=== PATIENT | male | born 1950 | race Caucasian/White ===

== ENCOUNTER → 2017-05-04 | Outpatient (CLI) | payer MEDICARE ==
[2017-05-04 09:15] LABS: HEMATOCRIT 46.6 % (42.0-52.0); HEMOGLOBIN 15.1 g/dl (14.0-18.0); MEAN CORPUSCULAR HEMOGLOBIN 28.9 pg (27.0-33.0); MEAN CORPUSCULAR HGB CONC 32.4 g/dl (32.0-36.5); MEAN CORPUSCULAR VOLUME 89.1 fl (80.0-96.0); PLATELET COUNT, AUTOMATED 186 10^3/uL (150-450); RED BLOOD COUNT 5.23 10^6/uL (4.30-6.10); RED CELL DISTRIBUTION WIDTH 14.4 % (11.5-14.5); WHITE BLOOD COUNT 7.8 10^3/uL (4.0-10.0)
[2017-05-04 09:40] LABS: ESTIMATED AVERAGE GLUCOSE 134 MG/DL (60-110); HEMOGLOBIN A1c 6.3 %
[2017-05-04 09:41] LABS: ALBUMIN 3.5 GM/DL (3.2-5.2); ALBUMIN/GLOBULIN RATIO 0.78 (1.00-1.93); ALKALINE PHOSPHATASE 76 U/L (45-117); ALT/SGPT 30 U/L (12-78); ANION GAP 8 MEQ/L (8-16); AST/SGOT 26 U/L (7-37); BILIRUBIN,TOTAL 0.6 MG/DL (0.2-1.0); BLOOD UREA NITROGEN 15 MG/DL (7-18); CALCIUM LEVEL 9.1 MG/DL (8.8-10.2); CARBON DIOXIDE LEVEL 30 MEQ/L (21-32); CHLORIDE LEVEL 104 MEQ/L (98-107); CREATININE FOR GFR 0.75 MG/DL (0.70-1.30); FREE T4 0.88 NG/DL (0.76-1.46); GLOMERULAR FILTRATION RATE > 60.0 (>49); GLUCOSE, FASTING 127 MG/DL (70-100); SODIUM LEVEL 142 MEQ/L (136-145)
== END ==
LOC: M WUC 08:14
DX: E11.65 Type 2 diabetes mellitus with hyperglycemia (principal)
CPT/HCPCS: 84443

== ENCOUNTER → 2017-09-08 | Outpatient (CLI) | payer MEDICARE ==
[2017-09-08 12:30] LABS: ALBUMIN 3.4 GM/DL (3.2-5.2); ALBUMIN/GLOBULIN RATIO 0.79 (1.00-1.93); ALKALINE PHOSPHATASE 79 U/L (45-117); ALT/SGPT 36 U/L (12-78); ANION GAP 10 MEQ/L (8-16); AST/SGOT 29 U/L (7-37); BILIRUBIN,TOTAL 0.7 MG/DL (0.2-1.0); BLOOD UREA NITROGEN 14 MG/DL (7-18); CARBON DIOXIDE LEVEL 26 MEQ/L (21-32); CHLORIDE LEVEL 105 MEQ/L (98-107); CHOLESTEROL LEVEL 161 MG/DL (<200); CHOLESTEROL RISK RATIO 3.096 (<5); CREATININE FOR GFR 0.69 MG/DL (0.70-1.30); GLOMERULAR FILTRATION RATE > 60.0 (>49); GLUCOSE, FASTING 139 MG/DL (70-100); HDL CHOLESTEROL 52 MG/DL (>40); LDL CHOLESTEROL 87.4 MG/DL (<100); NON-HDL-C 109 MG/DL; POTASSIUM SERUM 4.8 MEQ/L (3.5-5.1); SODIUM LEVEL 141 MEQ/L (136-145); TOTAL PROTEIN 7.7 GM/DL (6.4-8.2); TRIGLYCERIDES LEVEL 108 MG/DL (<150)
[2017-09-08 12:51] LABS: MALB URINE SIEMENS 48.1 MG/L; MAU/CREAT RATIO 42.1 MCG/MG (0.0-30.0)
[2017-09-08 12:52] LABS: ESTIMATED AVERAGE GLUCOSE 154 MG/DL (60-110)
== END ==
LOC: M WUC 08:15
DX: E11.65 Type 2 diabetes mellitus with hyperglycemia (principal)
CPT/HCPCS: 80053

== ENCOUNTER → 2018-02-15 | Outpatient (CLI) | payer MEDICARE ==
[2018-02-15 09:56] LABS: ANION GAP 7 MEQ/L (8-16); BLOOD UREA NITROGEN 15 MG/DL (7-18); CALCIUM LEVEL 9.6 MG/DL (8.8-10.2); CARBON DIOXIDE LEVEL 30 MEQ/L (21-32); CHLORIDE LEVEL 103 MEQ/L (98-107); CREATININE FOR GFR 0.68 MG/DL (0.70-1.30); GLOMERULAR FILTRATION RATE > 60.0 (>49); GLUCOSE, FASTING 117 MG/DL (70-100); POTASSIUM SERUM 4.2 MEQ/L (3.5-5.1); SODIUM LEVEL 140 MEQ/L (136-145)
[2018-02-15 10:46] LABS: ESTIMATED AVERAGE GLUCOSE 137 MG/DL (60-110); HEMOGLOBIN A1c 6.4 %
== END ==
LOC: M WUC 08:13
DX: E11.65 Type 2 diabetes mellitus with hyperglycemia (principal)
CPT/HCPCS: 83036

== ENCOUNTER → 2018-11-15 | Outpatient (CLI) | payer MEDICARE ==
[~2018-11-15] MED LIST: FLOM0.4C39 PO; HYDR12.55 PO; LISI5TAB PO; METF1000 PO; OXYB5TAB PO; PROSCAR PO; SEPTRA DS PO
[2018-11-15 09:44] LABS: ALBUMIN 3.4 GM/DL (3.2-5.2); ALT/SGPT 22 U/L (12-78); BILIRUBIN,TOTAL 0.6 MG/DL (0.2-1.0); BLOOD UREA NITROGEN 18 MG/DL (7-18); CALCIUM LEVEL 9.4 MG/DL (8.8-10.2); CARBON DIOXIDE LEVEL 29 MEQ/L (21-32); CHLORIDE LEVEL 104 MEQ/L (98-107); CHOLESTEROL LEVEL 166 MG/DL (<200); CHOLESTEROL RISK RATIO 3.074 (<5); CREATININE FOR GFR 0.68 MG/DL (0.70-1.30); GLOMERULAR FILTRATION RATE > 60.0 (>49); GLUCOSE, FASTING 111 MG/DL (70-100); HDL CHOLESTEROL 54 MG/DL (>40); LDL CHOLESTEROL 88 MG/DL (<100); NON-HDL-C 112 MG/DL; POTASSIUM SERUM 4.5 MEQ/L (3.5-5.1); SODIUM LEVEL 141 MEQ/L (136-145); TOTAL PROTEIN 7.6 GM/DL (6.4-8.2); TRIGLYCERIDES LEVEL 119 MG/DL (<150)
[2018-11-15 09:46] LABS: CREATININE, URINE 77.9 MG/DL; MALB URINE SIEMENS 46.6 MG/L; MAU/CREAT RATIO 59.8 MCG/MG (0.0-30.0)
[2018-11-15 14:24] LABS: HEMOGLOBIN A1c 6.2 %
== END ==
LOC: M WUC 08:14
PROVIDERS: ATTEND Family Medicine
DX: E11.65 Type 2 diabetes mellitus with hyperglycemia (principal)

== ENCOUNTER → 2019-04-26 | Outpatient (CLI) | payer MEDICARE ==
[2019-04-26 10:42] LABS: HEMATOCRIT 48.9 % (42.0-52.0); HEMOGLOBIN 15.1 g/dl (13.5-17.5); MEAN CORPUSCULAR HGB CONC 30.9 g/dl (32.0-36.5); MEAN CORPUSCULAR VOLUME 90.6 fl (80.0-96.0); PLATELET COUNT, AUTOMATED 198 10^3/uL (150-450); WHITE BLOOD COUNT 7.8 10^3/uL (4.0-10.0)
[2019-04-26 10:58] LABS: HEMOGLOBIN A1c 6.7 %
[2019-04-26 11:13] LABS: ALBUMIN 3.4 GM/DL (3.2-5.2); ALT/SGPT 23 U/L (12-78); BILIRUBIN,TOTAL 0.7 MG/DL (0.2-1.0); BLOOD UREA NITROGEN 16 MG/DL (7-18); CALCIUM LEVEL 9.6 MG/DL (8.8-10.2); CARBON DIOXIDE LEVEL 30 MEQ/L (21-32); CHLORIDE LEVEL 104 MEQ/L (98-107); CREATININE FOR GFR 0.66 MG/DL (0.70-1.30); GLOMERULAR FILTRATION RATE > 60.0 (>49); GLUCOSE, FASTING 130 MG/DL (70-100); POTASSIUM SERUM 4.5 MEQ/L (3.5-5.1); SODIUM LEVEL 142 MEQ/L (136-145); TOTAL PROTEIN 7.6 GM/DL (6.4-8.2)
== END ==
LOC: M WUC 08:36
PROVIDERS: ATTEND Family Medicine
DX: I87.329 Chronic venous hypertension (idiopathic) with inflammation of unspecified lower extremity (principal); E11.65 Type 2 diabetes mellitus with hyperglycemia

== ENCOUNTER 2021-08-06 20:44 | Emergency (ER) | payer MEDICARE ==
[~2021-08-06] VITALS: Ht 170.2 cm; Wt 156.0 kg
[~2021-08-06 20:44] MED LIST changes: +ACET1TAB55 PO; +BISA10SU PR; +C 50TAB PO; +CINN500C2 PO; +COLA100C5 PO; +FINA5TAB2 PO; +FURO40TA2 PO; +GARL500C2 PO; +GLIM2TAB4 PO; +HEPA500023 SQ; +IBUP-1720 PO; +LIDO2URO TOP; +LISI10TA22 PO; +MAGN400T35 PO; +METF10004 PO; +MIRA1POW3 PO; +NYST10006 TOP; +SENN18TA PO; +VITA100093 PO; +VITATAB73 PO; +ZINC1TAB2 PO
[2021-08-06] MEDS ORDERED: LIDOCAINE 2% 5ML JELLY UROJET TOP ONE (21:10)
[2021-08-06 23:00] VITALS: BP 135/74
== END 2021-08-07 00:54 | disposition home or self-care (01) ==
LOC: M ED 20:44 → EDBD 20:44 → M ED 08-07 00:54
DX: T83.098A Other mechanical complication of other urinary catheter, initial encounter (principal); R31.9 Hematuria, unspecified; N40.1 Benign prostatic hyperplasia with lower urinary tract symptoms; E11.9 Type 2 diabetes mellitus without complications; I50.9 Heart failure, unspecified; Z87.442 Personal history of urinary calculi; Z79.84 Long term (current) use of oral hypoglycemic drugs; Z79.899 Other long term (current) drug therapy

== ENCOUNTER 2021-08-07 10:50 | Emergency (ER) | payer MEDICARE ==
[~2021-08-07] VITALS: Ht 170.2 cm; Wt 154.6 kg
[2021-08-07 14:42] VITALS: BP 120/68
== END 2021-08-07 14:45 | disposition home or self-care (01) ==
LOC: M ED 10:50 → EDBD 10:50 → M ED 14:45
DX: R31.0 Gross hematuria (principal); T83.098A Other mechanical complication of other urinary catheter, initial encounter; N40.1 Benign prostatic hyperplasia with lower urinary tract symptoms; E11.9 Type 2 diabetes mellitus without complications; Z87.442 Personal history of urinary calculi; Z79.84 Long term (current) use of oral hypoglycemic drugs; Z79.899 Other long term (current) drug therapy; Z88.7 Allergy status to serum and vaccine

== ENCOUNTER 2021-08-09 13:43 | Inpatient (IN) | payer MEDICARE ==
[~2021-08-09] VITALS: Ht 170.2 cm; Wt 147.6 kg
[~2021-08-09 13:43] MED LIST changes: +ENOXAPARIN 60MG/0.6ML SYRINGE (J1650 PER 10MG) SC SCH
[2021-08-09 14:58] LABS: BASO % 0.3 % (0.0-1.0); EOS # 0.1 10^3/uL (0.0-0.5); EOS % 1.2 % (0.0-3.0); HEMATOCRIT 43.8 % (42.0-52.0); HEMOGLOBIN 14.1 g/dl (13.5-17.5); LYMPH # 0.8 10^3/uL (1.5-5.0); LYMPH % 12.8 % (24.0-44.0); MEAN CORPUSCULAR HEMOGLOBIN 28.5 pg (27.0-33.0); MEAN CORPUSCULAR HGB CONC 32.2 g/dl (32.0-36.5); MEAN CORPUSCULAR VOLUME 88.5 fl (80.0-96.0); MONO # 0.6 10^3/uL (0.0-0.8); NEUTROPHILS % 76.2 % (36.0-66.0); PLATELET COUNT, AUTOMATED 134 10^3/uL (150-450); RED BLOOD COUNT 4.95 10^6/uL (4.30-6.10); WHITE BLOOD COUNT 6.6 10^3/uL (4.0-10.0)
[2021-08-09 15:24] LABS: BLOOD UREA NITROGEN 27 MG/DL (7-18); CALCIUM LEVEL 9.2 MG/DL (8.8-10.2); CARBON DIOXIDE LEVEL 26 MEQ/L (21-32); CHLORIDE LEVEL 109 MEQ/L (98-107); CREATININE FOR GFR 1.01 MG/DL (0.70-1.30); GLOMERULAR FILTRATION RATE > 60.0 (>42); GLUCOSE, FASTING 128 MG/DL (70-100); SODIUM LEVEL 145 MEQ/L (136-145)
[2021-08-09 15:49] LABS: RSV AMPLIFICATION NEGATIVE (NEGATIVE)
[2021-08-09] MEDS ORDERED: cefTRIAXone SOD 1 GM in D5W MINI-BAG PLUS 50 ML IV ONE (16:00)
[2021-08-09] MEDS ORDERED: GLUCOSE 4GM CHEW TABLET PO PRN (16:40)
[2021-08-09] MEDS ORDERED: GLUCAGON INJ 1MG VIAL SC PRN (16:40)
[2021-08-09] MEDS ORDERED: DEXTROSE 50% 50 ML SYRINGE IV PRN (16:40)
[2021-08-09] MEDS ORDERED: DOCU100C16 PO (16:41)
[2021-08-09] MEDS ORDERED: LISI10TA22 PO (16:41)
[2021-08-09] MEDS ORDERED: SENN-80 PO (16:41)
[2021-08-09] MEDS ORDERED: FURO20TA2 PO (16:41)
[2021-08-09] MEDS ORDERED: POLY1POW38 PO (16:41)
[2021-08-09] MEDS ORDERED: BISA10SU27 PR (16:41)
[2021-08-09] MEDS ORDERED: ACET1TAB55 PO (16:41)
[2021-08-09] MEDS ORDERED: IBUP-1720 PO (17:08)
[2021-08-09] MEDS ORDERED: HOME MED LIST COMPLETE! XX SCH (17:10)
[2021-08-09 18:00] VITALS: BP 105/52
[2021-08-09] MEDS: dexameTHASONE 20MG/5ML VIAL (J1100 PER 1MG) IV SCH (18:52)
[2021-08-09] MEDS: INSULIN LISPRO (NovoLOG) PER UNIT SC SCH ×2 (18:52→21:00)
[2021-08-09 19:22] VITALS: BP 115/56
[2021-08-09 19:28] LABS: ALBUMIN 2.3 GM/DL (3.2-5.2); BILIRUBIN,DIRECT 0.3 MG/DL (0.0-0.2); BILIRUBIN,TOTAL 0.6 MG/DL (0.2-1.0); TOTAL PROTEIN 7.4 GM/DL (6.4-8.2)
[2021-08-09] MEDS ORDERED: REMDESIVIR 200 MG in NS 250 ML IV ONE (21:00)
[2021-08-09] MEDS: DOXYCYCLINE HYCLATE 100MG TABLET PO SCH (21:54)
[2021-08-09] MEDS: CEFEPIME HCL 2 GM in D5W MINI-BAG PLUS 50 ML IV SCH (21:56)
[2021-08-09] MEDS ORDERED: SODIUM CHLORIDE 0.9% INJ 10 ML SYR IV ONE (22:00)
[2021-08-10] VITALS (10 sets, daily range): BP systolic 104–149; BP diastolic 54–82; O2SAT 90–94
[2021-08-10] MEDS: NYSTATIN 100,000 UNITS/GM TOPICAL PWD 15 GM TOP SCH ×3 (02:09→21:57)
[2021-08-10] MEDS: CEFEPIME HCL 2 GM in D5W MINI-BAG PLUS 50 ML IV SCH (04:10)
[2021-08-10] MEDS: ENOXAPARIN 60MG/0.6ML SYRINGE (J1650 PER 10MG) SC SCH ×2 (05:07→17:06)
[2021-08-10 08:08] LABS: BASO % 0.2 % (0.0-1.0); HEMATOCRIT 41.3 % (42.0-52.0); HEMOGLOBIN 13.1 g/dl (13.5-17.5); LYMPH # 0.8 10^3/uL (1.5-5.0); LYMPH % 12.7 % (24.0-44.0); MEAN CORPUSCULAR HEMOGLOBIN 28.3 pg (27.0-33.0); MEAN CORPUSCULAR HGB CONC 31.7 g/dl (32.0-36.5); MEAN CORPUSCULAR VOLUME 89.2 fl (80.0-96.0); MONO # 0.5 10^3/uL (0.0-0.8); MONO % 7.8 % (2.0-8.0); NEUTROPHILS # 4.7 10^3/uL (1.5-8.5); PLATELET COUNT, AUTOMATED 146 10^3/uL (150-450); RED BLOOD COUNT 4.63 10^6/uL (4.30-6.10)
[2021-08-10 08:33] LABS: ALBUMIN 2.1 GM/DL (3.2-5.2); ALT/SGPT 19 U/L (12-78); BILIRUBIN,DIRECT 0.2 MG/DL (0.0-0.2); BILIRUBIN,TOTAL 0.4 MG/DL (0.2-1.0); BLOOD UREA NITROGEN 26 MG/DL (7-18); CALCIUM LEVEL 9.1 MG/DL (8.8-10.2); CARBON DIOXIDE LEVEL 28 MEQ/L (21-32); CHLORIDE LEVEL 110 MEQ/L (98-107); CREATININE FOR GFR 0.99 MG/DL (0.70-1.30); GLOMERULAR FILTRATION RATE > 60.0 (>42); GLUCOSE, FASTING 136 MG/DL (70-100); PHOSPHORUS LEVEL 4.3 MG/DL (2.5-4.9); POTASSIUM SERUM 3.9 MEQ/L (3.5-5.1); SODIUM LEVEL 143 MEQ/L (136-145); TOTAL PROTEIN 7.8 GM/DL (6.4-8.2)
[2021-08-10] MEDS: MUPIROCIN 2% OINT 22 GM TUBE TOP SCH (09:00)
[2021-08-10] MEDS: FUROSEMIDE 20MG/2ML VIAL (J1940) IV SCH (09:36)
[2021-08-10] MEDS: BARICITINIB 2MG TABLET (OLUMIANT) FOR EUA PO SCH (09:36)
[2021-08-10] MEDS: INSULIN LISPRO (NovoLOG) PER UNIT SC SCH ×4 (09:37→21:00)
[2021-08-10] MEDS: DOXYCYCLINE HYCLATE 100MG TABLET PO SCH ×2 (09:37→21:56)
[2021-08-10] MEDS: ASCORBIC ACID 500 MG TAB PO SCH (09:37)
[2021-08-10] MEDS: TAMSULOSIN 0.4 MG CAP PO SCH (09:37)
[2021-08-10] MEDS: VITAMIN D 1,000 INTERNATIONAL UNITS TABLET PO SCH (09:37)
[2021-08-10] MEDS: FINASTERIDE 5MG TAB PO SCH (09:38)
[2021-08-10] MEDS ORDERED: LEVALBUTEROL HFA 45MCG/ACT 15 GM INHALER INH PRN (09:45)
[2021-08-10] MEDS: AMPICILLIN SOD/SULBACTAM SOD 3 GM in D5W MINI-BAG PLUS 100 ML IV SCH ×3 (12:46→23:19)
[2021-08-10] MEDS: dexameTHASONE 20MG/5ML VIAL (J1100 PER 1MG) IV SCH (17:05)
[2021-08-10] MEDS: REMDESIVIR 100 MG in NS 250 ML IV SCH (21:57)
[2021-08-10] MEDS: SODIUM CHLORIDE 0.9% INJ 10 ML SYR IV SCH (23:19)
[2021-08-11] VITALS (16 sets, daily range): BP systolic 101–144; BP diastolic 52–66; O2SAT 91–98
[2021-08-11] MEDS: ACETAMINOPHEN TAB 650MG DOSE (2X325MG) PO PRN ×3 (00:30→17:15)
[2021-08-11] MEDS: ENOXAPARIN 60MG/0.6ML SYRINGE (J1650 PER 10MG) SC SCH ×2 (05:44→17:14)
[2021-08-11] MEDS: AMPICILLIN SOD/SULBACTAM SOD 3 GM in D5W MINI-BAG PLUS 100 ML IV SCH ×4 (05:45→22:42)
[2021-08-11 08:16] LABS: BASO % 0.2 % (0.0-1.0); HEMATOCRIT 42.2 % (42.0-52.0); HEMOGLOBIN 13.3 g/dl (13.5-17.5); LYMPH # 0.9 10^3/uL (1.5-5.0); LYMPH % 20.6 % (24.0-44.0); MEAN CORPUSCULAR HEMOGLOBIN 28.3 pg (27.0-33.0); MEAN CORPUSCULAR HGB CONC 31.5 g/dl (32.0-36.5); MEAN CORPUSCULAR VOLUME 89.8 fl (80.0-96.0); MONO # 0.4 10^3/uL (0.0-0.8); MONO % 8.8 % (2.0-8.0); NEUTROPHILS % 69.9 % (36.0-66.0); PLATELET COUNT, AUTOMATED 175 10^3/uL (150-450); WHITE BLOOD COUNT 4.2 10^3/uL (4.0-10.0)
[2021-08-11] MEDS: DOXYCYCLINE HYCLATE 100MG TABLET PO SCH ×2 (08:19→20:28)
[2021-08-11] MEDS: ASCORBIC ACID 500 MG TAB PO SCH (08:20)
[2021-08-11] MEDS: TAMSULOSIN 0.4 MG CAP PO SCH (08:20)
[2021-08-11] MEDS: FINASTERIDE 5MG TAB PO SCH (08:20)
[2021-08-11] MEDS: BARICITINIB 2MG TABLET (OLUMIANT) FOR EUA PO SCH (08:20)
[2021-08-11] MEDS: VITAMIN D 1,000 INTERNATIONAL UNITS TABLET PO SCH (08:20)
[2021-08-11] MEDS: MUPIROCIN 2% OINT 22 GM TUBE TOP SCH (08:22)
[2021-08-11] MEDS: FUROSEMIDE 20MG/2ML VIAL (J1940) IV SCH (08:22)
[2021-08-11] MEDS: NYSTATIN 100,000 UNITS/GM TOPICAL PWD 15 GM TOP SCH ×2 (08:23→20:28)
[2021-08-11 08:58] LABS: ALBUMIN 2.1 GM/DL (3.2-5.2); ALT/SGPT 22 U/L (12-78); BILIRUBIN,TOTAL 0.4 MG/DL (0.2-1.0); BLOOD UREA NITROGEN 28 MG/DL (7-18); C REACTIVE PROTEIN QUANTITATIV 6.64 MG/DL (0.00-0.30); CALCIUM LEVEL 9.2 MG/DL (8.8-10.2); CARBON DIOXIDE LEVEL 31 MEQ/L (21-32); CHLORIDE LEVEL 108 MEQ/L (98-107); CREATININE FOR GFR 0.92 MG/DL (0.70-1.30); GLOMERULAR FILTRATION RATE > 60.0 (>42); GLUCOSE, FASTING 132 MG/DL (70-100); MAGNESIUM LEVEL 2.1 MG/DL (1.8-2.4); PHOSPHORUS LEVEL 3.1 MG/DL (2.5-4.9); POTASSIUM SERUM 4.4 MEQ/L (3.5-5.1); SODIUM LEVEL 144 MEQ/L (136-145); TOTAL PROTEIN 7.9 GM/DL (6.4-8.2)
[2021-08-11] MEDS: INSULIN LISPRO (NovoLOG) PER UNIT SC SCH ×4 (09:14→20:28)
[2021-08-11] MEDS: dexameTHASONE 20MG/5ML VIAL (J1100 PER 1MG) IV SCH (17:14)
[2021-08-11] MEDS: SODIUM CHLORIDE 0.9% INJ 10 ML SYR IV SCH (20:28)
[2021-08-11] MEDS: REMDESIVIR 100 MG in NS 250 ML IV SCH (20:28)
[2021-08-11] MEDS ORDERED: IBUPROFEN 400MG TAB PO ONE (22:10)
[2021-08-12 05:21] VITALS: BP 130/61
[2021-08-12] MEDS: AMPICILLIN SOD/SULBACTAM SOD 3 GM in D5W MINI-BAG PLUS 100 ML IV SCH ×2 (05:31→10:12)
[2021-08-12] MEDS: ENOXAPARIN 60MG/0.6ML SYRINGE (J1650 PER 10MG) SC SCH ×2 (05:31→17:18)
[2021-08-12 06:47] LABS: HEMATOCRIT 41.3 % (42.0-52.0); HEMOGLOBIN 13.3 g/dl (13.5-17.5); LYMPH % 26.3 % (24.0-44.0); MEAN CORPUSCULAR HEMOGLOBIN 28.2 pg (27.0-33.0); MEAN CORPUSCULAR HGB CONC 32.2 g/dl (32.0-36.5); MEAN CORPUSCULAR VOLUME 87.7 fl (80.0-96.0); MONO # 0.4 10^3/uL (0.0-0.8); MONO % 10.1 % (2.0-8.0); NEUTROPHILS # 2.5 10^3/uL (1.5-8.5); NEUTROPHILS % 63.3 % (36.0-66.0); PLATELET COUNT, AUTOMATED 179 10^3/uL (150-450); RED BLOOD COUNT 4.71 10^6/uL (4.30-6.10)
[2021-08-12 07:05] LABS: BLOOD UREA NITROGEN 30 MG/DL (7-18); CALCIUM LEVEL 9.1 MG/DL (8.8-10.2); CARBON DIOXIDE LEVEL 28 MEQ/L (21-32); CHLORIDE LEVEL 107 MEQ/L (98-107); CREATININE FOR GFR 0.86 MG/DL (0.70-1.30); GLOMERULAR FILTRATION RATE > 60.0 (>42); GLUCOSE, FASTING 159 MG/DL (70-100); POTASSIUM SERUM 3.9 MEQ/L (3.5-5.1); SODIUM LEVEL 142 MEQ/L (136-145)
[2021-08-12 07:55] VITALS: BP 152/67
[2021-08-12] MEDS: FINASTERIDE 5MG TAB PO SCH (08:43)
[2021-08-12] MEDS: ASCORBIC ACID 500 MG TAB PO SCH (08:43)
[2021-08-12] MEDS: VITAMIN D 1,000 INTERNATIONAL UNITS TABLET PO SCH (08:43)
[2021-08-12] MEDS: DOXYCYCLINE HYCLATE 100MG TABLET PO SCH ×2 (08:43→21:21)
[2021-08-12] MEDS: TAMSULOSIN 0.4 MG CAP PO SCH (08:43)
[2021-08-12] MEDS: BARICITINIB 2MG TABLET (OLUMIANT) FOR EUA PO SCH (08:44)
[2021-08-12] MEDS: INSULIN LISPRO (NovoLOG) PER UNIT SC SCH ×4 (08:44→21:00)
[2021-08-12] MEDS: FUROSEMIDE 20MG/2ML VIAL (J1940) IV SCH (08:45)
[2021-08-12] MEDS: NYSTATIN 100,000 UNITS/GM TOPICAL PWD 15 GM TOP SCH ×2 (08:45→21:22)
[2021-08-12] MEDS: MUPIROCIN 2% OINT 22 GM TUBE TOP SCH (08:45)
[2021-08-12 09:00] VITALS: O2SAT 94
[2021-08-12] MEDS: ACETAMINOPHEN TAB 650MG DOSE (2X325MG) PO PRN ×2 (11:05→21:21)
[2021-08-12] MEDS: MOM 30ML SUSPENSION UDC PO PRN (12:29)
[2021-08-12] MEDS: DOCUSATE SODIUM 100MG CAPSULE PO SCH ×2 (12:29→21:21)
[2021-08-12 16:00] VITALS: BP 141/65
[2021-08-12] MEDS: dexameTHASONE 20MG/5ML VIAL (J1100 PER 1MG) IV SCH (17:19)
[2021-08-12 20:00] VITALS: BP 123/59
[2021-08-12] MEDS: AUGMENTIN 875 MG TAB PO SCH (21:21)
[2021-08-12] MEDS: REMDESIVIR 100 MG in NS 250 ML IV SCH (21:21)
[2021-08-12] MEDS: LEVEMIR (INSULIN DETEMIR) 1 UNITS/0.01ML SC SCH (21:27)
[2021-08-12] MEDS: SODIUM CHLORIDE 0.9% INJ 10 ML SYR IV SCH (22:00)
[2021-08-12 23:33] VITALS: BP 140/73
[2021-08-13 05:28] VITALS: BP 149/73
[2021-08-13] MEDS: ENOXAPARIN 60MG/0.6ML SYRINGE (J1650 PER 10MG) SC SCH ×2 (05:28→17:14)
[2021-08-13] MEDS: IBUPROFEN 600MG TAB PO PRN ×3 (05:59→22:16)
[2021-08-13 07:25] LABS: HEMATOCRIT 43.1 % (42.0-52.0); HEMOGLOBIN 13.7 g/dl (13.5-17.5); MEAN CORPUSCULAR HEMOGLOBIN 28.1 pg (27.0-33.0); MEAN CORPUSCULAR HGB CONC 31.8 g/dl (32.0-36.5); MEAN CORPUSCULAR VOLUME 88.5 fl (80.0-96.0); PLATELET COUNT, AUTOMATED 208 10^3/uL (150-450); RED BLOOD COUNT 4.87 10^6/uL (4.30-6.10)
[2021-08-13 07:36] LABS: BLOOD UREA NITROGEN 25 MG/DL (7-18); C REACTIVE PROTEIN QUANTITATIV 1.64 MG/DL (0.00-0.30); CALCIUM LEVEL 8.9 MG/DL (8.8-10.2); CARBON DIOXIDE LEVEL 33 MEQ/L (21-32); CHLORIDE LEVEL 104 MEQ/L (98-107); CREATININE FOR GFR 0.83 MG/DL (0.70-1.30); GLOMERULAR FILTRATION RATE > 60.0 (>42); GLUCOSE, FASTING 142 MG/DL (70-100); MAGNESIUM LEVEL 1.9 MG/DL (1.8-2.4); POTASSIUM SERUM 4.3 MEQ/L (3.5-5.1); SODIUM LEVEL 139 MEQ/L (136-145)
[2021-08-13 08:00] VITALS: BP 136/61
[2021-08-13] MEDS: VITAMIN D 1,000 INTERNATIONAL UNITS TABLET PO SCH (08:15)
[2021-08-13] MEDS: TAMSULOSIN 0.4 MG CAP PO SCH (08:15)
[2021-08-13] MEDS: ASCORBIC ACID 500 MG TAB PO SCH (08:15)
[2021-08-13] MEDS: DOCUSATE SODIUM 100MG CAPSULE PO SCH ×2 (08:16→20:34)
[2021-08-13] MEDS: FUROSEMIDE 20MG/2ML VIAL (J1940) IV SCH (08:16)
[2021-08-13] MEDS: AUGMENTIN 875 MG TAB PO SCH ×2 (08:16→20:34)
[2021-08-13] MEDS: DOXYCYCLINE HYCLATE 100MG TABLET PO SCH ×2 (08:16→20:34)
[2021-08-13] MEDS: FINASTERIDE 5MG TAB PO SCH (08:16)
[2021-08-13] MEDS: MUPIROCIN 2% OINT 22 GM TUBE TOP SCH (08:17)
[2021-08-13] MEDS: INSULIN LISPRO (NovoLOG) PER UNIT SC SCH ×4 (08:17→20:25)
[2021-08-13] MEDS: NYSTATIN 100,000 UNITS/GM TOPICAL PWD 15 GM TOP SCH ×2 (08:22→20:35)
[2021-08-13 18:07] LABS: BODY FLUID CULTURE Not indicated. (.); LEGIONELLA ANTIGEN URINE Negative (Negative); ORGANISM ID Not indicated. (.); SPECIMEN SOURCE Urine (.); URINE STREP PNEUMONIAE ANTIGEN Negative (Negative)
[2021-08-13 20:00] VITALS: BP 133/64
[2021-08-13] MEDS: REMDESIVIR 100 MG in NS 250 ML IV SCH (20:35)
[2021-08-13] MEDS: LEVEMIR (INSULIN DETEMIR) 1 UNITS/0.01ML SC SCH (20:35)
[2021-08-13] MEDS: SODIUM CHLORIDE 0.9% INJ 10 ML SYR IV SCH (21:53)
[2021-08-14 04:00] VITALS: BP 125/65
[2021-08-14] MEDS: ENOXAPARIN 60MG/0.6ML SYRINGE (J1650 PER 10MG) SC SCH ×2 (05:33→17:36)
[2021-08-14 06:34] LABS: HEMATOCRIT 42.7 % (42.0-52.0); HEMOGLOBIN 13.4 g/dl (13.5-17.5); MEAN CORPUSCULAR HEMOGLOBIN 27.6 pg (27.0-33.0); MEAN CORPUSCULAR HGB CONC 31.4 g/dl (32.0-36.5); PLATELET COUNT, AUTOMATED 220 10^3/uL (150-450); RED BLOOD COUNT 4.85 10^6/uL (4.30-6.10); WHITE BLOOD COUNT 6.8 10^3/uL (4.0-10.0)
[2021-08-14 06:54] LABS: BLOOD UREA NITROGEN 27 MG/DL (7-18); CALCIUM LEVEL 8.9 MG/DL (8.8-10.2); CARBON DIOXIDE LEVEL 29 MEQ/L (21-32); CHLORIDE LEVEL 109 MEQ/L (98-107); CREATININE FOR GFR 0.85 MG/DL (0.70-1.30); GLOMERULAR FILTRATION RATE > 60.0 (>42); GLUCOSE, FASTING 104 MG/DL (70-100); MAGNESIUM LEVEL 1.9 MG/DL (1.8-2.4); POTASSIUM SERUM 3.6 MEQ/L (3.5-5.1); SODIUM LEVEL 144 MEQ/L (136-145)
[2021-08-14] MEDS: INSULIN LISPRO (NovoLOG) PER UNIT SC SCH ×4 (07:30→20:41)
[2021-08-14] MEDS: FINASTERIDE 5MG TAB PO SCH (09:04)
[2021-08-14] MEDS: FUROSEMIDE 40 MG TAB PO SCH (09:04)
[2021-08-14] MEDS: ASCORBIC ACID 500 MG TAB PO SCH (09:04)
[2021-08-14] MEDS: VITAMIN D 1,000 INTERNATIONAL UNITS TABLET PO SCH (09:04)
[2021-08-14] MEDS: IBUPROFEN 600MG TAB PO PRN ×2 (09:04→20:53)
[2021-08-14] MEDS: TAMSULOSIN 0.4 MG CAP PO SCH (09:04)
[2021-08-14] MEDS: AUGMENTIN 875 MG TAB PO SCH ×2 (09:04→20:41)
[2021-08-14] MEDS: DOCUSATE SODIUM 100MG CAPSULE PO SCH (09:05)
[2021-08-14] MEDS: DOXYCYCLINE HYCLATE 100MG TABLET PO SCH ×2 (09:05→20:41)
[2021-08-14] MEDS: MUPIROCIN 2% OINT 22 GM TUBE TOP SCH (09:06)
[2021-08-14] MEDS: NYSTATIN 100,000 UNITS/GM TOPICAL PWD 15 GM TOP SCH ×2 (09:06→20:42)
[2021-08-14 20:00] VITALS: BP 108/53
[2021-08-14] MEDS: LEVEMIR (INSULIN DETEMIR) 1 UNITS/0.01ML SC SCH (20:41)
[2021-08-14] MEDS: SENOKOT S TAB PO SCH (20:41)
[2021-08-14] MEDS: SIMETHICONE 80MG CHEW TAB PO PRN (20:53)
[2021-08-15 04:00] VITALS: BP 120/60
[2021-08-15] MEDS: ENOXAPARIN 60MG/0.6ML SYRINGE (J1650 PER 10MG) SC SCH ×2 (05:28→18:08)
[2021-08-15] MEDS: IBUPROFEN 600MG TAB PO PRN ×2 (06:04→14:12)
[2021-08-15] MEDS: FUROSEMIDE 40 MG TAB PO SCH (09:07)
[2021-08-15] MEDS: SENOKOT S TAB PO SCH ×2 (09:07→21:00)
[2021-08-15] MEDS: ASCORBIC ACID 500 MG TAB PO SCH (09:08)
[2021-08-15] MEDS: TAMSULOSIN 0.4 MG CAP PO SCH (09:08)
[2021-08-15] MEDS: DOXYCYCLINE HYCLATE 100MG TABLET PO SCH ×2 (09:08→21:00)
[2021-08-15] MEDS: VITAMIN D 1,000 INTERNATIONAL UNITS TABLET PO SCH (09:08)
[2021-08-15] MEDS: AUGMENTIN 875 MG TAB PO SCH ×2 (09:11→21:00)
[2021-08-15] MEDS: FINASTERIDE 5MG TAB PO SCH (09:11)
[2021-08-15] MEDS: INSULIN LISPRO (NovoLOG) PER UNIT SC SCH ×4 (09:12→20:32)
[2021-08-15] MEDS: SIMETHICONE 80MG CHEW TAB PO PRN ×2 (09:19→20:59)
[2021-08-15] MEDS: NYSTATIN 100,000 UNITS/GM TOPICAL PWD 15 GM TOP SCH ×2 (09:23→20:58)
[2021-08-15] MEDS: MUPIROCIN 2% OINT 22 GM TUBE TOP SCH (09:25)
[2021-08-15] MEDS: LEVEMIR (INSULIN DETEMIR) 1 UNITS/0.01ML SC SCH (20:59)
[2021-08-15] MEDS: ACETAMINOPHEN TAB 650MG DOSE (2X325MG) PO PRN (21:00)
[2021-08-16 06:00] VITALS: BP 114/57
[2021-08-16] MEDS: IBUPROFEN 600MG TAB PO PRN ×3 (06:13→22:20)
[2021-08-16] MEDS: ENOXAPARIN 60MG/0.6ML SYRINGE (J1650 PER 10MG) SC SCH ×2 (06:14→17:56)
[2021-08-16] MEDS: SIMETHICONE 80MG CHEW TAB PO PRN ×2 (08:27→22:20)
[2021-08-16] MEDS: NYSTATIN 100,000 UNITS/GM TOPICAL PWD 15 GM TOP SCH ×2 (08:28→22:19)
[2021-08-16] MEDS: INSULIN LISPRO (NovoLOG) PER UNIT SC SCH ×4 (08:28→21:00)
[2021-08-16] MEDS: SENOKOT S TAB PO SCH ×2 (08:30→22:20)
[2021-08-16] MEDS: VITAMIN D 1,000 INTERNATIONAL UNITS TABLET PO SCH (08:30)
[2021-08-16] MEDS: ASCORBIC ACID 500 MG TAB PO SCH (08:30)
[2021-08-16] MEDS: DOXYCYCLINE HYCLATE 100MG TABLET PO SCH (08:30)
[2021-08-16] MEDS: TAMSULOSIN 0.4 MG CAP PO SCH (08:30)
[2021-08-16] MEDS: FINASTERIDE 5MG TAB PO SCH (08:30)
[2021-08-16] MEDS: FUROSEMIDE 40 MG TAB PO SCH (08:31)
[2021-08-16] MEDS: MUPIROCIN 2% OINT 22 GM TUBE TOP SCH (08:32)
[2021-08-16] MEDS: MOM 30ML SUSPENSION UDC PO PRN (09:56)
[2021-08-16] MEDS: AUGMENTIN 875 MG TAB PO SCH (09:56)
[2021-08-16] MEDS: LEVEMIR (INSULIN DETEMIR) 1 UNITS/0.01ML SC SCH (22:18)
[2021-08-17 06:00] VITALS: BP 109/65
[2021-08-17] MEDS: ENOXAPARIN 60MG/0.6ML SYRINGE (J1650 PER 10MG) SC SCH ×2 (06:36→18:21)
[2021-08-17] MEDS: IBUPROFEN 600MG TAB PO PRN ×2 (06:37→18:20)
[2021-08-17] MEDS: INSULIN LISPRO (NovoLOG) PER UNIT SC SCH ×4 (07:37→20:59)
[2021-08-17] MEDS: FUROSEMIDE 40 MG TAB PO SCH (09:32)
[2021-08-17] MEDS: VITAMIN D 1,000 INTERNATIONAL UNITS TABLET PO SCH (09:32)
[2021-08-17] MEDS: SENOKOT S TAB PO SCH ×2 (09:32→20:59)
[2021-08-17] MEDS: FINASTERIDE 5MG TAB PO SCH (09:35)
[2021-08-17] MEDS: TAMSULOSIN 0.4 MG CAP PO SCH (09:35)
[2021-08-17] MEDS: ASCORBIC ACID 500 MG TAB PO SCH (09:35)
[2021-08-17] MEDS: MUPIROCIN 2% OINT 22 GM TUBE TOP SCH (09:36)
[2021-08-17] MEDS: NYSTATIN 100,000 UNITS/GM TOPICAL PWD 15 GM TOP SCH ×2 (09:36→21:00)
[2021-08-17] MEDS: MOM 30ML SUSPENSION UDC PO PRN (11:50)
[2021-08-17] MEDS: LEVEMIR (INSULIN DETEMIR) 1 UNITS/0.01ML SC SCH (20:59)
[2021-08-17] MEDS: SIMETHICONE 80MG CHEW TAB PO PRN (20:59)
[2021-08-18 04:30] VITALS: BP 104/54
[2021-08-18] MEDS: IBUPROFEN 600MG TAB PO PRN ×3 (04:39→23:26)
[2021-08-18] MEDS: ENOXAPARIN 60MG/0.6ML SYRINGE (J1650 PER 10MG) SC SCH ×2 (04:40→17:33)
[2021-08-18] MEDS: SENOKOT S TAB PO SCH ×2 (08:46→21:26)
[2021-08-18] MEDS: INSULIN LISPRO (NovoLOG) PER UNIT SC SCH ×4 (08:46→21:00)
[2021-08-18] MEDS: ASCORBIC ACID 500 MG TAB PO SCH (08:47)
[2021-08-18] MEDS: VITAMIN D 1,000 INTERNATIONAL UNITS TABLET PO SCH (08:47)
[2021-08-18] MEDS: FINASTERIDE 5MG TAB PO SCH (08:51)
[2021-08-18] MEDS: TAMSULOSIN 0.4 MG CAP PO SCH (08:51)
[2021-08-18] MEDS: FUROSEMIDE 40 MG TAB PO SCH (08:51)
[2021-08-18] MEDS: NYSTATIN 100,000 UNITS/GM TOPICAL PWD 15 GM TOP SCH ×2 (08:52→21:25)
[2021-08-18] MEDS: MUPIROCIN 2% OINT 22 GM TUBE TOP SCH (08:52)
[2021-08-18] MEDS: SIMETHICONE 80MG CHEW TAB PO PRN (11:47)
[2021-08-18] MEDS: LEVEMIR (INSULIN DETEMIR) 1 UNITS/0.01ML SC SCH (21:26)
[2021-08-18 21:37] VITALS: BP 107/54
[2021-08-19 06:03] VITALS: BP 102/50
[2021-08-19] MEDS: IBUPROFEN 600MG TAB PO PRN ×2 (06:14→16:10)
[2021-08-19] MEDS: ENOXAPARIN 60MG/0.6ML SYRINGE (J1650 PER 10MG) SC SCH ×2 (06:15→17:37)
[2021-08-19] MEDS: MOM 30ML SUSPENSION UDC PO PRN (06:27)
[2021-08-19] MEDS ORDERED: ONDANSETRON 4MG/2ML VIAL IV ONE (07:20)
[2021-08-19 08:49] LABS: HEMATOCRIT 35.5 % (42.0-52.0); HEMOGLOBIN 11.3 g/dl (13.5-17.5); MEAN CORPUSCULAR HEMOGLOBIN 28.3 pg (27.0-33.0); MEAN CORPUSCULAR HGB CONC 31.8 g/dl (32.0-36.5); MEAN CORPUSCULAR VOLUME 88.8 fl (80.0-96.0); PLATELET COUNT, AUTOMATED 250 10^3/uL (150-450); WHITE BLOOD COUNT 9.9 10^3/uL (4.0-10.0)
[2021-08-19] MEDS: VITAMIN D 1,000 INTERNATIONAL UNITS TABLET PO SCH (08:49)
[2021-08-19] MEDS: TAMSULOSIN 0.4 MG CAP PO SCH (08:49)
[2021-08-19] MEDS: ASCORBIC ACID 500 MG TAB PO SCH (08:50)
[2021-08-19] MEDS: ONDANSETRON 4MG ORAL DISINTEGRATING TAB PO PRN ×2 (08:51→16:06)
[2021-08-19] MEDS: SENOKOT S TAB PO SCH ×2 (08:51→22:14)
[2021-08-19] MEDS: FINASTERIDE 5MG TAB PO SCH (08:51)
[2021-08-19] MEDS: FUROSEMIDE 40 MG TAB PO SCH (08:51)
[2021-08-19] MEDS: NYSTATIN 100,000 UNITS/GM TOPICAL PWD 15 GM TOP SCH ×2 (08:52→22:15)
[2021-08-19] MEDS: INSULIN LISPRO (NovoLOG) PER UNIT SC SCH ×4 (08:52→21:00)
[2021-08-19] MEDS: MUPIROCIN 2% OINT 22 GM TUBE TOP SCH (08:53)
[2021-08-19 20:00] VITALS: BP 94/54
[2021-08-19] MEDS: ACETAMINOPHEN TAB 650MG DOSE (2X325MG) PO PRN (22:13)
[2021-08-19] MEDS: LEVEMIR (INSULIN DETEMIR) 1 UNITS/0.01ML SC SCH (22:14)
[2021-08-19 22:21] VITALS: BP 114/57
[2021-08-20] MEDS: IBUPROFEN 600MG TAB PO PRN ×2 (00:12→12:42)
[2021-08-20 04:00] VITALS: BP 126/59
[2021-08-20] MEDS: ENOXAPARIN 60MG/0.6ML SYRINGE (J1650 PER 10MG) SC SCH (05:34)
[2021-08-20 06:41] LABS: ALBUMIN 1.9 GM/DL (3.2-5.2); BILIRUBIN,TOTAL 0.5 MG/DL (0.2-1.0); CALCIUM LEVEL 8.7 MG/DL (8.8-10.2); CREATININE FOR GFR 1.92 MG/DL (0.70-1.30); POTASSIUM SERUM 4.3 MEQ/L (3.5-5.1)
[2021-08-20] MEDS: VITAMIN D 1,000 INTERNATIONAL UNITS TABLET PO SCH (08:36)
[2021-08-20] MEDS: ASCORBIC ACID 500 MG TAB PO SCH (08:36)
[2021-08-20] MEDS: TAMSULOSIN 0.4 MG CAP PO SCH (08:36)
[2021-08-20] MEDS: SENOKOT S TAB PO SCH ×2 (08:36→20:32)
[2021-08-20 08:37] VITALS: BP 122/59
[2021-08-20] MEDS: FUROSEMIDE 40 MG TAB PO SCH (08:37)
[2021-08-20] MEDS: MUPIROCIN 2% OINT 22 GM TUBE TOP SCH (08:39)
[2021-08-20] MEDS: INSULIN LISPRO (NovoLOG) PER UNIT SC SCH ×4 (08:39→20:15)
[2021-08-20] MEDS: FINASTERIDE 5MG TAB PO SCH (08:43)
[2021-08-20] MEDS: NYSTATIN 100,000 UNITS/GM TOPICAL PWD 15 GM TOP SCH ×2 (08:45→20:29)
[2021-08-20 08:46] VITALS: BP 122/59
[2021-08-20 12:03] VITALS: BP 126/61
[2021-08-20] MEDS: ONDANSETRON 4MG ORAL DISINTEGRATING TAB PO PRN (12:41)
[2021-08-20] MEDS: LEVEMIR (INSULIN DETEMIR) 1 UNITS/0.01ML SC SCH (20:32)
[2021-08-20] MEDS: ACETAMINOPHEN TAB 650MG DOSE (2X325MG) PO PRN (20:32)
[2021-08-21 06:02] VITALS: BP 110/58
[2021-08-21 07:46] LABS: HEMATOCRIT 32.9 % (42.0-52.0); HEMOGLOBIN 10.6 g/dl (13.5-17.5); MEAN CORPUSCULAR HEMOGLOBIN 28.8 pg (27.0-33.0); MEAN CORPUSCULAR HGB CONC 32.2 g/dl (32.0-36.5); MEAN CORPUSCULAR VOLUME 89.4 fl (80.0-96.0); PLATELET COUNT, AUTOMATED 239 10^3/uL (150-450); RED BLOOD COUNT 3.68 10^6/uL (4.30-6.10); WHITE BLOOD COUNT 9.4 10^3/uL (4.0-10.0)
[2021-08-21 08:09] LABS: BILIRUBIN,TOTAL 0.4 MG/DL (0.2-1.0); CALCIUM LEVEL 8.7 MG/DL (8.8-10.2); CREATININE FOR GFR 1.94 MG/DL (0.70-1.30); GLOMERULAR FILTRATION RATE 36.6 (>42); POTASSIUM SERUM 4.6 MEQ/L (3.5-5.1)
[2021-08-21] MEDS: SENOKOT S TAB PO SCH ×2 (08:40→20:17)
[2021-08-21] MEDS: TAMSULOSIN 0.4 MG CAP PO SCH (08:41)
[2021-08-21] MEDS: FINASTERIDE 5MG TAB PO SCH (08:41)
[2021-08-21] MEDS: INSULIN LISPRO (NovoLOG) PER UNIT SC SCH ×4 (08:41→20:10)
[2021-08-21] MEDS: ASCORBIC ACID 500 MG TAB PO SCH (08:41)
[2021-08-21] MEDS: NYSTATIN 100,000 UNITS/GM TOPICAL PWD 15 GM TOP SCH ×2 (08:41→20:17)
[2021-08-21] MEDS: VITAMIN D 1,000 INTERNATIONAL UNITS TABLET PO SCH (08:41)
[2021-08-21] MEDS: MUPIROCIN 2% OINT 22 GM TUBE TOP SCH (08:42)
[2021-08-21 08:43] VITALS: BP 118/57
[2021-08-21] MEDS: AMPICILLIN SOD/SULBACTAM SOD 3 GM in D5W MINI-BAG PLUS 100 ML IV SCH ×2 (12:44→18:35)
[2021-08-21] MEDS: ACETAMINOPHEN TAB 650MG DOSE (2X325MG) PO PRN (12:45)
[2021-08-21] MEDS: ONDANSETRON 4MG ORAL DISINTEGRATING TAB PO PRN ×2 (12:45→17:35)
[2021-08-21] MEDS: LACTOBACILLUS ACIDOPHILUS CAP (BACID) PO SCH (17:35)
[2021-08-21] MEDS ORDERED: CIPROFLOXACIN 500MG TABLET PO SCH (18:00)
[2021-08-21] MEDS: LEVEMIR (INSULIN DETEMIR) 1 UNITS/0.01ML SC SCH (20:17)
[2021-08-22] MEDS: AMPICILLIN SOD/SULBACTAM SOD 3 GM in D5W MINI-BAG PLUS 100 ML IV SCH ×2 (00:49→06:07)
[2021-08-22 04:25] VITALS: BP 109/59
[2021-08-22 06:12] LABS: HEMATOCRIT 31.4 % (42.0-52.0); HEMOGLOBIN 10.2 g/dl (13.5-17.5); MEAN CORPUSCULAR HEMOGLOBIN 28.7 pg (27.0-33.0); MEAN CORPUSCULAR HGB CONC 32.5 g/dl (32.0-36.5); MEAN CORPUSCULAR VOLUME 88.2 fl (80.0-96.0); PLATELET COUNT, AUTOMATED 216 10^3/uL (150-450); RED BLOOD COUNT 3.56 10^6/uL (4.30-6.10); WHITE BLOOD COUNT 8.9 10^3/uL (4.0-10.0)
[2021-08-22 06:42] LABS: ALBUMIN 1.8 GM/DL (3.2-5.2); BILIRUBIN,TOTAL 0.4 MG/DL (0.2-1.0); CALCIUM LEVEL 9.3 MG/DL (8.8-10.2); CREATININE FOR GFR 1.37 MG/DL (0.70-1.30); GLOMERULAR FILTRATION RATE 54.7 (>42); POTASSIUM SERUM 4.2 MEQ/L (3.5-5.1); TOTAL PROTEIN 6.3 GM/DL (6.4-8.2)
[2021-08-22] MEDS: INSULIN LISPRO (NovoLOG) PER UNIT SC SCH ×4 (07:43→20:34)
[2021-08-22] MEDS: ACETAMINOPHEN TAB 650MG DOSE (2X325MG) PO PRN ×2 (08:29→20:47)
[2021-08-22] MEDS: ONDANSETRON 4MG ORAL DISINTEGRATING TAB PO PRN (08:29)
[2021-08-22] MEDS: LACTOBACILLUS ACIDOPHILUS CAP (BACID) PO SCH ×2 (08:29→16:55)
[2021-08-22] MEDS: SENOKOT S TAB PO SCH ×2 (08:29→20:37)
[2021-08-22] MEDS: TAMSULOSIN 0.4 MG CAP PO SCH (08:30)
[2021-08-22] MEDS: ENOXAPARIN 40MG/0.4ML SYRINGE (J1650 PER 10MG) SC SCH (08:30)
[2021-08-22] MEDS: FINASTERIDE 5MG TAB PO SCH (08:30)
[2021-08-22] MEDS: VITAMIN D 1,000 INTERNATIONAL UNITS TABLET PO SCH (08:30)
[2021-08-22] MEDS: ASCORBIC ACID 500 MG TAB PO SCH (08:30)
[2021-08-22] MEDS: NYSTATIN 100,000 UNITS/GM TOPICAL PWD 15 GM TOP SCH ×2 (08:31→23:19)
[2021-08-22] MEDS ORDERED: TAMS1CAP17 PO (10:55)
[2021-08-22] MEDS ORDERED: SENN-80 PO (10:55)
[2021-08-22] MEDS ORDERED: FURO20TA2 PO (10:55)
[2021-08-22] MEDS ORDERED: DOCU100C16 PO (10:55)
[2021-08-22] MEDS ORDERED: CHOL50003 PO (10:55)
[2021-08-22] MEDS ORDERED: NYST10006 TOP (10:55)
[2021-08-22] MEDS ORDERED: GLIM2TAB29 PO (10:55)
[2021-08-22] MEDS ORDERED: VITA500T37 PO (10:55)
[2021-08-22] MEDS: LevoFLOXacin 750 MG TABLET PO SCH (11:01)
[2021-08-22] MEDS: MUPIROCIN 2% OINT 22 GM TUBE TOP SCH (12:37)
[2021-08-22 15:45] VITALS: BP 107/56
[2021-08-22 19:58] VITALS: BP 112/59
[2021-08-22] MEDS: LEVEMIR (INSULIN DETEMIR) 1 UNITS/0.01ML SC SCH (20:38)
[2021-08-23 05:44] VITALS: BP 110/54
[2021-08-23 06:30] LABS: HEMOGLOBIN 10.3 g/dl (13.5-17.5); MEAN CORPUSCULAR HEMOGLOBIN 28.5 pg (27.0-33.0); MEAN CORPUSCULAR HGB CONC 32.2 g/dl (32.0-36.5); MEAN CORPUSCULAR VOLUME 88.6 fl (80.0-96.0); PLATELET COUNT, AUTOMATED 224 10^3/uL (150-450); RED BLOOD COUNT 3.61 10^6/uL (4.30-6.10); WHITE BLOOD COUNT 7.9 10^3/uL (4.0-10.0)
[2021-08-23 06:57] LABS: ALBUMIN 1.7 GM/DL (3.2-5.2); ALT/SGPT 13 U/L (12-78); BILIRUBIN,TOTAL 0.4 MG/DL (0.2-1.0); BLOOD UREA NITROGEN 39 MG/DL (7-18); CALCIUM LEVEL 9.2 MG/DL (8.8-10.2); CARBON DIOXIDE LEVEL 31 MEQ/L (21-32); CHLORIDE LEVEL 111 MEQ/L (98-107); CREATININE FOR GFR 1.01 MG/DL (0.70-1.30); GLOMERULAR FILTRATION RATE > 60.0 (>42); GLUCOSE, FASTING 124 MG/DL (70-100); SODIUM LEVEL 146 MEQ/L (136-145); TOTAL PROTEIN 6.5 GM/DL (6.4-8.2)
[2021-08-23] MEDS: INSULIN LISPRO (NovoLOG) PER UNIT SC SCH ×4 (07:55→19:33)
[2021-08-23] MEDS: LACTOBACILLUS ACIDOPHILUS CAP (BACID) PO SCH ×2 (08:47→17:16)
[2021-08-23] MEDS: SENOKOT S TAB PO SCH ×2 (08:47→20:44)
[2021-08-23] MEDS: TAMSULOSIN 0.4 MG CAP PO SCH (08:47)
[2021-08-23] MEDS: LevoFLOXacin 750 MG TABLET PO SCH (08:48)
[2021-08-23] MEDS: ENOXAPARIN 40MG/0.4ML SYRINGE (J1650 PER 10MG) SC SCH (08:48)
[2021-08-23] MEDS: VITAMIN D 1,000 INTERNATIONAL UNITS TABLET PO SCH (08:48)
[2021-08-23] MEDS: ASCORBIC ACID 500 MG TAB PO SCH (08:48)
[2021-08-23] MEDS: FINASTERIDE 5MG TAB PO SCH (08:48)
[2021-08-23] MEDS: traMADol 50 MG TAB PO PRN ×2 (08:49→20:45)
[2021-08-23] MEDS: NYSTATIN 100,000 UNITS/GM TOPICAL PWD 15 GM TOP SCH ×2 (08:50→19:32)
[2021-08-23] MEDS: MUPIROCIN 2% OINT 22 GM TUBE TOP SCH (08:50)
[2021-08-23] MEDS: ONDANSETRON 4MG ORAL DISINTEGRATING TAB PO PRN (11:17)
[2021-08-23] MEDS: LEVEMIR (INSULIN DETEMIR) 1 UNITS/0.01ML SC SCH (20:44)
[2021-08-23] MEDS: ACETAMINOPHEN TAB 650MG DOSE (2X325MG) PO PRN (20:45)
[2021-08-24 06:00] VITALS: BP 108/56
[2021-08-24 06:47] LABS: HEMOGLOBIN 10.7 g/dl (13.5-17.5); MEAN CORPUSCULAR HEMOGLOBIN 28.5 pg (27.0-33.0); MEAN CORPUSCULAR HGB CONC 31.5 g/dl (32.0-36.5); MEAN CORPUSCULAR VOLUME 90.4 fl (80.0-96.0); PLATELET COUNT, AUTOMATED 202 10^3/uL (150-450); RED BLOOD COUNT 3.76 10^6/uL (4.30-6.10); WHITE BLOOD COUNT 7.4 10^3/uL (4.0-10.0)
[2021-08-24 07:20] LABS: ALBUMIN 1.8 GM/DL (3.2-5.2); ALT/SGPT 15 U/L (12-78); BILIRUBIN,TOTAL 0.3 MG/DL (0.2-1.0); BLOOD UREA NITROGEN 25 MG/DL (7-18); CALCIUM LEVEL 9.1 MG/DL (8.8-10.2); CARBON DIOXIDE LEVEL 34 MEQ/L (21-32); CHLORIDE LEVEL 109 MEQ/L (98-107); CREATININE FOR GFR 0.99 MG/DL (0.70-1.30); GLOMERULAR FILTRATION RATE > 60.0 (>42); GLUCOSE, FASTING 121 MG/DL (70-100); POTASSIUM SERUM 4.1 MEQ/L (3.5-5.1); SODIUM LEVEL 145 MEQ/L (136-145); TOTAL PROTEIN 6.4 GM/DL (6.4-8.2)
[2021-08-24] MEDS: VITAMIN D 1,000 INTERNATIONAL UNITS TABLET PO SCH (08:17)
[2021-08-24] MEDS: INSULIN LISPRO (NovoLOG) PER UNIT SC SCH ×4 (08:18→20:42)
[2021-08-24] MEDS: LACTOBACILLUS ACIDOPHILUS CAP (BACID) PO SCH ×2 (08:18→17:20)
[2021-08-24] MEDS: TAMSULOSIN 0.4 MG CAP PO SCH (08:18)
[2021-08-24] MEDS: SENOKOT S TAB PO SCH ×2 (08:18→20:41)
[2021-08-24] MEDS: ASCORBIC ACID 500 MG TAB PO SCH (08:18)
[2021-08-24] MEDS: FINASTERIDE 5MG TAB PO SCH (08:19)
[2021-08-24] MEDS: NYSTATIN 100,000 UNITS/GM TOPICAL PWD 15 GM TOP SCH ×2 (08:19→20:43)
[2021-08-24] MEDS: ENOXAPARIN 40MG/0.4ML SYRINGE (J1650 PER 10MG) SC SCH (08:19)
[2021-08-24] MEDS: MUPIROCIN 2% OINT 22 GM TUBE TOP SCH (08:19)
[2021-08-24] MEDS: traMADol 50 MG TAB PO PRN (09:25)
[2021-08-24] MEDS: LevoFLOXacin 750 MG TABLET PO SCH (10:27)
[2021-08-24] MEDS: LEVEMIR (INSULIN DETEMIR) 1 UNITS/0.01ML SC SCH (20:42)
[2021-08-24] MEDS: ACETAMINOPHEN TAB 650MG DOSE (2X325MG) PO PRN (20:42)
[2021-08-25 06:00] VITALS: BP 112/60
[2021-08-25] MEDS: INSULIN LISPRO (NovoLOG) PER UNIT SC SCH ×4 (07:30→20:32)
[2021-08-25] MEDS: ENOXAPARIN 40MG/0.4ML SYRINGE (J1650 PER 10MG) SC SCH (08:08)
[2021-08-25] MEDS: FINASTERIDE 5MG TAB PO SCH (08:08)
[2021-08-25] MEDS: LACTOBACILLUS ACIDOPHILUS CAP (BACID) PO SCH ×2 (08:09→17:00)
[2021-08-25] MEDS: TAMSULOSIN 0.4 MG CAP PO SCH (08:10)
[2021-08-25] MEDS: SENOKOT S TAB PO SCH ×2 (08:10→20:31)
[2021-08-25] MEDS: VITAMIN D 1,000 INTERNATIONAL UNITS TABLET PO SCH (08:10)
[2021-08-25] MEDS: NYSTATIN 100,000 UNITS/GM TOPICAL PWD 15 GM TOP SCH ×2 (08:11→20:30)
[2021-08-25] MEDS: ASCORBIC ACID 500 MG TAB PO SCH (08:11)
[2021-08-25] MEDS: MUPIROCIN 2% OINT 22 GM TUBE TOP SCH (08:12)
[2021-08-25] MEDS: LevoFLOXacin 750 MG TABLET PO SCH (10:42)
[2021-08-25] MEDS: traMADol 50 MG TAB PO PRN ×2 (14:27→20:31)
[2021-08-25 19:47] VITALS: BP 116/65
[2021-08-25] MEDS: LEVEMIR (INSULIN DETEMIR) 1 UNITS/0.01ML SC SCH (20:32)
[2021-08-26 05:36] VITALS: BP 117/67
[2021-08-26] MEDS: LACTOBACILLUS ACIDOPHILUS CAP (BACID) PO SCH ×2 (08:29→17:10)
[2021-08-26] MEDS: ASCORBIC ACID 500 MG TAB PO SCH (08:29)
[2021-08-26] MEDS: TAMSULOSIN 0.4 MG CAP PO SCH (08:29)
[2021-08-26] MEDS: MUPIROCIN 2% OINT 22 GM TUBE TOP SCH (08:30)
[2021-08-26] MEDS: NYSTATIN 100,000 UNITS/GM TOPICAL PWD 15 GM TOP SCH ×2 (08:30→21:27)
[2021-08-26] MEDS: ENOXAPARIN 40MG/0.4ML SYRINGE (J1650 PER 10MG) SC SCH (08:30)
[2021-08-26] MEDS: FINASTERIDE 5MG TAB PO SCH (08:30)
[2021-08-26] MEDS: INSULIN LISPRO (NovoLOG) PER UNIT SC SCH ×4 (08:31→21:00)
[2021-08-26] MEDS: VITAMIN D 1,000 INTERNATIONAL UNITS TABLET PO SCH (08:40)
[2021-08-26] MEDS: SENOKOT S TAB PO SCH ×2 (08:40→21:27)
[2021-08-26] MEDS: traMADol 50 MG TAB PO PRN ×2 (08:41→19:53)
[2021-08-26] MEDS: LevoFLOXacin 750 MG TABLET PO SCH (10:14)
[2021-08-26] MEDS: LEVEMIR (INSULIN DETEMIR) 1 UNITS/0.01ML SC SCH (21:27)
[2021-08-26 22:00] VITALS: BP 112/54
[2021-08-27 06:00] VITALS: BP 110/58
[2021-08-27] MEDS: INSULIN LISPRO (NovoLOG) PER UNIT SC SCH ×4 (08:17→20:31)
[2021-08-27] MEDS: SENOKOT S TAB PO SCH ×2 (08:18→20:30)
[2021-08-27] MEDS: LACTOBACILLUS ACIDOPHILUS CAP (BACID) PO SCH ×2 (08:18→17:27)
[2021-08-27] MEDS: TAMSULOSIN 0.4 MG CAP PO SCH (08:18)
[2021-08-27] MEDS: VITAMIN D 1,000 INTERNATIONAL UNITS TABLET PO SCH (08:18)
[2021-08-27] MEDS: ASCORBIC ACID 500 MG TAB PO SCH (08:18)
[2021-08-27] MEDS: FINASTERIDE 5MG TAB PO SCH (08:18)
[2021-08-27] MEDS: ENOXAPARIN 40MG/0.4ML SYRINGE (J1650 PER 10MG) SC SCH (08:19)
[2021-08-27] MEDS: NYSTATIN 100,000 UNITS/GM TOPICAL PWD 15 GM TOP SCH ×2 (08:19→20:32)
[2021-08-27] MEDS: MUPIROCIN 2% OINT 22 GM TUBE TOP SCH (08:20)
[2021-08-27] MEDS: traMADol 50 MG TAB PO PRN ×2 (08:21→20:31)
[2021-08-27] MEDS: LevoFLOXacin 750 MG TABLET PO SCH (11:00)
[2021-08-27] MEDS: MOM 30ML SUSPENSION UDC PO PRN (17:28)
[2021-08-27] MEDS: SIMETHICONE 80MG CHEW TAB PO PRN (20:30)
[2021-08-27] MEDS: LEVEMIR (INSULIN DETEMIR) 1 UNITS/0.01ML SC SCH (20:31)
[2021-08-28 06:00] VITALS: BP 111/55
[2021-08-28] MEDS: INSULIN LISPRO (NovoLOG) PER UNIT SC SCH ×4 (07:30→21:00)
[2021-08-28] MEDS: SENOKOT S TAB PO SCH ×2 (08:41→21:10)
[2021-08-28] MEDS: TAMSULOSIN 0.4 MG CAP PO SCH (08:41)
[2021-08-28] MEDS: VITAMIN D 1,000 INTERNATIONAL UNITS TABLET PO SCH (08:41)
[2021-08-28] MEDS: ASCORBIC ACID 500 MG TAB PO SCH (08:41)
[2021-08-28] MEDS: LACTOBACILLUS ACIDOPHILUS CAP (BACID) PO SCH ×2 (08:41→17:47)
[2021-08-28] MEDS: traMADol 50 MG TAB PO PRN ×2 (08:42→21:10)
[2021-08-28] MEDS: FINASTERIDE 5MG TAB PO SCH (08:42)
[2021-08-28] MEDS: MUPIROCIN 2% OINT 22 GM TUBE TOP SCH (08:43)
[2021-08-28] MEDS: NYSTATIN 100,000 UNITS/GM TOPICAL PWD 15 GM TOP SCH ×2 (08:44→21:32)
[2021-08-28] MEDS: ENOXAPARIN 40MG/0.4ML SYRINGE (J1650 PER 10MG) SC SCH (08:44)
[2021-08-28] MEDS: LevoFLOXacin 750 MG TABLET PO SCH (09:33)
[2021-08-28] MEDS: ONDANSETRON 4MG ORAL DISINTEGRATING TAB PO PRN (13:45)
[2021-08-28] MEDS: SIMETHICONE 80MG CHEW TAB PO PRN (14:37)
[2021-08-28] MEDS: LEVEMIR (INSULIN DETEMIR) 1 UNITS/0.01ML SC SCH (21:10)
[2021-08-29] VITALS (8 sets, daily range): BP systolic 104–114; BP diastolic 51–72
[2021-08-29] MEDS: INSULIN LISPRO (NovoLOG) PER UNIT SC SCH ×4 (07:30→21:00)
[2021-08-29] MEDS: LACTOBACILLUS ACIDOPHILUS CAP (BACID) PO SCH ×2 (08:00→17:08)
[2021-08-29] MEDS: SENOKOT S TAB PO SCH ×2 (09:00→20:45)
[2021-08-29] MEDS: ENOXAPARIN 40MG/0.4ML SYRINGE (J1650 PER 10MG) SC SCH (09:00)
[2021-08-29] MEDS ORDERED: LevoFLOXacin IV 750 MG in IV 1 EA IV ONE (09:15)
[2021-08-29] MEDS ORDERED: ISOVUE-300 61% 50ML VIAL As Ordered ONE (11:38)
[2021-08-29] MEDS ORDERED: oxyCODONE 5MG TAB PO PRN (12:30)
[2021-08-29] MEDS ORDERED: LR 1,000 ML IV SCH (12:30)
[2021-08-29] MEDS ORDERED: ONDANSETRON 4MG/2ML VIAL IV PRN (12:30)
[2021-08-29] MEDS ORDERED: fentaNYL 100 MCG/2 ML INJECTION IV PRN (12:30)
[2021-08-29] MEDS: TAMSULOSIN 0.4 MG CAP PO SCH (15:15)
[2021-08-29] MEDS: VITAMIN D 1,000 INTERNATIONAL UNITS TABLET PO SCH (15:15)
[2021-08-29] MEDS: FINASTERIDE 5MG TAB PO SCH (15:15)
[2021-08-29] MEDS: ASCORBIC ACID 500 MG TAB PO SCH (15:15)
[2021-08-29] MEDS: NYSTATIN 100,000 UNITS/GM TOPICAL PWD 15 GM TOP SCH ×2 (15:17→20:46)
[2021-08-29] MEDS: MUPIROCIN 2% OINT 22 GM TUBE TOP SCH (15:19)
[2021-08-29] MEDS: LEVEMIR (INSULIN DETEMIR) 1 UNITS/0.01ML SC SCH (20:45)
[2021-08-29] MEDS: traMADol 50 MG TAB PO PRN (20:45)
[2021-08-30 02:00] VITALS: BP 107/55
[2021-08-30 06:00] VITALS: BP 112/58
[2021-08-30] MEDS: TAMSULOSIN 0.4 MG CAP PO SCH (08:55)
[2021-08-30] MEDS: ENOXAPARIN 40MG/0.4ML SYRINGE (J1650 PER 10MG) SC SCH (08:55)
[2021-08-30] MEDS: VITAMIN D 1,000 INTERNATIONAL UNITS TABLET PO SCH (08:55)
[2021-08-30] MEDS: SENOKOT S TAB PO SCH ×2 (08:55→20:26)
[2021-08-30] MEDS: LevoFLOXacin 750 MG TABLET PO SCH (08:55)
[2021-08-30] MEDS: ASCORBIC ACID 500 MG TAB PO SCH (08:55)
[2021-08-30] MEDS: FINASTERIDE 5MG TAB PO SCH (08:55)
[2021-08-30] MEDS: LACTOBACILLUS ACIDOPHILUS CAP (BACID) PO SCH ×2 (08:55→17:30)
[2021-08-30] MEDS: INSULIN LISPRO (NovoLOG) PER UNIT SC SCH ×4 (08:57→20:26)
[2021-08-30] MEDS: NYSTATIN 100,000 UNITS/GM TOPICAL PWD 15 GM TOP SCH ×2 (08:58→20:27)
[2021-08-30] MEDS: MUPIROCIN 2% OINT 22 GM TUBE TOP SCH (08:58)
[2021-08-30] MEDS ORDERED: PERCOCET 5MG/325MG TAB PO ONE (09:10)
[2021-08-30] MEDS: traMADol 50 MG TAB PO PRN ×2 (09:26→15:18)
[2021-08-30 14:00] VITALS: BP 119/69
[2021-08-30] MEDS ORDERED: FUROSEMIDE 20 MG TAB PO ONE (14:00)
[2021-08-30] MEDS ORDERED: FUROSEMIDE 20 MG TAB PO SCH (17:00)
[2021-08-30] MEDS: ONDANSETRON 4MG ORAL DISINTEGRATING TAB PO PRN (17:31)
[2021-08-30] MEDS: LEVEMIR (INSULIN DETEMIR) 1 UNITS/0.01ML SC SCH (20:26)
[2021-08-30 22:00] VITALS: BP 104/64
[2021-08-31 06:00] VITALS: BP 105/60
[2021-08-31] MEDS: INSULIN LISPRO (NovoLOG) PER UNIT SC SCH ×4 (07:27→20:26)
[2021-08-31] MEDS: LACTOBACILLUS ACIDOPHILUS CAP (BACID) PO SCH ×2 (09:48→18:22)
[2021-08-31] MEDS: FUROSEMIDE 20 MG TAB PO SCH ×2 (09:48→17:00)
[2021-08-31] MEDS: VITAMIN D 1,000 INTERNATIONAL UNITS TABLET PO SCH (09:48)
[2021-08-31] MEDS: TAMSULOSIN 0.4 MG CAP PO SCH (09:48)
[2021-08-31 09:49] LABS: BASO % 0.4 % (0.0-1.0); EOS # 0.8 10^3/uL (0.0-0.5); EOS % 10.4 % (0.0-3.0); HEMATOCRIT 35.6 % (42.0-52.0); HEMOGLOBIN 11.4 g/dl (13.5-17.5); LYMPH # 1.7 10^3/uL (1.5-5.0); LYMPH % 22.6 % (24.0-44.0); MEAN CORPUSCULAR HEMOGLOBIN 28.8 pg (27.0-33.0); MEAN CORPUSCULAR VOLUME 89.9 fl (80.0-96.0); MONO # 0.6 10^3/uL (0.0-0.8); MONO % 8.3 % (2.0-8.0); NEUTROPHILS # 4.4 10^3/uL (1.5-8.5); NEUTROPHILS % 57.9 % (36.0-66.0); PLATELET COUNT, AUTOMATED 180 10^3/uL (150-450); RED BLOOD COUNT 3.96 10^6/uL (4.30-6.10); WHITE BLOOD COUNT 7.6 10^3/uL (4.0-10.0)
[2021-08-31] MEDS: ASCORBIC ACID 500 MG TAB PO SCH (09:49)
[2021-08-31] MEDS: LevoFLOXacin 750 MG TABLET PO SCH (09:49)
[2021-08-31] MEDS: NYSTATIN 100,000 UNITS/GM TOPICAL PWD 15 GM TOP SCH ×2 (09:49→20:30)
[2021-08-31] MEDS: FINASTERIDE 5MG TAB PO SCH (09:49)
[2021-08-31] MEDS: SENOKOT S TAB PO SCH ×2 (09:49→20:29)
[2021-08-31] MEDS: MUPIROCIN 2% OINT 22 GM TUBE TOP SCH (09:50)
[2021-08-31] MEDS: traMADol 50 MG TAB PO PRN (09:55)
[2021-08-31 10:15] LABS: ALT/SGPT 13 U/L (12-78); BILIRUBIN,TOTAL 0.4 MG/DL (0.2-1.0); BLOOD UREA NITROGEN 11 MG/DL (7-18); C REACTIVE PROTEIN QUANTITATIV 3.01 MG/DL (0.00-0.30); CALCIUM LEVEL 8.7 MG/DL (8.8-10.2); CARBON DIOXIDE LEVEL 31 MEQ/L (21-32); CHLORIDE LEVEL 107 MEQ/L (98-107); CREATININE FOR GFR 1.05 MG/DL (0.70-1.30); GLOMERULAR FILTRATION RATE > 60.0 (>42); GLUCOSE, FASTING 141 MG/DL (70-100); POTASSIUM SERUM 3.4 MEQ/L (3.5-5.1); SODIUM LEVEL 145 MEQ/L (136-145); TOTAL PROTEIN 6.2 GM/DL (6.4-8.2)
[2021-08-31 14:00] VITALS: BP 95/53
[2021-08-31] MEDS ORDERED: POTASSIUM CHLORIDE 10MEQ SR TABLET PO ONE (18:00)
[2021-08-31] MEDS: MIDODRINE 5 MG TAB PO SCH (18:21)
[2021-08-31] MEDS: LEVEMIR (INSULIN DETEMIR) 1 UNITS/0.01ML SC SCH (20:29)
[2021-08-31] MEDS: ACETAMINOPHEN TAB 650MG DOSE (2X325MG) PO PRN (20:29)
[2021-08-31 21:00] VITALS: O2SAT 95
[2021-09-01 06:31] LABS: BASO % 0.5 % (0.0-1.0); EOS # 1.1 10^3/uL (0.0-0.5); EOS % 14.2 % (0.0-3.0); HEMOGLOBIN 10.7 g/dl (13.5-17.5); LYMPH # 1.8 10^3/uL (1.5-5.0); LYMPH % 24.2 % (24.0-44.0); MEAN CORPUSCULAR HEMOGLOBIN 27.9 pg (27.0-33.0); MEAN CORPUSCULAR HGB CONC 31.5 g/dl (32.0-36.5); MEAN CORPUSCULAR VOLUME 88.5 fl (80.0-96.0); MONO # 0.7 10^3/uL (0.0-0.8); MONO % 9.3 % (2.0-8.0); NEUTROPHILS # 3.8 10^3/uL (1.5-8.5); PLATELET COUNT, AUTOMATED 169 10^3/uL (150-450); RED BLOOD COUNT 3.84 10^6/uL (4.30-6.10); WHITE BLOOD COUNT 7.4 10^3/uL (4.0-10.0)
[2021-09-01 07:01] LABS: BLOOD UREA NITROGEN 15 MG/DL (7-18); CALCIUM LEVEL 8.8 MG/DL (8.8-10.2); CARBON DIOXIDE LEVEL 26 MEQ/L (21-32); CHLORIDE LEVEL 110 MEQ/L (98-107); CREATININE FOR GFR 0.88 MG/DL (0.70-1.30); GLOMERULAR FILTRATION RATE > 60.0 (>42); GLUCOSE, FASTING 114 MG/DL (70-100); POTASSIUM SERUM 3.8 MEQ/L (3.5-5.1); SODIUM LEVEL 145 MEQ/L (136-145)
[2021-09-01] MEDS: INSULIN LISPRO (NovoLOG) PER UNIT SC SCH ×4 (07:30→21:00)
[2021-09-01] MEDS: FUROSEMIDE 20 MG TAB PO SCH ×2 (09:00→17:00)
[2021-09-01] MEDS: SIMETHICONE 80MG CHEW TAB PO PRN (09:11)
[2021-09-01] MEDS: MOM 30ML SUSPENSION UDC PO PRN (09:11)
[2021-09-01] MEDS: traMADol 50 MG TAB PO PRN (09:12)
[2021-09-01] MEDS: LACTOBACILLUS ACIDOPHILUS CAP (BACID) PO SCH ×2 (09:12→18:16)
[2021-09-01] MEDS: FINASTERIDE 5MG TAB PO SCH (09:13)
[2021-09-01] MEDS: ASCORBIC ACID 500 MG TAB PO SCH (09:13)
[2021-09-01] MEDS: VITAMIN D 1,000 INTERNATIONAL UNITS TABLET PO SCH (09:13)
[2021-09-01] MEDS: TAMSULOSIN 0.4 MG CAP PO SCH (09:13)
[2021-09-01] MEDS: SENOKOT S TAB PO SCH ×2 (09:13→21:04)
[2021-09-01] MEDS: POTASSIUM CHLORIDE 10MEQ SR TABLET PO SCH (09:14)
[2021-09-01] MEDS: MIDODRINE 5 MG TAB PO SCH ×3 (09:15→18:17)
[2021-09-01] MEDS: MUPIROCIN 2% OINT 22 GM TUBE TOP SCH (09:17)
[2021-09-01] MEDS: NYSTATIN 100,000 UNITS/GM TOPICAL PWD 15 GM TOP SCH ×2 (09:17→21:04)
[2021-09-01 13:00] VITALS: BP 111/49
[2021-09-01 18:00] VITALS: BP 107/49
[2021-09-01 21:00] VITALS: O2SAT 94
[2021-09-01] MEDS: ACETAMINOPHEN TAB 650MG DOSE (2X325MG) PO PRN (21:03)
[2021-09-01] MEDS: ENOXAPARIN 60MG/0.6ML SYRINGE (J1650 PER 10MG) SC SCH (21:03)
[2021-09-01] MEDS: LEVEMIR (INSULIN DETEMIR) 1 UNITS/0.01ML SC SCH (21:03)
[2021-09-02 05:53] VITALS: BP 108/63
[2021-09-02 06:01] LABS: BASO % 0.4 % (0.0-1.0); EOS # 1.1 10^3/uL (0.0-0.5); EOS % 15.8 % (0.0-3.0); HEMATOCRIT 33.8 % (42.0-52.0); HEMOGLOBIN 10.9 g/dl (13.5-17.5); LYMPH % 27.8 % (24.0-44.0); MEAN CORPUSCULAR HEMOGLOBIN 28.8 pg (27.0-33.0); MEAN CORPUSCULAR HGB CONC 32.2 g/dl (32.0-36.5); MEAN CORPUSCULAR VOLUME 89.4 fl (80.0-96.0); MONO # 0.7 10^3/uL (0.0-0.8); MONO % 9.4 % (2.0-8.0); NEUTROPHILS # 3.3 10^3/uL (1.5-8.5); NEUTROPHILS % 45.8 % (36.0-66.0); PLATELET COUNT, AUTOMATED 175 10^3/uL (150-450); RED BLOOD COUNT 3.78 10^6/uL (4.30-6.10); WHITE BLOOD COUNT 7.2 10^3/uL (4.0-10.0)
[2021-09-02 06:29] LABS: BLOOD UREA NITROGEN 14 MG/DL (7-18); CALCIUM LEVEL 8.9 MG/DL (8.8-10.2); CARBON DIOXIDE LEVEL 31 MEQ/L (21-32); CHLORIDE LEVEL 110 MEQ/L (98-107); CREATININE FOR GFR 0.87 MG/DL (0.70-1.30); GLOMERULAR FILTRATION RATE > 60.0 (>42); GLUCOSE, FASTING 110 MG/DL (70-100); POTASSIUM SERUM 4.1 MEQ/L (3.5-5.1); SODIUM LEVEL 145 MEQ/L (136-145)
[2021-09-02] MEDS: INSULIN LISPRO (NovoLOG) PER UNIT SC SCH ×4 (08:16→21:00)
[2021-09-02] MEDS: LACTOBACILLUS ACIDOPHILUS CAP (BACID) PO SCH ×2 (08:17→17:04)
[2021-09-02] MEDS: ENOXAPARIN 60MG/0.6ML SYRINGE (J1650 PER 10MG) SC SCH ×2 (08:17→20:38)
[2021-09-02] MEDS: SENOKOT S TAB PO SCH ×2 (08:17→20:37)
[2021-09-02] MEDS: FINASTERIDE 5MG TAB PO SCH (08:17)
[2021-09-02] MEDS: POTASSIUM CHLORIDE 10MEQ SR TABLET PO SCH (08:18)
[2021-09-02] MEDS: ASCORBIC ACID 500 MG TAB PO SCH (08:18)
[2021-09-02] MEDS: VITAMIN D 1,000 INTERNATIONAL UNITS TABLET PO SCH (08:18)
[2021-09-02] MEDS: TAMSULOSIN 0.4 MG CAP PO SCH (08:18)
[2021-09-02] MEDS: MIDODRINE 5 MG TAB PO SCH ×3 (08:18→17:05)
[2021-09-02] MEDS: NYSTATIN 100,000 UNITS/GM TOPICAL PWD 15 GM TOP SCH ×2 (08:19→20:39)
[2021-09-02] MEDS: FUROSEMIDE 20 MG TAB PO SCH ×2 (08:19→17:00)
[2021-09-02] MEDS: traMADol 50 MG TAB PO PRN (08:29)
[2021-09-02] MEDS: MUPIROCIN 2% OINT 22 GM TUBE TOP SCH (09:00)
[2021-09-02 12:11] VITALS: BP 110/64
[2021-09-02] MEDS: MOM 30ML SUSPENSION UDC PO PRN (12:24)
[2021-09-02] MEDS: SIMETHICONE 80MG CHEW TAB PO PRN (14:03)
[2021-09-02 20:00] VITALS: BP 122/76
[2021-09-02] MEDS: ACETAMINOPHEN TAB 650MG DOSE (2X325MG) PO PRN (20:38)
[2021-09-02] MEDS: LEVEMIR (INSULIN DETEMIR) 1 UNITS/0.01ML SC SCH (20:38)
[2021-09-03 06:00] VITALS: BP 119/73
[2021-09-03 06:03] LABS: BASO # 0.1 10^3/uL (0.0-0.2); BASO % 0.8 % (0.0-1.0); EOS # 1.3 10^3/uL (0.0-0.5); EOS % 16.5 % (0.0-3.0); HEMATOCRIT 35.5 % (42.0-52.0); HEMOGLOBIN 11.7 g/dl (13.5-17.5); LYMPH % 26.5 % (24.0-44.0); MEAN CORPUSCULAR HEMOGLOBIN 29.3 pg (27.0-33.0); MONO # 0.6 10^3/uL (0.0-0.8); MONO % 8.2 % (2.0-8.0); NEUTROPHILS # 3.6 10^3/uL (1.5-8.5); NEUTROPHILS % 47.5 % (36.0-66.0); PLATELET COUNT, AUTOMATED 188 10^3/uL (150-450); RED BLOOD COUNT 3.99 10^6/uL (4.30-6.10); WHITE BLOOD COUNT 7.7 10^3/uL (4.0-10.0)
[2021-09-03 06:28] LABS: BLOOD UREA NITROGEN 13 MG/DL (7-18); CALCIUM LEVEL 9.6 MG/DL (8.8-10.2); CARBON DIOXIDE LEVEL 30 MEQ/L (21-32); CHLORIDE LEVEL 110 MEQ/L (98-107); CREATININE FOR GFR 0.87 MG/DL (0.70-1.30); GLOMERULAR FILTRATION RATE > 60.0 (>42); GLUCOSE, FASTING 118 MG/DL (70-100); POTASSIUM SERUM 4.2 MEQ/L (3.5-5.1); SODIUM LEVEL 145 MEQ/L (136-145)
[2021-09-03 08:00] VITALS: BP 116/65
[2021-09-03] MEDS: INSULIN LISPRO (NovoLOG) PER UNIT SC SCH ×4 (08:18→20:42)
[2021-09-03] MEDS: NYSTATIN 100,000 UNITS/GM TOPICAL PWD 15 GM TOP SCH ×2 (08:19→20:52)
[2021-09-03] MEDS: ENOXAPARIN 60MG/0.6ML SYRINGE (J1650 PER 10MG) SC SCH ×2 (08:19→20:51)
[2021-09-03] MEDS: MOM 30ML SUSPENSION UDC PO PRN (08:19)
[2021-09-03] MEDS: MUPIROCIN 2% OINT 22 GM TUBE TOP SCH (08:19)
[2021-09-03] MEDS: ASCORBIC ACID 500 MG TAB PO SCH (08:20)
[2021-09-03] MEDS: POTASSIUM CHLORIDE 10MEQ SR TABLET PO SCH (08:20)
[2021-09-03] MEDS: FINASTERIDE 5MG TAB PO SCH (08:21)
[2021-09-03] MEDS: VITAMIN D 1,000 INTERNATIONAL UNITS TABLET PO SCH (08:21)
[2021-09-03] MEDS: traMADol 50 MG TAB PO PRN ×2 (08:21→20:52)
[2021-09-03] MEDS: SENOKOT S TAB PO SCH ×2 (08:21→20:52)
[2021-09-03] MEDS: LACTOBACILLUS ACIDOPHILUS CAP (BACID) PO SCH ×2 (08:21→17:07)
[2021-09-03] MEDS: TAMSULOSIN 0.4 MG CAP PO SCH (08:21)
[2021-09-03] MEDS: MIDODRINE 5 MG TAB PO SCH ×3 (08:22→17:07)
[2021-09-03] MEDS: FUROSEMIDE 20 MG TAB PO SCH ×2 (08:22→17:00)
[2021-09-03 17:01] VITALS: BP 102/54
[2021-09-03] MEDS: SIMETHICONE 80MG CHEW TAB PO PRN (17:07)
[2021-09-03 20:00] VITALS: BP 117/70
[2021-09-03] MEDS: LEVEMIR (INSULIN DETEMIR) 1 UNITS/0.01ML SC SCH (20:52)
[2021-09-04 05:55] LABS: BASO # 0.1 10^3/uL (0.0-0.2); BASO % 0.9 % (0.0-1.0); EOS # 1.2 10^3/uL (0.0-0.5); EOS % 14.5 % (0.0-3.0); HEMATOCRIT 36.2 % (42.0-52.0); HEMOGLOBIN 11.7 g/dl (13.5-17.5); LYMPH # 2.1 10^3/uL (1.5-5.0); LYMPH % 25.5 % (24.0-44.0); MEAN CORPUSCULAR HGB CONC 32.3 g/dl (32.0-36.5); MEAN CORPUSCULAR VOLUME 89.6 fl (80.0-96.0); MONO # 0.7 10^3/uL (0.0-0.8); MONO % 9.1 % (2.0-8.0); NEUTROPHILS % 49.3 % (36.0-66.0); PLATELET COUNT, AUTOMATED 204 10^3/uL (150-450); RED BLOOD COUNT 4.04 10^6/uL (4.30-6.10); WHITE BLOOD COUNT 8.1 10^3/uL (4.0-10.0)
[2021-09-04 06:00] VITALS: BP 101/62
[2021-09-04 06:14] LABS: BLOOD UREA NITROGEN 11 MG/DL (7-18); CALCIUM LEVEL 8.6 MG/DL (8.8-10.2); CARBON DIOXIDE LEVEL 30 MEQ/L (21-32); CHLORIDE LEVEL 109 MEQ/L (98-107); GLOMERULAR FILTRATION RATE > 60.0 (>42); GLUCOSE, FASTING 112 MG/DL (70-100); POTASSIUM SERUM 4.1 MEQ/L (3.5-5.1); SODIUM LEVEL 143 MEQ/L (136-145)
[2021-09-04 08:00] VITALS: BP 102/58
[2021-09-04] MEDS: INSULIN LISPRO (NovoLOG) PER UNIT SC SCH ×4 (08:24→21:00)
[2021-09-04] MEDS: MUPIROCIN 2% OINT 22 GM TUBE TOP SCH (08:24)
[2021-09-04] MEDS: NYSTATIN 100,000 UNITS/GM TOPICAL PWD 15 GM TOP SCH ×2 (08:24→21:47)
[2021-09-04] MEDS: ENOXAPARIN 60MG/0.6ML SYRINGE (J1650 PER 10MG) SC SCH ×2 (08:25→21:46)
[2021-09-04] MEDS: traMADol 50 MG TAB PO PRN ×2 (08:26→21:46)
[2021-09-04] MEDS: ASCORBIC ACID 500 MG TAB PO SCH (08:26)
[2021-09-04] MEDS: LACTOBACILLUS ACIDOPHILUS CAP (BACID) PO SCH ×2 (08:26→17:11)
[2021-09-04] MEDS: VITAMIN D 1,000 INTERNATIONAL UNITS TABLET PO SCH (08:26)
[2021-09-04] MEDS: TAMSULOSIN 0.4 MG CAP PO SCH (08:27)
[2021-09-04] MEDS: MIDODRINE 5 MG TAB PO SCH ×3 (08:27→17:11)
[2021-09-04] MEDS: SENOKOT S TAB PO SCH ×3 (08:27→21:46)
[2021-09-04] MEDS: FINASTERIDE 5MG TAB PO SCH (08:27)
[2021-09-04] MEDS: POTASSIUM CHLORIDE 10MEQ SR TABLET PO SCH (08:27)
[2021-09-04] MEDS: FUROSEMIDE 20 MG TAB PO SCH ×2 (08:28→17:00)
[2021-09-04 10:32] VITALS: BP 116/66
[2021-09-04] MEDS: SIMETHICONE 80MG CHEW TAB PO PRN (17:11)
[2021-09-04 18:08] LABS: Size 5x3 mm (.)
[2021-09-04] MEDS: LEVEMIR (INSULIN DETEMIR) 1 UNITS/0.01ML SC SCH (21:47)
[2021-09-05 06:00] VITALS: BP 125/62
[2021-09-05 06:07] LABS: BASO # 0.1 10^3/uL (0.0-0.2); BASO % 0.6 % (0.0-1.0); EOS # 1.2 10^3/uL (0.0-0.5); EOS % 13.3 % (0.0-3.0); HEMATOCRIT 36.7 % (42.0-52.0); HEMOGLOBIN 11.6 g/dl (13.5-17.5); LYMPH # 2.8 10^3/uL (1.5-5.0); LYMPH % 29.9 % (24.0-44.0); MEAN CORPUSCULAR HEMOGLOBIN 28.6 pg (27.0-33.0); MEAN CORPUSCULAR HGB CONC 31.6 g/dl (32.0-36.5); MEAN CORPUSCULAR VOLUME 90.6 fl (80.0-96.0); MONO # 0.8 10^3/uL (0.0-0.8); MONO % 8.8 % (2.0-8.0); NEUTROPHILS # 4.3 10^3/uL (1.5-8.5); NEUTROPHILS % 46.8 % (36.0-66.0); PLATELET COUNT, AUTOMATED 212 10^3/uL (150-450); RED BLOOD COUNT 4.05 10^6/uL (4.30-6.10); WHITE BLOOD COUNT 9.3 10^3/uL (4.0-10.0)
[2021-09-05 06:36] LABS: BLOOD UREA NITROGEN 10 MG/DL (7-18); CALCIUM LEVEL 8.8 MG/DL (8.8-10.2); CARBON DIOXIDE LEVEL 29 MEQ/L (21-32); CHLORIDE LEVEL 109 MEQ/L (98-107); CREATININE FOR GFR 0.88 MG/DL (0.70-1.30); GLOMERULAR FILTRATION RATE > 60.0 (>42); GLUCOSE, FASTING 115 MG/DL (70-100); POTASSIUM SERUM 4.3 MEQ/L (3.5-5.1); SODIUM LEVEL 144 MEQ/L (136-145)
[2021-09-05] MEDS: TORSEMIDE 20 MG TAB PO SCH ×2 (09:00→16:31)
[2021-09-05] MEDS: LACTOBACILLUS ACIDOPHILUS CAP (BACID) PO SCH ×2 (09:41→17:56)
[2021-09-05] MEDS: POTASSIUM CHLORIDE 10MEQ SR TABLET PO SCH (09:41)
[2021-09-05] MEDS: INSULIN LISPRO (NovoLOG) PER UNIT SC SCH ×4 (09:41→20:15)
[2021-09-05] MEDS: VITAMIN D 1,000 INTERNATIONAL UNITS TABLET PO SCH (09:42)
[2021-09-05] MEDS: NYSTATIN 100,000 UNITS/GM TOPICAL PWD 15 GM TOP SCH ×2 (09:42→20:17)
[2021-09-05] MEDS: MUPIROCIN 2% OINT 22 GM TUBE TOP SCH (09:42)
[2021-09-05] MEDS: ASCORBIC ACID 500 MG TAB PO SCH (09:42)
[2021-09-05] MEDS: TAMSULOSIN 0.4 MG CAP PO SCH (09:42)
[2021-09-05] MEDS: ENOXAPARIN 60MG/0.6ML SYRINGE (J1650 PER 10MG) SC SCH ×2 (09:43→20:16)
[2021-09-05] MEDS: FINASTERIDE 5MG TAB PO SCH (09:43)
[2021-09-05] MEDS: SENOKOT S TAB PO SCH ×2 (09:43→20:17)
[2021-09-05] MEDS: MIDODRINE 5 MG TAB PO SCH ×3 (09:57→16:32)
[2021-09-05] MEDS: traMADol 50 MG TAB PO PRN ×2 (10:08→20:18)
[2021-09-05] MEDS: SIMETHICONE 80MG CHEW TAB PO PRN (12:51)
[2021-09-05] MEDS: LEVEMIR (INSULIN DETEMIR) 1 UNITS/0.01ML SC SCH (20:16)
[2021-09-05 21:04] VITALS: BP 118/66
[2021-09-06 06:00] VITALS: BP 115/64
[2021-09-06 06:25] LABS: BASO # 0.1 10^3/uL (0.0-0.2); BASO % 0.6 % (0.0-1.0); EOS # 1.1 10^3/uL (0.0-0.5); EOS % 13.6 % (0.0-3.0); HEMATOCRIT 35.2 % (42.0-52.0); HEMOGLOBIN 11.6 g/dl (13.5-17.5); LYMPH # 2.2 10^3/uL (1.5-5.0); LYMPH % 26.8 % (24.0-44.0); MEAN CORPUSCULAR HEMOGLOBIN 29.8 pg (27.0-33.0); MEAN CORPUSCULAR VOLUME 90.5 fl (80.0-96.0); MONO # 0.7 10^3/uL (0.0-0.8); MONO % 9.2 % (2.0-8.0); NEUTROPHILS % 49.2 % (36.0-66.0); PLATELET COUNT, AUTOMATED 203 10^3/uL (150-450); RED BLOOD COUNT 3.89 10^6/uL (4.30-6.10); WHITE BLOOD COUNT 8.1 10^3/uL (4.0-10.0)
[2021-09-06 06:53] LABS: BLOOD UREA NITROGEN 11 MG/DL (7-18); CALCIUM LEVEL 9.5 MG/DL (8.8-10.2); CARBON DIOXIDE LEVEL 30 MEQ/L (21-32); CHLORIDE LEVEL 109 MEQ/L (98-107); CREATININE FOR GFR 0.88 MG/DL (0.70-1.30); GLOMERULAR FILTRATION RATE > 60.0 (>42); GLUCOSE, FASTING 116 MG/DL (70-100); POTASSIUM SERUM 3.6 MEQ/L (3.5-5.1); SODIUM LEVEL 145 MEQ/L (136-145)
[2021-09-06] MEDS: INSULIN LISPRO (NovoLOG) PER UNIT SC SCH ×5 (08:32→21:08)
[2021-09-06] MEDS: MIDODRINE 5 MG TAB PO SCH ×3 (08:33→16:11)
[2021-09-06] MEDS: ASCORBIC ACID 500 MG TAB PO SCH (08:33)
[2021-09-06] MEDS: FINASTERIDE 5MG TAB PO SCH (08:33)
[2021-09-06] MEDS: ENOXAPARIN 60MG/0.6ML SYRINGE (J1650 PER 10MG) SC SCH ×2 (08:33→21:07)
[2021-09-06] MEDS: LACTOBACILLUS ACIDOPHILUS CAP (BACID) PO SCH ×2 (08:33→17:41)
[2021-09-06] MEDS: SENOKOT S TAB PO SCH ×2 (08:33→21:06)
[2021-09-06] MEDS: SIMETHICONE 80MG CHEW TAB PO PRN ×3 (08:34→21:06)
[2021-09-06] MEDS: VITAMIN D 1,000 INTERNATIONAL UNITS TABLET PO SCH (08:34)
[2021-09-06] MEDS: POTASSIUM CHLORIDE 10MEQ SR TABLET PO SCH (08:34)
[2021-09-06] MEDS: TORSEMIDE 20 MG TAB PO SCH ×2 (08:34→17:42)
[2021-09-06] MEDS: TAMSULOSIN 0.4 MG CAP PO SCH (08:34)
[2021-09-06] MEDS: NYSTATIN 100,000 UNITS/GM TOPICAL PWD 15 GM TOP SCH ×2 (08:35→21:08)
[2021-09-06] MEDS: MUPIROCIN 2% OINT 22 GM TUBE TOP SCH (08:36)
[2021-09-06] MEDS: traMADol 50 MG TAB PO PRN ×2 (14:48→21:07)
[2021-09-06] MEDS: MOM 30ML SUSPENSION UDC PO PRN (21:07)
[2021-09-06] MEDS: LEVEMIR (INSULIN DETEMIR) 1 UNITS/0.01ML SC SCH (21:08)
[2021-09-07 06:00] VITALS: BP 108/65
[2021-09-07 06:10] LABS: BASO # 0.1 10^3/uL (0.0-0.2); BASO % 0.5 % (0.0-1.0); EOS % 10.6 % (0.0-3.0); HEMOGLOBIN 12.4 g/dl (13.5-17.5); LYMPH # 2.7 10^3/uL (1.5-5.0); MEAN CORPUSCULAR HEMOGLOBIN 28.4 pg (27.0-33.0); MEAN CORPUSCULAR HGB CONC 31.8 g/dl (32.0-36.5); MEAN CORPUSCULAR VOLUME 89.2 fl (80.0-96.0); MONO # 0.9 10^3/uL (0.0-0.8); MONO % 9.7 % (2.0-8.0); NEUTROPHILS # 4.6 10^3/uL (1.5-8.5); NEUTROPHILS % 49.7 % (36.0-66.0); PLATELET COUNT, AUTOMATED 237 10^3/uL (150-450); RED BLOOD COUNT 4.37 10^6/uL (4.30-6.10); WHITE BLOOD COUNT 9.2 10^3/uL (4.0-10.0)
[2021-09-07 06:42] LABS: BLOOD UREA NITROGEN 12 MG/DL (7-18); CARBON DIOXIDE LEVEL 33 MEQ/L (21-32); CHLORIDE LEVEL 102 MEQ/L (98-107); CREATININE FOR GFR 0.93 MG/DL (0.70-1.30); GLOMERULAR FILTRATION RATE > 60.0 (>42); GLUCOSE, FASTING 120 MG/DL (70-100); POTASSIUM SERUM 3.7 MEQ/L (3.5-5.1); SODIUM LEVEL 143 MEQ/L (136-145)
[2021-09-07] MEDS: SIMETHICONE 80MG CHEW TAB PO PRN ×2 (07:26→15:59)
[2021-09-07] MEDS: INSULIN LISPRO (NovoLOG) PER UNIT SC SCH ×4 (07:27→21:00)
[2021-09-07] MEDS: TORSEMIDE 20 MG TAB PO SCH ×2 (09:00→16:09)
[2021-09-07] MEDS ORDERED: ENOXAPARIN 40MG/0.4ML SYRINGE (J1650 PER 10MG) SC SCH (09:00)
[2021-09-07] MEDS: ENOXAPARIN 60MG/0.6ML SYRINGE (J1650 PER 10MG) SC SCH ×2 (09:16→21:11)
[2021-09-07] MEDS: MIDODRINE 5 MG TAB PO SCH ×3 (09:16→15:59)
[2021-09-07] MEDS: POTASSIUM CHLORIDE 10MEQ SR TABLET PO SCH (09:17)
[2021-09-07] MEDS: LACTOBACILLUS ACIDOPHILUS CAP (BACID) PO SCH ×2 (09:18→18:22)
[2021-09-07] MEDS: SENOKOT S TAB PO SCH ×2 (09:18→21:10)
[2021-09-07] MEDS: ASCORBIC ACID 500 MG TAB PO SCH (09:19)
[2021-09-07] MEDS: MUPIROCIN 2% OINT 22 GM TUBE TOP SCH (09:19)
[2021-09-07] MEDS: FINASTERIDE 5MG TAB PO SCH (09:20)
[2021-09-07] MEDS: VITAMIN D 1,000 INTERNATIONAL UNITS TABLET PO SCH (09:20)
[2021-09-07] MEDS: TAMSULOSIN 0.4 MG CAP PO SCH (09:20)
[2021-09-07] MEDS: NYSTATIN 100,000 UNITS/GM TOPICAL PWD 15 GM TOP SCH ×2 (09:21→21:12)
[2021-09-07] MEDS: traMADol 50 MG TAB PO PRN ×2 (10:31→21:17)
[2021-09-07] MEDS: LEVEMIR (INSULIN DETEMIR) 1 UNITS/0.01ML SC SCH (21:11)
[2021-09-07] MEDS: MOM 30ML SUSPENSION UDC PO PRN (21:11)
[2021-09-08 06:00] VITALS: BP 109/64
[2021-09-08] MEDS: POTASSIUM CHLORIDE 10MEQ SR TABLET PO SCH (07:55)
[2021-09-08] MEDS: INSULIN LISPRO (NovoLOG) PER UNIT SC SCH ×4 (07:56→21:00)
[2021-09-08] MEDS: VITAMIN D 1,000 INTERNATIONAL UNITS TABLET PO SCH (07:56)
[2021-09-08] MEDS: ASCORBIC ACID 500 MG TAB PO SCH (07:56)
[2021-09-08] MEDS: SENOKOT S TAB PO SCH ×2 (07:56→21:06)
[2021-09-08] MEDS: LACTOBACILLUS ACIDOPHILUS CAP (BACID) PO SCH ×2 (07:56→16:27)
[2021-09-08] MEDS: TAMSULOSIN 0.4 MG CAP PO SCH (07:56)
[2021-09-08] MEDS: TORSEMIDE 20 MG TAB PO SCH ×2 (07:56→16:28)
[2021-09-08] MEDS: MIDODRINE 5 MG TAB PO SCH ×3 (07:56→16:27)
[2021-09-08] MEDS: NYSTATIN 100,000 UNITS/GM TOPICAL PWD 15 GM TOP SCH ×2 (07:57→21:08)
[2021-09-08] MEDS: ENOXAPARIN 60MG/0.6ML SYRINGE (J1650 PER 10MG) SC SCH ×2 (07:57→21:07)
[2021-09-08] MEDS: FINASTERIDE 5MG TAB PO SCH (07:57)
[2021-09-08] MEDS: MUPIROCIN 2% OINT 22 GM TUBE TOP SCH (07:57)
[2021-09-08 08:00] VITALS: BP 110/65
[2021-09-08] MEDS: traMADol 50 MG TAB PO PRN ×2 (08:02→21:07)
[2021-09-08] MEDS: SIMETHICONE 80MG CHEW TAB PO PRN ×2 (09:03→21:12)
[2021-09-08 11:37] VITALS: BP 113/66
[2021-09-08 16:28] VITALS: BP 114/69
[2021-09-08] MEDS: LEVEMIR (INSULIN DETEMIR) 1 UNITS/0.01ML SC SCH (21:07)
[2021-09-09 06:00] VITALS: BP 113/64
[2021-09-09] MEDS: VITAMIN D 1,000 INTERNATIONAL UNITS TABLET PO SCH (09:32)
[2021-09-09] MEDS: ENOXAPARIN 60MG/0.6ML SYRINGE (J1650 PER 10MG) SC SCH ×2 (09:32→21:41)
[2021-09-09] MEDS: LACTOBACILLUS ACIDOPHILUS CAP (BACID) PO SCH ×2 (09:32→17:15)
[2021-09-09] MEDS: ASCORBIC ACID 500 MG TAB PO SCH (09:33)
[2021-09-09] MEDS: MIDODRINE 5 MG TAB PO SCH ×3 (09:33→15:14)
[2021-09-09] MEDS: POTASSIUM CHLORIDE 10MEQ SR TABLET PO SCH (09:34)
[2021-09-09] MEDS: TORSEMIDE 20 MG TAB PO SCH ×2 (09:34→17:15)
[2021-09-09] MEDS: SENOKOT S TAB PO SCH ×2 (09:35→21:40)
[2021-09-09] MEDS: TAMSULOSIN 0.4 MG CAP PO SCH (09:35)
[2021-09-09] MEDS: FINASTERIDE 5MG TAB PO SCH (09:35)
[2021-09-09] MEDS: INSULIN LISPRO (NovoLOG) PER UNIT SC SCH ×4 (09:35→21:00)
[2021-09-09] MEDS: traMADol 50 MG TAB PO PRN ×2 (09:36→21:43)
[2021-09-09] MEDS: NYSTATIN 100,000 UNITS/GM TOPICAL PWD 15 GM TOP SCH ×2 (09:36→21:42)
[2021-09-09] MEDS: MUPIROCIN 2% OINT 22 GM TUBE TOP SCH (09:37)
[2021-09-09] MEDS: SIMETHICONE 80MG CHEW TAB PO PRN ×3 (09:39→21:43)
[2021-09-09] MEDS: ONDANSETRON 4MG ORAL DISINTEGRATING TAB PO PRN (11:57)
[2021-09-09] MEDS: ACETAMINOPHEN TAB 650MG DOSE (2X325MG) PO PRN (15:14)
[2021-09-09] MEDS: LEVEMIR (INSULIN DETEMIR) 1 UNITS/0.01ML SC SCH (21:41)
[2021-09-10 06:00] VITALS: BP 106/61
[2021-09-10] MEDS: SIMETHICONE 80MG CHEW TAB PO PRN ×3 (08:49→23:19)
[2021-09-10] MEDS: ASCORBIC ACID 500 MG TAB PO SCH (08:49)
[2021-09-10] MEDS: traMADol 50 MG TAB PO PRN ×2 (08:49→22:12)
[2021-09-10] MEDS: VITAMIN D 1,000 INTERNATIONAL UNITS TABLET PO SCH (08:50)
[2021-09-10] MEDS: FINASTERIDE 5MG TAB PO SCH (08:50)
[2021-09-10] MEDS: LACTOBACILLUS ACIDOPHILUS CAP (BACID) PO SCH ×2 (08:50→17:17)
[2021-09-10] MEDS: TAMSULOSIN 0.4 MG CAP PO SCH (08:50)
[2021-09-10] MEDS: ENOXAPARIN 60MG/0.6ML SYRINGE (J1650 PER 10MG) SC SCH ×2 (08:51→22:07)
[2021-09-10] MEDS: MIDODRINE 5 MG TAB PO SCH ×3 (08:51→17:18)
[2021-09-10] MEDS: INSULIN LISPRO (NovoLOG) PER UNIT SC SCH ×4 (08:51→21:00)
[2021-09-10] MEDS: SENOKOT S TAB PO SCH ×2 (08:51→22:07)
[2021-09-10] MEDS: TORSEMIDE 20 MG TAB PO SCH ×2 (08:52→17:18)
[2021-09-10] MEDS: NYSTATIN 100,000 UNITS/GM TOPICAL PWD 15 GM TOP SCH ×2 (08:52→22:08)
[2021-09-10 08:53] VITALS: BP 105/59
[2021-09-10] MEDS: POTASSIUM CHLORIDE 10MEQ SR TABLET PO SCH (09:00)
[2021-09-10] MEDS: MUPIROCIN 2% OINT 22 GM TUBE TOP SCH (09:00)
[2021-09-10 10:29] LABS: BLOOD UREA NITROGEN 13 MG/DL (7-18); CALCIUM LEVEL 9.4 MG/DL (8.8-10.2); CARBON DIOXIDE LEVEL 32 MEQ/L (21-32); CHLORIDE LEVEL 102 MEQ/L (98-107); CREATININE FOR GFR 1.17 MG/DL (0.70-1.30); GLOMERULAR FILTRATION RATE > 60.0 (>42); GLUCOSE, FASTING 225 MG/DL (70-100); POTASSIUM SERUM 4.2 MEQ/L (3.5-5.1); SODIUM LEVEL 142 MEQ/L (136-145)
[2021-09-10 12:31] VITALS: BP 95/56
[2021-09-10] MEDS: ONDANSETRON 4MG ORAL DISINTEGRATING TAB PO PRN (12:31)
[2021-09-10] MEDS: MOM 30ML SUSPENSION UDC PO PRN (12:31)
[2021-09-10] MEDS: ACETAMINOPHEN TAB 650MG DOSE (2X325MG) PO PRN (17:17)
[2021-09-10] MEDS: LEVEMIR (INSULIN DETEMIR) 1 UNITS/0.01ML SC SCH (22:08)
[2021-09-11 06:00] VITALS: BP 110/63
[2021-09-11] MEDS: INSULIN LISPRO (NovoLOG) PER UNIT SC SCH ×4 (07:30→21:00)
[2021-09-11] MEDS: ENOXAPARIN 60MG/0.6ML SYRINGE (J1650 PER 10MG) SC SCH ×2 (08:26→21:46)
[2021-09-11] MEDS: POTASSIUM CHLORIDE 10MEQ SR TABLET PO SCH (08:26)
[2021-09-11] MEDS: FINASTERIDE 5MG TAB PO SCH (08:27)
[2021-09-11] MEDS: ASCORBIC ACID 500 MG TAB PO SCH (08:27)
[2021-09-11] MEDS: TAMSULOSIN 0.4 MG CAP PO SCH (08:27)
[2021-09-11] MEDS: SENOKOT S TAB PO SCH ×2 (08:28→21:46)
[2021-09-11] MEDS: MIDODRINE 5 MG TAB PO SCH ×3 (08:28→17:30)
[2021-09-11] MEDS: VITAMIN D 1,000 INTERNATIONAL UNITS TABLET PO SCH (08:29)
[2021-09-11] MEDS: TORSEMIDE 20 MG TAB PO SCH ×2 (08:29→17:00)
[2021-09-11] MEDS: LACTOBACILLUS ACIDOPHILUS CAP (BACID) PO SCH ×2 (08:29→17:29)
[2021-09-11] MEDS: NYSTATIN 100,000 UNITS/GM TOPICAL PWD 15 GM TOP SCH ×2 (08:30→21:46)
[2021-09-11] MEDS: MUPIROCIN 2% OINT 22 GM TUBE TOP SCH (08:36)
[2021-09-11] MEDS: SIMETHICONE 80MG CHEW TAB PO PRN ×3 (08:36→21:47)
[2021-09-11] MEDS: traMADol 50 MG TAB PO PRN ×2 (08:37→21:47)
[2021-09-11] MEDS: ONDANSETRON 4MG ORAL DISINTEGRATING TAB PO PRN (13:34)
[2021-09-11] MEDS: LEVEMIR (INSULIN DETEMIR) 1 UNITS/0.01ML SC SCH (21:45)
[2021-09-12 06:00] VITALS: BP 107/61
[2021-09-12] MEDS: NYSTATIN 100,000 UNITS/GM TOPICAL PWD 15 GM TOP SCH ×3 (09:00→21:00)
[2021-09-12] MEDS: ENOXAPARIN 60MG/0.6ML SYRINGE (J1650 PER 10MG) SC SCH ×2 (09:49→21:09)
[2021-09-12] MEDS: VITAMIN D 1,000 INTERNATIONAL UNITS TABLET PO SCH (09:49)
[2021-09-12] MEDS: LACTOBACILLUS ACIDOPHILUS CAP (BACID) PO SCH ×2 (09:49→17:55)
[2021-09-12] MEDS: TORSEMIDE 20 MG TAB PO SCH ×2 (09:50→17:00)
[2021-09-12] MEDS: traMADol 50 MG TAB PO PRN ×2 (09:50→17:55)
[2021-09-12] MEDS: TAMSULOSIN 0.4 MG CAP PO SCH (09:50)
[2021-09-12] MEDS: SENOKOT S TAB PO SCH ×2 (09:51→21:09)
[2021-09-12] MEDS: ASCORBIC ACID 500 MG TAB PO SCH (09:51)
[2021-09-12] MEDS: MIDODRINE 5 MG TAB PO SCH ×3 (09:51→16:12)
[2021-09-12] MEDS: POTASSIUM CHLORIDE 10MEQ SR TABLET PO SCH (09:51)
[2021-09-12] MEDS: FINASTERIDE 5MG TAB PO SCH (09:52)
[2021-09-12] MEDS: INSULIN LISPRO (NovoLOG) PER UNIT SC SCH ×4 (09:52→21:00)
[2021-09-12] MEDS: MUPIROCIN 2% OINT 22 GM TUBE TOP SCH (09:53)
[2021-09-12] MEDS: SIMETHICONE 80MG CHEW TAB PO PRN ×2 (10:02→17:55)
[2021-09-12] MEDS: LEVEMIR (INSULIN DETEMIR) 1 UNITS/0.01ML SC SCH (21:10)
[2021-09-13 06:00] VITALS: BP 109/60
[2021-09-13] MEDS: INSULIN LISPRO (NovoLOG) PER UNIT SC SCH ×4 (07:30→20:36)
[2021-09-13] MEDS: POTASSIUM CHLORIDE 10MEQ SR TABLET PO SCH (07:32)
[2021-09-13] MEDS: traMADol 50 MG TAB PO PRN ×2 (07:32→19:04)
[2021-09-13] MEDS: VITAMIN D 1,000 INTERNATIONAL UNITS TABLET PO SCH (07:33)
[2021-09-13] MEDS: SIMETHICONE 80MG CHEW TAB PO PRN ×3 (07:33→23:18)
[2021-09-13] MEDS: ASCORBIC ACID 500 MG TAB PO SCH (07:33)
[2021-09-13] MEDS: TAMSULOSIN 0.4 MG CAP PO SCH (07:33)
[2021-09-13] MEDS: FINASTERIDE 5MG TAB PO SCH (07:33)
[2021-09-13] MEDS: LACTOBACILLUS ACIDOPHILUS CAP (BACID) PO SCH ×2 (07:34→17:26)
[2021-09-13] MEDS: SENOKOT S TAB PO SCH ×2 (07:34→23:18)
[2021-09-13] MEDS: ENOXAPARIN 60MG/0.6ML SYRINGE (J1650 PER 10MG) SC SCH ×2 (07:35→23:18)
[2021-09-13] MEDS: MIDODRINE 5 MG TAB PO SCH ×3 (07:39→16:28)
[2021-09-13] MEDS: MUPIROCIN 2% OINT 22 GM TUBE TOP SCH (07:44)
[2021-09-13] MEDS: NYSTATIN 100,000 UNITS/GM TOPICAL PWD 15 GM TOP SCH ×2 (07:44→23:19)
[2021-09-13] MEDS: TORSEMIDE 20 MG TAB PO SCH ×2 (09:00→16:27)
[2021-09-13] MEDS: LEVEMIR (INSULIN DETEMIR) 1 UNITS/0.01ML SC SCH (23:19)
[2021-09-14 06:00] VITALS: BP 118/66
[2021-09-14] MEDS: INSULIN LISPRO (NovoLOG) PER UNIT SC SCH ×4 (08:49→21:00)
[2021-09-14] MEDS: FINASTERIDE 5MG TAB PO SCH (08:50)
[2021-09-14] MEDS: SIMETHICONE 80MG CHEW TAB PO PRN ×3 (08:50→21:59)
[2021-09-14] MEDS: SENOKOT S TAB PO SCH ×2 (08:50→21:59)
[2021-09-14] MEDS: TAMSULOSIN 0.4 MG CAP PO SCH (08:50)
[2021-09-14] MEDS: ENOXAPARIN 60MG/0.6ML SYRINGE (J1650 PER 10MG) SC SCH ×2 (08:50→21:59)
[2021-09-14] MEDS: VITAMIN D 1,000 INTERNATIONAL UNITS TABLET PO SCH (08:50)
[2021-09-14] MEDS: POTASSIUM CHLORIDE 10MEQ SR TABLET PO SCH (08:50)
[2021-09-14] MEDS: ASCORBIC ACID 500 MG TAB PO SCH (08:50)
[2021-09-14] MEDS: LACTOBACILLUS ACIDOPHILUS CAP (BACID) PO SCH ×2 (08:50→16:23)
[2021-09-14] MEDS: traMADol 50 MG TAB PO PRN ×2 (08:51→18:50)
[2021-09-14] MEDS: MIDODRINE 5 MG TAB PO SCH ×3 (08:52→16:24)
[2021-09-14] MEDS: TORSEMIDE 20 MG TAB PO SCH ×2 (08:53→16:24)
[2021-09-14] MEDS: MUPIROCIN 2% OINT 22 GM TUBE TOP SCH (08:53)
[2021-09-14] MEDS: NYSTATIN 100,000 UNITS/GM TOPICAL PWD 15 GM TOP SCH ×2 (08:54→22:00)
[2021-09-14] MEDS: MOM 30ML SUSPENSION UDC PO PRN (18:50)
[2021-09-14] MEDS: LEVEMIR (INSULIN DETEMIR) 1 UNITS/0.01ML SC SCH (21:59)
[2021-09-14] MEDS: ACETAMINOPHEN TAB 650MG DOSE (2X325MG) PO PRN (22:00)
[2021-09-15 06:00] VITALS: BP 118/73
[2021-09-15] MEDS: INSULIN LISPRO (NovoLOG) PER UNIT SC SCH ×2 (08:03→12:00)
[2021-09-15] MEDS: FINASTERIDE 5MG TAB PO SCH (08:03)
[2021-09-15] MEDS: ASCORBIC ACID 500 MG TAB PO SCH (08:04)
[2021-09-15] MEDS: TAMSULOSIN 0.4 MG CAP PO SCH (08:04)
[2021-09-15] MEDS: VITAMIN D 1,000 INTERNATIONAL UNITS TABLET PO SCH (08:04)
[2021-09-15] MEDS: POTASSIUM CHLORIDE 10MEQ SR TABLET PO SCH (08:04)
[2021-09-15] MEDS: SENOKOT S TAB PO SCH (08:04)
[2021-09-15] MEDS: LACTOBACILLUS ACIDOPHILUS CAP (BACID) PO SCH (08:04)
[2021-09-15] MEDS: TORSEMIDE 20 MG TAB PO SCH (08:05)
[2021-09-15] MEDS: MIDODRINE 5 MG TAB PO SCH ×2 (08:05→12:50)
[2021-09-15] MEDS: ENOXAPARIN 60MG/0.6ML SYRINGE (J1650 PER 10MG) SC SCH (08:08)
[2021-09-15] MEDS: NYSTATIN 100,000 UNITS/GM TOPICAL PWD 15 GM TOP SCH (08:09)
[2021-09-15] MEDS: MUPIROCIN 2% OINT 22 GM TUBE TOP SCH (08:09)
[2021-09-15] MEDS: SIMETHICONE 80MG CHEW TAB PO PRN (08:19)
[2021-09-15] MEDS: traMADol 50 MG TAB PO PRN (08:20)
[2021-09-15] MEDS ORDERED: FLOM0.4C39 PO (11:59)
[2021-09-15] MEDS ORDERED: POTA-151 PO (11:59)
[2021-09-15] MEDS ORDERED: TORS20TA2 PO (11:59)
[2021-09-15] MEDS ORDERED: MIDO5TA PO (11:59)
== END 2021-09-15 13:40 | disposition home health service (06) | DRG 177 ==
LOC: M ED 13:43 → M ED INP 16:37 → ENRESERV 16:50 → M 4MAIN 17:35 → M MS5PR 08-22 15:50
PROVIDERS: ADMIT Internal Medicine; ATTEND Internal Medicine
PROC: XW033E5 Introduction of Remdesivir Anti-infective into Peripheral Vein, Percutaneous Approach, New Technology Group 5 (ICD-10-PCS; 2021-08-09)
PROC: 3E0333Z Introduction of Anti-inflammatory into Peripheral Vein, Percutaneous Approach (ICD-10-PCS; 2021-08-09)
PROC: 0T29X0Z Change Drainage Device in Ureter, External Approach (ICD-10-PCS; 2021-08-29)
PROC: 0TC78ZZ Extirpation of Matter from Left Ureter, Via Natural or Artificial Opening Endoscopic (ICD-10-PCS; 2021-08-29)
PROC: 0TC08ZZ Extirpation of Matter from Right Kidney, Via Natural or Artificial Opening Endoscopic (ICD-10-PCS; principal; 2021-08-29 09:15)
DX: U07.1 COVID-19 (principal); J15.9 Unspecified bacterial pneumonia; J96.01 Acute respiratory failure with hypoxia; I50.33 Acute on chronic diastolic (congestive) heart failure; J12.82 Pneumonia due to coronavirus disease 2019; N39.0 Urinary tract infection, site not specified; J98.11 Atelectasis; Z68.43 Body mass index [BMI] 50.0-59.9, adult; N17.9 Acute kidney failure, unspecified; N13.2 Hydronephrosis with renal and ureteral calculous obstruction; N39.3 Stress incontinence (female) (male); B96.4 Proteus (mirabilis) (morganii) as the cause of diseases classified elsewhere; B37.2 Candidiasis of skin and nail; R53.1 Weakness; B95.2 Enterococcus as the cause of diseases classified elsewhere; N40.1 Benign prostatic hyperplasia with lower urinary tract symptoms; E11.9 Type 2 diabetes mellitus without complications; E66.9 Obesity, unspecified; Z79.84 Long term (current) use of oral hypoglycemic drugs; Z79.899 Other long term (current) drug therapy; Z79.1 Long term (current) use of non-steroidal anti-inflammatories (NSAID); Z88.7 Allergy status to serum and vaccine

== ENCOUNTER → 2021-08-29 | Outpatient (CLI) | payer MEDICARE ==
[~2021-08-29] MED LIST changes: +ACETAMINOPHEN 1000MG 100ML IV BTL (OFIRMEV) (J0131 PER 10MG) As Ordered ONE; +BISA10SU27 PR; +CHOL50003 PO; +DOCU100C16 PO; -ENOXAPARIN 60MG/0.6ML SYRINGE (J1650 PER 10MG) SC SCH; +FURO20TA2 PO; +FUROSEMIDE 100MG/10ML VIAL (J1940) As Ordered ONE; +GLIM2TAB29 PO; +ISOVUE-300 61% 50ML VIAL As Ordered ONE; +LIDOCAINE 2% 100MG/5ML SDV (FOR ANES.) As Ordered ONE; +LIDOCAINE 5% OINT 30GM TUBE As Ordered ONE; +LevoFLOXacin 500MG/100ML IV BAG (J1956 PER 250MG) As Ordered ONE; +MIDAZOLAM INJ 2MG/2ML VIAL (J2250 PER 1MG) As Ordered ONE; +ONDANSETRON 4MG/2ML VIAL As Ordered ONE; +PHENYLephrine 500MCG 5ML (100MCG/ML) SYRINGE As Ordered ONE; +POLY1POW38 PO; +ROCURONIUM BROMIDE 50 MG/5 ML VIAL As Ordered ONE; +SENN-80 PO; +SEVOFLURANE INHAL SOLN 250 ML BTL As Ordered ONE; +SUGAMMADEX SODIUM 500 MG/5 ML VIAL (BRIDION) As Ordered ONE; +TAMS1CAP17 PO; +VITA500T37 PO; +dexameTHASONE 4 MG/ML 1ML VIAL (J1100 PER 1MG) As Ordered ONE; +ePHEDrine SULFATE 25 MG/5 ML(5MG/ML) SYRINGE As Ordered ONE; +fentaNYL 250 MCG/5 ML INJECTION As Ordered ONE; +propofoL 200 MG/20 ML VIAL As Ordered ONE
== END ==
LOC: M RAD 06:45 → EDSTATUS 09:15
PROVIDERS: ATTEND Urology
DX: N20.0 Calculus of kidney (principal)
CPT/HCPCS: 74420; J0131; J1100; J1940; J1956; J2250; J2370; J2405; J3010

== ENCOUNTER → 2021-10-07 | Outpatient (REF) | payer MEDICARE ==
[~2021-10-07] MED LIST changes: -ACETAMINOPHEN 1000MG 100ML IV BTL (OFIRMEV) (J0131 PER 10MG) As Ordered ONE; -FUROSEMIDE 100MG/10ML VIAL (J1940) As Ordered ONE; -ISOVUE-300 61% 50ML VIAL As Ordered ONE; -LIDOCAINE 2% 100MG/5ML SDV (FOR ANES.) As Ordered ONE; -LIDOCAINE 5% OINT 30GM TUBE As Ordered ONE; -LevoFLOXacin 500MG/100ML IV BAG (J1956 PER 250MG) As Ordered ONE; -MIDAZOLAM INJ 2MG/2ML VIAL (J2250 PER 1MG) As Ordered ONE; +MIDO5TA PO; -ONDANSETRON 4MG/2ML VIAL As Ordered ONE; -PHENYLephrine 500MCG 5ML (100MCG/ML) SYRINGE As Ordered ONE; +POTA-151 PO; -ROCURONIUM BROMIDE 50 MG/5 ML VIAL As Ordered ONE; -SEVOFLURANE INHAL SOLN 250 ML BTL As Ordered ONE; -SUGAMMADEX SODIUM 500 MG/5 ML VIAL (BRIDION) As Ordered ONE; +TORS20TA2 PO; -dexameTHASONE 4 MG/ML 1ML VIAL (J1100 PER 1MG) As Ordered ONE; -ePHEDrine SULFATE 25 MG/5 ML(5MG/ML) SYRINGE As Ordered ONE; -fentaNYL 250 MCG/5 ML INJECTION As Ordered ONE; -propofoL 200 MG/20 ML VIAL As Ordered ONE
[2021-10-07 12:53] LABS: MEAN CORPUSCULAR HEMOGLOBIN 29.5 pg (27.0-33.0); MEAN CORPUSCULAR HGB CONC 32.5 g/dl (32.0-36.5); MEAN CORPUSCULAR VOLUME 90.7 fl (80.0-96.0); PLATELET COUNT, AUTOMATED 245 10^3/uL (150-450); RED BLOOD COUNT 4.41 10^6/uL (4.30-6.10); WHITE BLOOD COUNT 8.5 10^3/uL (4.0-10.0)
[2021-10-07 13:13] LABS: HEMOGLOBIN A1c 5.6 %
[2021-10-07 13:41] LABS: ALBUMIN 2.7 GM/DL (3.2-5.2); ALT/SGPT 11 U/L (12-78); BILIRUBIN,TOTAL 0.7 MG/DL (0.2-1.0); BLOOD UREA NITROGEN 15 MG/DL (7-18); CALCIUM LEVEL 9.6 MG/DL (8.8-10.2); CARBON DIOXIDE LEVEL 30 MEQ/L (21-32); CHLORIDE LEVEL 102 MEQ/L (98-107); CHOLESTEROL LEVEL 191 MG/DL (<200); CHOLESTEROL RISK RATIO 3.237 (<5); CREATININE FOR GFR 0.72 MG/DL (0.70-1.30); FREE T4 0.83 NG/DL (0.76-1.46); GLOMERULAR FILTRATION RATE > 60.0 (>42); GLUCOSE, FASTING 138 MG/DL (70-100); HDL CHOLESTEROL 59 MG/DL (>40); LDL CHOLESTEROL 109 MG/DL (<100); NON-HDL-C 132 MG/DL; POTASSIUM SERUM 3.7 MEQ/L (3.5-5.1); SODIUM LEVEL 141 MEQ/L (136-145); TRIGLYCERIDES LEVEL 114 MG/DL (<150)
[2021-10-07 14:10] LABS: VITAMIN B12 LEVEL 366 PG/ML (247-911)
[2021-10-07 14:11] LABS: FOLATE 8.2 NG/ML (>5.4)
== END ==
LOC: M SFHCADAM 09:37
PROVIDERS: ATTEND Family Medicine
DX: E78.5 Hyperlipidemia, unspecified (principal); E11.65 Type 2 diabetes mellitus with hyperglycemia; E53.8 Deficiency of other specified B group vitamins; Z86.19 Personal history of other infectious and parasitic diseases

== ENCOUNTER 2022-03-16 09:40 | Inpatient (IN) | payer MEDICARE ==
[~2022-03-16] VITALS: Ht 167.6 cm; Wt 158.6 kg
[2022-03-16] VITALS (8 sets, daily range): BP systolic 100–137; BP diastolic 56–95
[~2022-03-16 09:40] MED LIST changes: +FUROSEMIDE 20MG/2ML VIAL IV SCH
[2022-03-16] MEDS ORDERED: ALBUTEROL SULFATE 2.5MG/0.5ML INH NEB SOLN INH ONE (09:50)
[2022-03-16] MEDS ORDERED: IPRATROPIUM 0.5MG/ALBUTEROL 2.5MG INH SOL UD 3ML (DUONEB) NEB ONE (09:50)
[2022-03-16] MEDS ORDERED: methylPREDNISolone 125MG 2ML VIAL IV ONE (09:50)
[2022-03-16] MEDS ORDERED: PIPERACILLIN/TAZOBACTAM SOD 4.5 GM in D5W MINI-BAG PLUS 50 ML IV ONE (09:55)
[2022-03-16] MEDS ORDERED: NS 500 ML IV ONE ×3 (10:10→11:30)
[2022-03-16] MEDS ORDERED: ISOVUE-370 76% 100ML VIAL As Ordered ONE (10:26)
[2022-03-16 10:28] LABS: BASO # 0.1 10^3/uL (0.0-0.2); BASO % 0.7 % (0.0-1.0); EOS % 0.1 % (0.0-3.0); HEMOGLOBIN 13.7 g/dl (13.5-17.5); LYMPH # 1.5 10^3/uL (1.5-5.0); MEAN CORPUSCULAR HEMOGLOBIN 24.8 pg (27.0-33.0); MEAN CORPUSCULAR HGB CONC 29.1 g/dl (32.0-36.5); MONO % 9.7 % (2.0-8.0); NEUTROPHILS # 14.4 10^3/uL (1.5-8.5); PLATELET COUNT, AUTOMATED 317 10^3/uL (150-450); RED BLOOD COUNT 5.53 10^6/uL (4.30-6.10); WHITE BLOOD COUNT 18.3 10^3/uL (4.0-10.0)
[2022-03-16 10:40] LABS: INR 1.16
[2022-03-16 10:41] LABS: PARTIAL THROMBOPLASTIN TIME 26.4 SECONDS (24.8-34.2)
[2022-03-16 10:53] LABS: LIPASE 69 U/L (12-53)
[2022-03-16 10:54] LABS: MAGNESIUM LEVEL 2.4 MG/DL (1.8-2.4)
[2022-03-16 10:55] LABS: ALBUMIN 2.7 G/DL (3.2-5.2); ALKALINE PHOSPHATASE 138 U/L (46-116); ALT/SGPT 41 U/L (7.0-40); AMYLASE 91 U/L (30-118); AST/SGOT 64 U/L (<34); BILIRUBIN,DIRECT 0.4 MG/DL (<0.4); BILIRUBIN,TOTAL 0.7 MG/DL (0.3-1.2); BLOOD UREA NITROGEN 40 MG/DL (9-23); CARBON DIOXIDE LEVEL 40 MMOL/L (20-31); CHLORIDE LEVEL 95 MMOL/L (98-107); CK-MB VALUE MASS 2.5 NG/ML (<3.6); CREATININE FOR GFR 0.97 MG/DL (0.70-1.30); GLOMERULAR FILTRATION RATE > 60.0 (>42); GLUCOSE, FASTING 121 MG/DL (74-106); MONO # 1.8 10^3/uL (0.0-0.8); POTASSIUM SERUM 4.8 MMOL/L (3.5-5.1); SODIUM LEVEL 140 MMOL/L (136-145); TOTAL PROTEIN 7.7 G/DL (5.7-8.2)
[2022-03-16 10:56] LABS: CPK CREATINE PHOSPHOKINASE 553 U/L (46-171); MB/CK RELATIVE INDEX 0.45 (< OR =4)
[2022-03-16 10:58] LABS: THYROID STIMULATING HORMONE 1.535 uIU/ML (0.55-4.78)
[2022-03-16] MEDS ORDERED: POTA1TAB14 PO (12:00)
[2022-03-16] MEDS ORDERED: ZINC220CA PO (12:00)
[2022-03-16] MEDS ORDERED: SIME125C4 PO (12:00)
[2022-03-16] MEDS ORDERED: CINN500C2 PO (12:00)
[2022-03-16] MEDS ORDERED: FURO20TA2 PO (12:00)
[2022-03-16] MEDS ORDERED: ADVI200T PO (12:00)
[2022-03-16] MEDS ORDERED: GARL500C2 PO (12:00)
[2022-03-16] MEDS ORDERED: HOME MED LIST COMPLETE! XX SCH (12:05)
[2022-03-16] MEDS ORDERED: GLUCAGON INJ 1MG VIAL SC PRN (14:35)
[2022-03-16] MEDS ORDERED: GLUCOSE 4GM CHEW TABLET PO PRN (14:35)
[2022-03-16] MEDS ORDERED: DEXTROSE 50% 50ML SYRINGE IV PRN (14:35)
[2022-03-16] MEDS: PANTOPRAZOLE 40MG VIAL IV SCH (15:00)
[2022-03-16] MEDS: IPRATROPIUM 0.5MG/ALBUTEROL 2.5MG INH SOL UD 3ML (DUONEB) NEB SCH ×2 (15:01→19:53)
[2022-03-16 15:13] LABS: ABG BASE EXCESS 7.6 (-2.0-2.0); ABG HCO3 35.1 MEQ/L (22.0-26.0); ABG O2 SATURATION 94.8 % (95.0-99.0); ABG PARTIAL PRESSURE O2 78.1 mmHg (75.0-100.0); ABG STANDARD HCO3 31.4 MEQ/L (22.0-26.0); ABG pH (ARTERIAL) 7.367 UNITS (7.350-7.450)
[2022-03-16 15:14] LABS: ABG PARTIAL PRESSURE CO2 62.5 mmHg (35.0-45.0)
[2022-03-16] MEDS: AZITHROMYCIN INJ 500 MG, VIAL MATE ADAPTER 1 EACH in NS 250 ML IV SCH (15:30)
[2022-03-16] MEDS ORDERED: VANCOMYCIN HCL 1,000 MG, VIAL MATE ADAPTER 1 EACH in NS 250 ML IV ONE ×2 (16:00→17:00)
[2022-03-16] MEDS: INSULIN LISPRO (NovoLOG) PER UNIT SC SCH ×2 (17:30→20:04)
[2022-03-16] MEDS: PIPERACILLIN/TAZOBACTAM SOD 3.375 GM in D5W MINI-BAG PLUS 50 ML IV SCH (19:03)
[2022-03-16] MEDS: ENOXAPARIN 40MG/0.4ML SYRINGE (J1650 PER 10MG) SC SCH (20:05)
[2022-03-16] MEDS ORDERED: FLUID PLACE HOLDER IV SCH (21:00)
[2022-03-16] MEDS ORDERED: VANCOMYCIN HCL IV SCH (21:00)
[2022-03-17] VITALS (17 sets, daily range): BP systolic 99–124; BP diastolic 50–72
[2022-03-17] MEDS: PIPERACILLIN/TAZOBACTAM SOD 3.375 GM in D5W MINI-BAG PLUS 50 ML IV SCH ×5 (00:21→23:25)
[2022-03-17] MEDS: VANCOMYCIN HCL 1,000 MG, VIAL MATE ADAPTER 1 EACH in D5W 250 ML IV SCH ×2 (04:16→16:32)
[2022-03-17 05:09] LABS: HEMATOCRIT 37.4 % (42.0-52.0); MEAN CORPUSCULAR HEMOGLOBIN 24.9 pg (27.0-33.0); MEAN CORPUSCULAR HGB CONC 30.7 g/dl (32.0-36.5); PLATELET COUNT, AUTOMATED 246 10^3/uL (150-450); RED BLOOD COUNT 4.62 10^6/uL (4.30-6.10)
[2022-03-17 05:11] LABS: HEMOGLOBIN 11.5 g/dl (13.5-17.5)
[2022-03-17 05:34] LABS: ALBUMIN 2.1 G/DL (3.2-5.2); ALKALINE PHOSPHATASE 96 U/L (46-116); ALT/SGPT 27 U/L (7.0-40); AST/SGOT 32 U/L (<34); BILIRUBIN,TOTAL 0.8 MG/DL (0.3-1.2); BLOOD UREA NITROGEN 39 MG/DL (9-23); CALCIUM LEVEL 8.4 MG/DL (8.3-10.6); CARBON DIOXIDE LEVEL 35 MMOL/L (20-31); CHLORIDE LEVEL 101 MMOL/L (98-107); CREATININE FOR GFR 0.85 MG/DL (0.70-1.30); GLOMERULAR FILTRATION RATE > 60.0 (>42); GLUCOSE, FASTING 166 MG/DL (74-106); POTASSIUM SERUM 3.7 MMOL/L (3.5-5.1); SODIUM LEVEL 143 MMOL/L (136-145)
[2022-03-17 06:01] LABS: ABG BASE EXCESS 8.9 (-2.0-2.0); ABG HCO3 32.4 MEQ/L (22.0-26.0); ABG O2 SATURATION 97.5 % (95.0-99.0); ABG STANDARD HCO3 32.7 MEQ/L (22.0-26.0); ABG TOTAL CO2 33.6 MEQ/L (23.0-31.0); ABG pH (ARTERIAL) 7.526 UNITS (7.350-7.450)
[2022-03-17] MEDS ORDERED: NS 250 ML IV ONE (06:05)
[2022-03-17] MEDS: IPRATROPIUM 0.5MG/ALBUTEROL 2.5MG INH SOL UD 3ML (DUONEB) NEB SCH ×4 (08:05→19:54)
[2022-03-17] MEDS ORDERED: FUROSEMIDE 20MG/2ML VIAL IV SCH (09:00)
[2022-03-17] MEDS: PANTOPRAZOLE 40MG VIAL IV SCH (10:06)
[2022-03-17] MEDS: INSULIN LISPRO (NovoLOG) PER UNIT SC SCH ×4 (10:06→20:41)
[2022-03-17] MEDS ORDERED: ACETAMINOPHEN TAB 650MG DOSE (2X325MG) PO ONE (13:35)
[2022-03-17] MEDS: AZITHROMYCIN INJ 500 MG, VIAL MATE ADAPTER 1 EACH in NS 250 ML IV SCH (15:07)
[2022-03-17] MEDS: ENOXAPARIN 40MG/0.4ML SYRINGE (J1650 PER 10MG) SC SCH (20:43)
[2022-03-18] VITALS (15 sets, daily range): BP systolic 76–160; BP diastolic 39–102; O2SAT 91–93
[2022-03-18] MEDS: VANCOMYCIN HCL 1,000 MG, VIAL MATE ADAPTER 1 EACH in D5W 250 ML IV SCH (03:40)
[2022-03-18 04:56] LABS: BASO # 0.1 10^3/uL (0.0-0.2); BASO % 0.6 % (0.0-1.0); EOS % 0.2 % (0.0-3.0); HEMATOCRIT 36.3 % (42.0-52.0); LYMPH # 1.2 10^3/uL (1.5-5.0); MEAN CORPUSCULAR HEMOGLOBIN 24.9 pg (27.0-33.0); MEAN CORPUSCULAR HGB CONC 30.3 g/dl (32.0-36.5); MEAN CORPUSCULAR VOLUME 82.1 fl (80.0-96.0); MONO # 1.2 10^3/uL (0.0-0.8); MONO % 12.1 % (2.0-8.0); NEUTROPHILS % 73.7 % (36.0-66.0); PLATELET COUNT, AUTOMATED 196 10^3/uL (150-450); RED BLOOD COUNT 4.42 10^6/uL (4.30-6.10); WHITE BLOOD COUNT 9.5 10^3/uL (4.0-10.0)
[2022-03-18] MEDS: PIPERACILLIN/TAZOBACTAM SOD 3.375 GM in D5W MINI-BAG PLUS 50 ML IV SCH ×4 (05:04→23:56)
[2022-03-18 05:21] LABS: ALBUMIN 2.1 G/DL (3.2-5.2); ALKALINE PHOSPHATASE 86 U/L (46-116); ALT/SGPT 23 U/L (7.0-40); AST/SGOT 26 U/L (<34); BILIRUBIN,TOTAL 0.7 MG/DL (0.3-1.2); BLOOD UREA NITROGEN 30 MG/DL (9-23); CALCIUM LEVEL 7.9 MG/DL (8.3-10.6); CARBON DIOXIDE LEVEL 38 MMOL/L (20-31); CHLORIDE LEVEL 100 MMOL/L (98-107); CREATININE FOR GFR 0.74 MG/DL (0.70-1.30); GLOMERULAR FILTRATION RATE > 60.0 (>42); GLUCOSE, FASTING 154 MG/DL (74-106); POTASSIUM SERUM 3.2 MMOL/L (3.5-5.1); SODIUM LEVEL 142 MMOL/L (136-145); TOTAL PROTEIN 5.7 G/DL (5.7-8.2)
[2022-03-18 05:55] LABS: ABG BASE EXCESS 9.7 (-2.0-2.0); ABG HCO3 35.1 MEQ/L (22.0-26.0); ABG O2 SATURATION 95.9 % (95.0-99.0); ABG PARTIAL PRESSURE CO2 51.6 mmHg (35.0-45.0); ABG PARTIAL PRESSURE O2 80.8 mmHg (75.0-100.0); ABG STANDARD HCO3 33.4 MEQ/L (22.0-26.0); ABG TOTAL CO2 36.7 MEQ/L (23.0-31.0); ABG pH (ARTERIAL) 7.451 UNITS (7.350-7.450)
[2022-03-18] MEDS ORDERED: POTASSIUM CHLORIDE 10MEQ SR TABLET PO ONE (07:45)
[2022-03-18] MEDS: FUROSEMIDE 20MG/2ML VIAL IV SCH (07:48)
[2022-03-18] MEDS: PANTOPRAZOLE 40MG VIAL IV SCH (07:48)
[2022-03-18] MEDS ORDERED: PILL CUTTER 1 EACH XX PRN (08:10)
[2022-03-18] MEDS: INSULIN LISPRO (NovoLOG) PER UNIT SC SCH ×4 (08:10→20:11)
[2022-03-18] MEDS: ACETAMINOPHEN TAB 650MG DOSE (2X325MG) PO PRN ×2 (08:13→22:21)
[2022-03-18] MEDS ORDERED: POTASSIUM CHLORIDE 10% LIQ 20MEQ/15ML UDC PO ONE (08:15)
[2022-03-18] MEDS: IPRATROPIUM 0.5MG/ALBUTEROL 2.5MG INH SOL UD 3ML (DUONEB) NEB SCH ×4 (08:40→19:25)
[2022-03-18] MEDS: FINASTERIDE 5MG TAB PO SCH (11:50)
[2022-03-18] MEDS: VITAMIN D 1,000 INTERNATIONAL UNITS TABLET PO SCH (11:50)
[2022-03-18] MEDS: SIMETHICONE 80MG CHEW TAB PO PRN (11:50)
[2022-03-18] MEDS: ENOXAPARIN 40MG/0.4ML SYRINGE (J1650 PER 10MG) SC SCH (20:11)
[2022-03-18] MEDS ORDERED: POLYVINYL ALCOHOL OPHTH SOLN 15ML (LIQUITEARS) OU PRN (20:55)
[2022-03-19] VITALS (20 sets, daily range): BP systolic 80–108; BP diastolic 40–58; O2SAT 85–97
[2022-03-19] MEDS: PIPERACILLIN/TAZOBACTAM SOD 3.375 GM in D5W MINI-BAG PLUS 50 ML IV SCH ×3 (05:05→17:42)
[2022-03-19 05:19] LABS: BASO # 0.1 10^3/uL (0.0-0.2); BASO % 0.6 % (0.0-1.0); EOS # 0.2 10^3/uL (0.0-0.5); EOS % 1.9 % (0.0-3.0); HEMATOCRIT 36.8 % (42.0-52.0); HEMOGLOBIN 10.9 g/dl (13.5-17.5); LYMPH # 1.1 10^3/uL (1.5-5.0); LYMPH % 12.2 % (24.0-44.0); MEAN CORPUSCULAR HEMOGLOBIN 24.5 pg (27.0-33.0); MEAN CORPUSCULAR HGB CONC 29.6 g/dl (32.0-36.5); MEAN CORPUSCULAR VOLUME 82.9 fl (80.0-96.0); MONO # 1.2 10^3/uL (0.0-0.8); MONO % 13.5 % (2.0-8.0); NEUTROPHILS # 6.3 10^3/uL (1.5-8.5); NEUTROPHILS % 71.6 % (36.0-66.0); PLATELET COUNT, AUTOMATED 176 10^3/uL (150-450); RED BLOOD COUNT 4.44 10^6/uL (4.30-6.10); WHITE BLOOD COUNT 8.8 10^3/uL (4.0-10.0)
[2022-03-19 05:54] LABS: MAGNESIUM LEVEL 1.7 MG/DL (1.8-2.4)
[2022-03-19 05:56] LABS: ALKALINE PHOSPHATASE 80 U/L (46-116); ALT/SGPT 21 U/L (7.0-40); AST/SGOT 25 U/L (<34); BILIRUBIN,TOTAL 0.8 MG/DL (0.3-1.2); BLOOD UREA NITROGEN 23 MG/DL (9-23); CALCIUM LEVEL 8.3 MG/DL (8.3-10.6); CARBON DIOXIDE LEVEL 37 MMOL/L (20-31); CHLORIDE LEVEL 98 MMOL/L (98-107); CREATININE FOR GFR 0.76 MG/DL (0.70-1.30); GLOMERULAR FILTRATION RATE > 60.0 (>42); GLUCOSE, FASTING 124 MG/DL (74-106); POTASSIUM SERUM 3.1 MMOL/L (3.5-5.1); SODIUM LEVEL 140 MMOL/L (136-145); TOTAL PROTEIN 5.7 G/DL (5.7-8.2)
[2022-03-19] MEDS: IPRATROPIUM 0.5MG/ALBUTEROL 2.5MG INH SOL UD 3ML (DUONEB) NEB SCH ×4 (07:54→20:00)
[2022-03-19] MEDS ORDERED: POTASSIUM CHLORIDE 10MEQ SR TABLET PO ONE ×2 (08:00→11:00)
[2022-03-19] MEDS ORDERED: MAG SULF 1GM/100ML (MAG RUN) 1 GM in IV 1 EA IV ONE (08:00)
[2022-03-19] MEDS: ACETAMINOPHEN TAB 650MG DOSE (2X325MG) PO PRN ×2 (08:49→17:43)
[2022-03-19] MEDS: VITAMIN D 1,000 INTERNATIONAL UNITS TABLET PO SCH (08:49)
[2022-03-19] MEDS: FINASTERIDE 5MG TAB PO SCH (08:50)
[2022-03-19] MEDS: PANTOPRAZOLE 40MG VIAL IV SCH (08:50)
[2022-03-19] MEDS: INSULIN LISPRO (NovoLOG) PER UNIT SC SCH ×4 (08:50→20:07)
[2022-03-19] MEDS: FUROSEMIDE 20MG/2ML VIAL IV SCH (08:50)
[2022-03-19 10:18] LABS: APPEARANCE, URINE MANUAL HAZY (CLEAR); COLOR, URINE MANUAL PINK (YELLOW)
[2022-03-19 10:19] LABS: BILIRUBIN, URINE MANUAL NEGATIVE (NEGATIVE); GLUCOSE, URINE (UA) MANUAL NEGATIVE (NEGATIVE); KETONE, URINE MANUAL NEGATIVE (NEGATIVE); LEUKOCYTE ESTERASE, URINE MAN POSITIVE (NEGATIVE); NITRITE, URINE MANUAL NEGATIVE (NEGATIVE); PROTEIN, URINE MANUAL 1+ mg/dL (NEGATIVE); SPECIFIC GRAVITY,URINE MANUAL 1.005 (1.002-1.035); UROBILINOGEN, URINE MANUAL NORMAL (NORMAL)
[2022-03-19 10:20] LABS: BLOOD URINE MANUAL POSITIVE (NEGATIVE)
[2022-03-19 10:53] LABS: RBC, URINE TNTC /hpf (0-3); SQUAMOUS EPITHELIAL CELL URINE SMALL AMOUNT /hpf (SMALL AMT); WBC, URINE 15-20 /hpf (0-3)
[2022-03-19 10:54] LABS: AMORPHOUS SEDIMENT, URINE SMALL AMOUNT (NEGATIVE); BACTERIA, URINE SMALL AMOUNT; HYALINE CAST, URINE NONE SEEN /lpf (0-1); RENAL EPITHELIAL CELLS, URINE SMALL AMOUNT /hpf
[2022-03-19] MEDS: ENOXAPARIN 40MG/0.4ML SYRINGE (J1650 PER 10MG) SC SCH (20:06)
[2022-03-20] VITALS (16 sets, daily range): BP systolic 80–109; BP diastolic 48–58; O2SAT 84–95
[2022-03-20] MEDS: PIPERACILLIN/TAZOBACTAM SOD 3.375 GM in D5W MINI-BAG PLUS 50 ML IV SCH ×5 (00:18→23:11)
[2022-03-20 05:12] LABS: BASO # 0.1 10^3/uL (0.0-0.2); BASO % 0.7 % (0.0-1.0); EOS # 0.5 10^3/uL (0.0-0.5); EOS % 7.5 % (0.0-3.0); HEMATOCRIT 37.3 % (42.0-52.0); HEMOGLOBIN 10.8 g/dl (13.5-17.5); LYMPH # 1.1 10^3/uL (1.5-5.0); LYMPH % 15.8 % (24.0-44.0); MEAN CORPUSCULAR HEMOGLOBIN 24.4 pg (27.0-33.0); MEAN CORPUSCULAR VOLUME 84.4 fl (80.0-96.0); MONO # 0.8 10^3/uL (0.0-0.8); NEUTROPHILS # 4.3 10^3/uL (1.5-8.5); NEUTROPHILS % 63.7 % (36.0-66.0); PLATELET COUNT, AUTOMATED 163 10^3/uL (150-450); RED BLOOD COUNT 4.42 10^6/uL (4.30-6.10); WHITE BLOOD COUNT 6.8 10^3/uL (4.0-10.0)
[2022-03-20 05:42] LABS: MAGNESIUM LEVEL 1.7 MG/DL (1.8-2.4)
[2022-03-20 05:45] LABS: ALKALINE PHOSPHATASE 72 U/L (46-116); ALT/SGPT 16 U/L (7.0-40); AST/SGOT 25 U/L (<34); BILIRUBIN,TOTAL 0.5 MG/DL (0.3-1.2); BLOOD UREA NITROGEN 14 MG/DL (9-23); CALCIUM LEVEL 8.5 MG/DL (8.3-10.6); CARBON DIOXIDE LEVEL 37 MMOL/L (20-31); CHLORIDE LEVEL 102 MMOL/L (98-107); CREATININE FOR GFR 0.66 MG/DL (0.70-1.30); GLOMERULAR FILTRATION RATE > 60.0 (>42); GLUCOSE, FASTING 145 MG/DL (74-106); POTASSIUM SERUM 3.6 MMOL/L (3.5-5.1); SODIUM LEVEL 143 MMOL/L (136-145); TOTAL PROTEIN 5.8 G/DL (5.7-8.2)
[2022-03-20] MEDS: IPRATROPIUM 0.5MG/ALBUTEROL 2.5MG INH SOL UD 3ML (DUONEB) NEB SCH ×4 (07:39→19:35)
[2022-03-20] MEDS: traMADol 50 MG TAB PO PRN ×2 (09:50→23:14)
[2022-03-20] MEDS: FINASTERIDE 5MG TAB PO SCH (09:51)
[2022-03-20] MEDS: VITAMIN D 1,000 INTERNATIONAL UNITS TABLET PO SCH (09:51)
[2022-03-20] MEDS: INSULIN LISPRO (NovoLOG) PER UNIT SC SCH ×4 (09:52→20:01)
[2022-03-20] MEDS: MAG SULF 1GM/100ML (MAG RUN) 1 GM in IV 1 EA IV SCH ×2 (09:52→11:28)
[2022-03-20] MEDS: FUROSEMIDE 20MG/2ML VIAL IV SCH (09:53)
[2022-03-20] MEDS: PANTOPRAZOLE 40MG VIAL IV SCH (09:53)
[2022-03-20] MEDS: ACETAMINOPHEN TAB 650MG DOSE (2X325MG) PO PRN ×2 (10:00→17:12)
[2022-03-20] MEDS ORDERED: MAG SULF 1GM/100ML (MAG RUN) 1 GM in IV 1 EA IV ONE (11:25)
[2022-03-20] MEDS: ENOXAPARIN 40MG/0.4ML SYRINGE (J1650 PER 10MG) SC SCH (20:01)
[2022-03-21] VITALS (13 sets, daily range): BP systolic 100–148; BP diastolic 50–60; O2SAT 86–99
[2022-03-21] MEDS: PIPERACILLIN/TAZOBACTAM SOD 3.375 GM in D5W MINI-BAG PLUS 50 ML IV SCH (05:17)
[2022-03-21] MEDS: ACETAMINOPHEN TAB 650MG DOSE (2X325MG) PO PRN (05:28)
[2022-03-21 05:34] LABS: BASO % 0.5 % (0.0-1.0); EOS # 0.6 10^3/uL (0.0-0.5); EOS % 8.7 % (0.0-3.0); HEMATOCRIT 37.5 % (42.0-52.0); HEMOGLOBIN 10.7 g/dl (13.5-17.5); LYMPH # 1.2 10^3/uL (1.5-5.0); LYMPH % 18.1 % (24.0-44.0); MEAN CORPUSCULAR HEMOGLOBIN 24.4 pg (27.0-33.0); MEAN CORPUSCULAR HGB CONC 28.5 g/dl (32.0-36.5); MEAN CORPUSCULAR VOLUME 85.4 fl (80.0-96.0); MONO # 0.7 10^3/uL (0.0-0.8); MONO % 11.2 % (2.0-8.0); NEUTROPHILS % 61.2 % (36.0-66.0); PLATELET COUNT, AUTOMATED 144 10^3/uL (150-450); RED BLOOD COUNT 4.39 10^6/uL (4.30-6.10); WHITE BLOOD COUNT 6.5 10^3/uL (4.0-10.0)
[2022-03-21 05:49] LABS: MAGNESIUM LEVEL 1.6 MG/DL (1.8-2.4)
[2022-03-21 05:54] LABS: ALBUMIN 2.2 G/DL (3.2-5.2); ALKALINE PHOSPHATASE 67 U/L (46-116); ALT/SGPT 13 U/L (7.0-40); AST/SGOT 22 U/L (<34); BILIRUBIN,TOTAL 0.5 MG/DL (0.3-1.2); BLOOD UREA NITROGEN 8 MG/DL (9-23); CALCIUM LEVEL 8.6 MG/DL (8.3-10.6); CARBON DIOXIDE LEVEL 40 MMOL/L (20-31); CHLORIDE LEVEL 101 MMOL/L (98-107); CREATININE FOR GFR 0.59 MG/DL (0.70-1.30); GLOMERULAR FILTRATION RATE > 60.0 (>42); GLUCOSE, FASTING 125 MG/DL (74-106); POTASSIUM SERUM 3.3 MMOL/L (3.5-5.1); SODIUM LEVEL 143 MMOL/L (136-145); TOTAL PROTEIN 6.1 G/DL (5.7-8.2)
[2022-03-21] MEDS: IPRATROPIUM 0.5MG/ALBUTEROL 2.5MG INH SOL UD 3ML (DUONEB) NEB SCH ×4 (07:06→21:15)
[2022-03-21] MEDS ORDERED: POTASSIUM CHLORIDE 10MEQ SR TABLET PO ONE (08:00)
[2022-03-21] MEDS ORDERED: MAG SULF 1GM/100ML (MAG RUN) 1 GM in IV 1 EA IV ONE (08:00)
[2022-03-21] MEDS: FINASTERIDE 5MG TAB PO SCH (08:20)
[2022-03-21] MEDS: VITAMIN D 1,000 INTERNATIONAL UNITS TABLET PO SCH (08:20)
[2022-03-21] MEDS: ENOXAPARIN 60MG/0.6ML SYRINGE (J1650 PER 10MG) SC SCH ×2 (08:21→21:34)
[2022-03-21] MEDS: FUROSEMIDE 20MG/2ML VIAL IV SCH (08:21)
[2022-03-21] MEDS: PANTOPRAZOLE 40MG VIAL IV SCH (08:21)
[2022-03-21] MEDS: INSULIN LISPRO (NovoLOG) PER UNIT SC SCH ×4 (08:22→20:03)
[2022-03-21] MEDS ORDERED: DOCUSATE SODIUM 100MG CAPSULE PO ONE (11:35)
[2022-03-21] MEDS: SENNA 8.6 MG TAB (SENOKOT) PO SCH (13:01)
[2022-03-21] MEDS: MIRALAX *UNIT DOSE* 17GM PACKET PO SCH (13:01)
[2022-03-21] MEDS: traMADol 50 MG TAB PO PRN (20:46)
[2022-03-22] VITALS (21 sets, daily range): BP systolic 92–116; BP diastolic 50–58; O2SAT 83–99
[2022-03-22] MEDS: traMADol 50 MG TAB PO PRN ×2 (04:58→14:41)
[2022-03-22 05:42] LABS: BASO % 0.5 % (0.0-1.0); EOS # 0.6 10^3/uL (0.0-0.5); HEMATOCRIT 37.9 % (42.0-52.0); HEMOGLOBIN 10.8 g/dl (13.5-17.5); LYMPH # 1.3 10^3/uL (1.5-5.0); LYMPH % 18.9 % (24.0-44.0); MEAN CORPUSCULAR HEMOGLOBIN 24.3 pg (27.0-33.0); MEAN CORPUSCULAR HGB CONC 28.5 g/dl (32.0-36.5); MEAN CORPUSCULAR VOLUME 85.4 fl (80.0-96.0); MONO # 0.7 10^3/uL (0.0-0.8); MONO % 10.6 % (2.0-8.0); NEUTROPHILS % 60.8 % (36.0-66.0); PLATELET COUNT, AUTOMATED 137 10^3/uL (150-450); RED BLOOD COUNT 4.44 10^6/uL (4.30-6.10); WHITE BLOOD COUNT 6.6 10^3/uL (4.0-10.0)
[2022-03-22 06:10] LABS: MAGNESIUM LEVEL 1.5 MG/DL (1.8-2.4)
[2022-03-22 06:14] LABS: ALKALINE PHOSPHATASE 67 U/L (46-116); ALT/SGPT 14 U/L (7.0-40); AST/SGOT 20 U/L (<34); BILIRUBIN,TOTAL 0.5 MG/DL (0.3-1.2); BLOOD UREA NITROGEN 11 MG/DL (9-23); CALCIUM LEVEL 8.7 MG/DL (8.3-10.6); CARBON DIOXIDE LEVEL > 40.0 MMOL/L (20-31); CHLORIDE LEVEL 100 MMOL/L (98-107); CREATININE FOR GFR 0.51 MG/DL (0.70-1.30); GLOMERULAR FILTRATION RATE > 60.0 (>42); GLUCOSE, FASTING 120 MG/DL (74-106); POTASSIUM SERUM 3.3 MMOL/L (3.5-5.1); SODIUM LEVEL 144 MMOL/L (136-145); TOTAL PROTEIN 5.6 G/DL (5.7-8.2)
[2022-03-22] MEDS: IPRATROPIUM 0.5MG/ALBUTEROL 2.5MG INH SOL UD 3ML (DUONEB) NEB SCH ×4 (07:07→19:54)
[2022-03-22 07:27] LABS: VENOUS BASE EXCESS 11.3 (-2.0-2.0); VENOUS HCO3 39.7 MEQ/L (23.0-27.0); VENOUS O2 SATURATION 99.6 % (60.0-80.0); VENOUS PARTIAL PRESSURE CO2 74.6 mmHg (38.0-50.0); VENOUS PARTIAL PRESSURE O2 185.6 mmHg (30.0-50.0); VENOUS PH 7.344 UNITS (7.330-7.430); VENOUS STANDARD HCO3 35.1 MEQ/L
[2022-03-22] MEDS: INSULIN LISPRO (NovoLOG) PER UNIT SC SCH ×4 (07:30→20:19)
[2022-03-22] MEDS: MIRALAX *UNIT DOSE* 17GM PACKET PO SCH (09:00)
[2022-03-22] MEDS: MAG SULF 1GM/100ML (MAG RUN) 1 GM in IV 1 EA IV SCH ×3 (09:50→12:28)
[2022-03-22] MEDS: FUROSEMIDE 20MG/2ML VIAL IV SCH (09:51)
[2022-03-22] MEDS: SENNA 8.6 MG TAB (SENOKOT) PO SCH (09:51)
[2022-03-22] MEDS: ENOXAPARIN 60MG/0.6ML SYRINGE (J1650 PER 10MG) SC SCH ×2 (09:51→20:44)
[2022-03-22] MEDS: PANTOPRAZOLE 40MG VIAL IV SCH (09:51)
[2022-03-22] MEDS: FINASTERIDE 5MG TAB PO SCH (09:51)
[2022-03-22] MEDS: POTASSIUM CHLORIDE 10MEQ SR TABLET PO SCH (09:51)
[2022-03-22] MEDS: VITAMIN D 1,000 INTERNATIONAL UNITS TABLET PO SCH (09:51)
[2022-03-22] MEDS: ACETAMINOPHEN TAB 650MG DOSE (2X325MG) PO PRN (14:41)
[2022-03-23] VITALS (31 sets, daily range): BP systolic 91–150; BP diastolic 47–59; O2SAT 85–97
[2022-03-23] MEDS: traMADol 50 MG TAB PO PRN ×2 (01:02→09:50)
[2022-03-23] MEDS ORDERED: SODIUM CHLORIDE 0.9% 1000ML IV ONE (03:40)
[2022-03-23 05:41] LABS: BASO % 0.4 % (0.0-1.0); EOS # 0.5 10^3/uL (0.0-0.5); EOS % 6.9 % (0.0-3.0); HEMATOCRIT 36.7 % (42.0-52.0); HEMOGLOBIN 10.6 g/dl (13.5-17.5); LYMPH # 1.3 10^3/uL (1.5-5.0); LYMPH % 19.3 % (24.0-44.0); MEAN CORPUSCULAR HEMOGLOBIN 24.4 pg (27.0-33.0); MEAN CORPUSCULAR HGB CONC 28.9 g/dl (32.0-36.5); MEAN CORPUSCULAR VOLUME 84.4 fl (80.0-96.0); MONO # 0.7 10^3/uL (0.0-0.8); NEUTROPHILS # 4.3 10^3/uL (1.5-8.5); NEUTROPHILS % 63.1 % (36.0-66.0); PLATELET COUNT, AUTOMATED 132 10^3/uL (150-450); RED BLOOD COUNT 4.35 10^6/uL (4.30-6.10); WHITE BLOOD COUNT 6.8 10^3/uL (4.0-10.0)
[2022-03-23 06:04] LABS: MAGNESIUM LEVEL 1.6 MG/DL (1.8-2.4)
[2022-03-23 06:07] LABS: ALKALINE PHOSPHATASE 64 U/L (46-116); ALT/SGPT 17 U/L (7.0-40); AST/SGOT 17 U/L (<34); BILIRUBIN,TOTAL 0.5 MG/DL (0.3-1.2); BLOOD UREA NITROGEN 10 MG/DL (9-23); CALCIUM LEVEL 8.7 MG/DL (8.3-10.6); CARBON DIOXIDE LEVEL 35 MMOL/L (20-31); CHLORIDE LEVEL 102 MMOL/L (98-107); CREATININE FOR GFR 0.53 MG/DL (0.70-1.30); GLOMERULAR FILTRATION RATE > 60.0 (>42); GLUCOSE, FASTING 126 MG/DL (74-106); POTASSIUM SERUM 3.3 MMOL/L (3.5-5.1); SODIUM LEVEL 143 MMOL/L (136-145); TOTAL PROTEIN 5.4 G/DL (5.7-8.2)
[2022-03-23] MEDS ORDERED: POTASSIUM CHLORIDE 10MEQ SR TABLET PO ONE (07:00)
[2022-03-23] MEDS: IPRATROPIUM 0.5MG/ALBUTEROL 2.5MG INH SOL UD 3ML (DUONEB) NEB SCH ×3 (07:31→15:53)
[2022-03-23] MEDS: VITAMIN D 1,000 INTERNATIONAL UNITS TABLET PO SCH (08:27)
[2022-03-23] MEDS: INSULIN LISPRO (NovoLOG) PER UNIT SC SCH ×4 (08:27→20:22)
[2022-03-23] MEDS: FINASTERIDE 5MG TAB PO SCH (08:27)
[2022-03-23] MEDS: FUROSEMIDE 20MG/2ML VIAL IV SCH (08:27)
[2022-03-23] MEDS: SENNA 8.6 MG TAB (SENOKOT) PO SCH (08:27)
[2022-03-23] MEDS: MAG SULF 1GM/100ML (MAG RUN) 1 GM in IV 1 EA IV SCH ×3 (08:28→11:48)
[2022-03-23] MEDS: MIRALAX *UNIT DOSE* 17GM PACKET PO SCH (08:28)
[2022-03-23] MEDS: PANTOPRAZOLE 40MG VIAL IV SCH (08:28)
[2022-03-23] MEDS: ENOXAPARIN 60MG/0.6ML SYRINGE (J1650 PER 10MG) SC SCH ×2 (08:28→22:02)
[2022-03-23] MEDS: ACETAMINOPHEN TAB 650MG DOSE (2X325MG) PO PRN (08:30)
[2022-03-23] MEDS: ACETAMINOPHEN 650MG ER TAB (TYLENOL ARTHRITIS) PO SCH ×3 (08:48→22:02)
[2022-03-23] MEDS: POTASSIUM CHLORIDE 10MEQ SR TABLET PO SCH (09:46)
[2022-03-23] MEDS: DOCUSATE SODIUM 100MG CAPSULE PO SCH (09:46)
[2022-03-23 11:40] LABS: VENOUS HCO3 38.9 MEQ/L (23.0-27.0); VENOUS O2 SATURATION 97.9 % (60.0-80.0); VENOUS PARTIAL PRESSURE CO2 69.3 mmHg (38.0-50.0); VENOUS PARTIAL PRESSURE O2 99.2 mmHg (30.0-50.0); VENOUS PH 7.367 UNITS (7.330-7.430); VENOUS STANDARD HCO3 34.8 MEQ/L
[2022-03-24] VITALS (12 sets, daily range): BP systolic 90–124; BP diastolic 47–70; O2SAT 92–95
[2022-03-24] MEDS: ACETAMINOPHEN 650MG ER TAB (TYLENOL ARTHRITIS) PO SCH ×3 (05:35→22:06)
[2022-03-24 05:41] LABS: BASO # 0.1 10^3/uL (0.0-0.2); BASO % 0.8 % (0.0-1.0); EOS # 0.5 10^3/uL (0.0-0.5); EOS % 7.3 % (0.0-3.0); HEMATOCRIT 37.8 % (42.0-52.0); HEMOGLOBIN 11.1 g/dl (13.5-17.5); LYMPH # 1.4 10^3/uL (1.5-5.0); LYMPH % 22.5 % (24.0-44.0); MEAN CORPUSCULAR HEMOGLOBIN 24.6 pg (27.0-33.0); MEAN CORPUSCULAR HGB CONC 29.4 g/dl (32.0-36.5); MEAN CORPUSCULAR VOLUME 83.6 fl (80.0-96.0); MONO # 0.6 10^3/uL (0.0-0.8); MONO % 9.1 % (2.0-8.0); NEUTROPHILS # 3.7 10^3/uL (1.5-8.5); PLATELET COUNT, AUTOMATED 146 10^3/uL (150-450); RED BLOOD COUNT 4.52 10^6/uL (4.30-6.10); WHITE BLOOD COUNT 6.1 10^3/uL (4.0-10.0)
[2022-03-24 06:07] LABS: MAGNESIUM LEVEL 1.7 MG/DL (1.8-2.4)
[2022-03-24 06:11] LABS: ALBUMIN 2.3 G/DL (3.2-5.2); ALKALINE PHOSPHATASE 70 U/L (46-116); ALT/SGPT 13 U/L (7.0-40); AST/SGOT 19 U/L (<34); BILIRUBIN,TOTAL 0.5 MG/DL (0.3-1.2); BLOOD UREA NITROGEN 8 MG/DL (9-23); CALCIUM LEVEL 9.1 MG/DL (8.3-10.6); CARBON DIOXIDE LEVEL 38 MMOL/L (20-31); CHLORIDE LEVEL 100 MMOL/L (98-107); CREATININE FOR GFR 0.52 MG/DL (0.70-1.30); GLOMERULAR FILTRATION RATE > 60.0 (>42); GLUCOSE, FASTING 124 MG/DL (74-106); POTASSIUM SERUM 3.5 MMOL/L (3.5-5.1); SODIUM LEVEL 140 MMOL/L (136-145)
[2022-03-24] MEDS ORDERED: BISACODYL 5MG TAB PO ONE (08:25)
[2022-03-24] MEDS: SENNA 8.6 MG TAB (SENOKOT) PO SCH (08:43)
[2022-03-24] MEDS: PANTOPRAZOLE 40MG TAB (PROTONIX) PO SCH (08:43)
[2022-03-24] MEDS: DOCUSATE SODIUM 100MG CAPSULE PO SCH (08:43)
[2022-03-24] MEDS: FINASTERIDE 5MG TAB PO SCH (08:44)
[2022-03-24] MEDS: FUROSEMIDE 20MG/2ML VIAL IV SCH (08:44)
[2022-03-24] MEDS: MIRALAX *UNIT DOSE* 17GM PACKET PO SCH (08:44)
[2022-03-24] MEDS: traMADol 50 MG TAB PO PRN (08:44)
[2022-03-24] MEDS: VITAMIN D 1,000 INTERNATIONAL UNITS TABLET PO SCH (08:44)
[2022-03-24] MEDS: POTASSIUM CHLORIDE 10MEQ SR TABLET PO SCH (08:44)
[2022-03-24] MEDS: INSULIN LISPRO (NovoLOG) PER UNIT SC SCH ×4 (08:45→21:00)
[2022-03-24] MEDS: ENOXAPARIN 60MG/0.6ML SYRINGE (J1650 PER 10MG) SC SCH ×2 (08:45→22:06)
[2022-03-24] MEDS: MAG SULF 1GM/100ML (MAG RUN) 1 GM in IV 1 EA IV SCH ×2 (08:46→10:27)
[2022-03-24] MEDS: MOM 30ML SUSPENSION UDC PO SCH (10:27)
[2022-03-24] MEDS: SIMETHICONE 80MG CHEW TAB PO PRN (18:38)
[2022-03-24] MEDS ORDERED: POTASSIUM CHLORIDE 10MEQ SR TABLET PO SCH (21:00)
[2022-03-25] VITALS (18 sets, daily range): BP systolic 105–123; BP diastolic 55–59; O2SAT 90–96
[2022-03-25] MEDS ORDERED: SODIUM CHLORIDE NASAL 0.65% SPRAY BTL (OCEAN) PRN (01:05)
[2022-03-25] MEDS: ACETAMINOPHEN 650MG ER TAB (TYLENOL ARTHRITIS) PO SCH ×3 (05:09→20:55)
[2022-03-25] MEDS: traMADol 50 MG TAB PO PRN ×2 (05:10→11:50)
[2022-03-25 05:27] LABS: BASO # 0.1 10^3/uL (0.0-0.2); BASO % 0.7 % (0.0-1.0); EOS # 0.4 10^3/uL (0.0-0.5); EOS % 6.3 % (0.0-3.0); HEMATOCRIT 37.3 % (42.0-52.0); LYMPH # 1.7 10^3/uL (1.5-5.0); LYMPH % 23.8 % (24.0-44.0); MEAN CORPUSCULAR HEMOGLOBIN 24.7 pg (27.0-33.0); MEAN CORPUSCULAR HGB CONC 29.5 g/dl (32.0-36.5); MEAN CORPUSCULAR VOLUME 83.6 fl (80.0-96.0); MONO # 0.7 10^3/uL (0.0-0.8); MONO % 9.8 % (2.0-8.0); NEUTROPHILS # 4.1 10^3/uL (1.5-8.5); NEUTROPHILS % 59.1 % (36.0-66.0); PLATELET COUNT, AUTOMATED 150 10^3/uL (150-450); RED BLOOD COUNT 4.46 10^6/uL (4.30-6.10); WHITE BLOOD COUNT 6.9 10^3/uL (4.0-10.0)
[2022-03-25 05:47] LABS: MAGNESIUM LEVEL 1.7 MG/DL (1.8-2.4)
[2022-03-25 05:51] LABS: ALBUMIN 2.1 G/DL (3.2-5.2); ALKALINE PHOSPHATASE 72 U/L (46-116); ALT/SGPT 18 U/L (7.0-40); AST/SGOT 20 U/L (<34); BILIRUBIN,TOTAL 0.6 MG/DL (0.3-1.2); BLOOD UREA NITROGEN 11 MG/DL (9-23); CALCIUM LEVEL 8.8 MG/DL (8.3-10.6); CARBON DIOXIDE LEVEL 35 MMOL/L (20-31); CHLORIDE LEVEL 102 MMOL/L (98-107); CREATININE FOR GFR 0.57 MG/DL (0.70-1.30); GLOMERULAR FILTRATION RATE > 60.0 (>42); GLUCOSE, FASTING 110 MG/DL (74-106); POTASSIUM SERUM 3.7 MMOL/L (3.5-5.1); SODIUM LEVEL 144 MMOL/L (136-145); TOTAL PROTEIN 5.6 G/DL (5.7-8.2)
[2022-03-25] MEDS: PANTOPRAZOLE 40MG TAB (PROTONIX) PO SCH (08:27)
[2022-03-25] MEDS: INSULIN LISPRO (NovoLOG) PER UNIT SC SCH ×4 (08:27→20:54)
[2022-03-25] MEDS: ENOXAPARIN 60MG/0.6ML SYRINGE (J1650 PER 10MG) SC SCH ×2 (08:27→20:56)
[2022-03-25] MEDS: MAGNESIUM OXIDE 400MG TAB (MAG-OX) PO SCH ×2 (08:27→20:55)
[2022-03-25] MEDS: FINASTERIDE 5MG TAB PO SCH (08:28)
[2022-03-25] MEDS: VITAMIN D 1,000 INTERNATIONAL UNITS TABLET PO SCH (08:28)
[2022-03-25] MEDS: POTASSIUM CHLORIDE 10MEQ SR TABLET PO SCH (08:30)
[2022-03-25] MEDS: TORSEMIDE 20 MG TAB PO SCH (08:31)
[2022-03-25] MEDS: DOCUSATE SODIUM 100MG CAPSULE PO SCH (08:41)
[2022-03-25] MEDS: MOM 30ML SUSPENSION UDC PO SCH (08:41)
[2022-03-25] MEDS: SENNA 8.6 MG TAB (SENOKOT) PO SCH (08:41)
[2022-03-25] MEDS: MIRALAX *UNIT DOSE* 17GM PACKET PO SCH (08:41)
[2022-03-25] MEDS ORDERED: TORSEMIDE 20 MG TAB PO SCH (09:00)
[2022-03-25] MEDS ORDERED: POTASSIUM CHLORIDE 10MEQ SR TABLET PO SCH (09:00)
[2022-03-26] VITALS (20 sets, daily range): BP systolic 102–109; BP diastolic 53–57; O2SAT 90–100
[2022-03-26] MEDS: ACETAMINOPHEN 650MG ER TAB (TYLENOL ARTHRITIS) PO SCH ×3 (06:19→21:16)
[2022-03-26] MEDS: NYSTATIN 100,000 UNITS/GM TOPICAL PWD 15GM TOP PRN (06:20)
[2022-03-26 08:18] LABS: MAGNESIUM LEVEL 1.6 MG/DL (1.8-2.4)
[2022-03-26] MEDS: POTASSIUM CHLORIDE 10MEQ SR TABLET PO SCH (08:19)
[2022-03-26] MEDS: DOCUSATE SODIUM 100MG CAPSULE PO SCH (08:19)
[2022-03-26] MEDS: INSULIN LISPRO (NovoLOG) PER UNIT SC SCH ×4 (08:19→20:30)
[2022-03-26 08:20] LABS: BLOOD UREA NITROGEN 11 MG/DL (9-23); CALCIUM LEVEL 8.9 MG/DL (8.3-10.6); CARBON DIOXIDE LEVEL 39 MMOL/L (20-31); CHLORIDE LEVEL 101 MMOL/L (98-107); CREATININE FOR GFR 0.57 MG/DL (0.70-1.30); GLOMERULAR FILTRATION RATE > 60.0 (>42); GLUCOSE, FASTING 132 MG/DL (74-106); POTASSIUM SERUM 3.8 MMOL/L (3.5-5.1); SODIUM LEVEL 143 MMOL/L (136-145)
[2022-03-26] MEDS: MAGNESIUM OXIDE 400MG TAB (MAG-OX) PO SCH ×2 (08:20→21:16)
[2022-03-26] MEDS: traMADol 50 MG TAB PO PRN (08:20)
[2022-03-26] MEDS: PANTOPRAZOLE 40MG TAB (PROTONIX) PO SCH (08:20)
[2022-03-26] MEDS: ENOXAPARIN 60MG/0.6ML SYRINGE (J1650 PER 10MG) SC SCH ×2 (08:20→21:16)
[2022-03-26] MEDS: TORSEMIDE 20 MG TAB PO SCH (08:21)
[2022-03-26] MEDS: FINASTERIDE 5MG TAB PO SCH (08:21)
[2022-03-26] MEDS: VITAMIN D 1,000 INTERNATIONAL UNITS TABLET PO SCH (08:21)
[2022-03-26] MEDS: SENNA 8.6 MG TAB (SENOKOT) PO SCH (08:22)
[2022-03-26] MEDS: MOM 30ML SUSPENSION UDC PO SCH (08:22)
[2022-03-26] MEDS: MIRALAX *UNIT DOSE* 17GM PACKET PO SCH (08:22)
[2022-03-27] VITALS (15 sets, daily range): BP systolic 101–119; BP diastolic 50–57; O2SAT 89–95
[2022-03-27] MEDS: ACETAMINOPHEN 650MG ER TAB (TYLENOL ARTHRITIS) PO SCH ×3 (05:06→20:34)
[2022-03-27] MEDS: MIRALAX *UNIT DOSE* 17GM PACKET PO SCH (09:00)
[2022-03-27] MEDS: MOM 30ML SUSPENSION UDC PO SCH (09:00)
[2022-03-27] MEDS: INSULIN LISPRO (NovoLOG) PER UNIT SC SCH ×4 (09:22→20:13)
[2022-03-27] MEDS: TORSEMIDE 20 MG TAB PO SCH (09:23)
[2022-03-27] MEDS: traMADol 50 MG TAB PO PRN (09:23)
[2022-03-27] MEDS: MAGNESIUM OXIDE 400MG TAB (MAG-OX) PO SCH ×2 (09:23→20:35)
[2022-03-27] MEDS: PANTOPRAZOLE 40MG TAB (PROTONIX) PO SCH (09:23)
[2022-03-27] MEDS: SENNA 8.6 MG TAB (SENOKOT) PO SCH (09:24)
[2022-03-27] MEDS: FINASTERIDE 5MG TAB PO SCH (09:24)
[2022-03-27] MEDS: DOCUSATE SODIUM 100MG CAPSULE PO SCH (09:24)
[2022-03-27] MEDS: VITAMIN D 1,000 INTERNATIONAL UNITS TABLET PO SCH (09:24)
[2022-03-27] MEDS: POTASSIUM CHLORIDE 10MEQ SR TABLET PO SCH (09:24)
[2022-03-27] MEDS: ENOXAPARIN 60MG/0.6ML SYRINGE (J1650 PER 10MG) SC SCH ×2 (09:25→20:35)
[2022-03-28] VITALS (11 sets, daily range): BP systolic 104–119; BP diastolic 53–60; O2SAT 90–93
[2022-03-28] MEDS: ACETAMINOPHEN 650MG ER TAB (TYLENOL ARTHRITIS) PO SCH ×3 (06:05→20:07)
[2022-03-28 08:38] LABS: BLOOD UREA NITROGEN 12 MG/DL (9-23); CALCIUM LEVEL 9.1 MG/DL (8.3-10.6); CARBON DIOXIDE LEVEL 38 MMOL/L (20-31); CHLORIDE LEVEL 102 MMOL/L (98-107); CREATININE FOR GFR 0.59 MG/DL (0.70-1.30); GLOMERULAR FILTRATION RATE > 60.0 (>42); GLUCOSE, FASTING 126 MG/DL (74-106); POTASSIUM SERUM 3.9 MMOL/L (3.5-5.1); SODIUM LEVEL 143 MMOL/L (136-145)
[2022-03-28] MEDS: TORSEMIDE 20 MG TAB PO SCH (08:52)
[2022-03-28] MEDS: MIRALAX *UNIT DOSE* 17GM PACKET PO SCH (08:53)
[2022-03-28] MEDS: MOM 30ML SUSPENSION UDC PO SCH (08:54)
[2022-03-28] MEDS: SENNA 8.6 MG TAB (SENOKOT) PO SCH (08:54)
[2022-03-28] MEDS: INSULIN LISPRO (NovoLOG) PER UNIT SC SCH ×4 (09:24→20:01)
[2022-03-28] MEDS: FINASTERIDE 5MG TAB PO SCH (09:25)
[2022-03-28] MEDS: ENOXAPARIN 60MG/0.6ML SYRINGE (J1650 PER 10MG) SC SCH ×2 (09:25→20:07)
[2022-03-28] MEDS: traMADol 50 MG TAB PO PRN (09:26)
[2022-03-28] MEDS: POTASSIUM CHLORIDE 10MEQ SR TABLET PO SCH (09:26)
[2022-03-28] MEDS: MAGNESIUM OXIDE 400MG TAB (MAG-OX) PO SCH ×2 (09:27→20:07)
[2022-03-28] MEDS: DOCUSATE SODIUM 100MG CAPSULE PO SCH (09:27)
[2022-03-28] MEDS: VITAMIN D 1,000 INTERNATIONAL UNITS TABLET PO SCH (09:27)
[2022-03-28] MEDS: PANTOPRAZOLE 40MG TAB (PROTONIX) PO SCH (09:28)
[2022-03-28] MEDS: NYSTATIN 100,000 UNITS/GM TOPICAL PWD 15GM TOP PRN (12:20)
[2022-03-29] MEDS: ACETAMINOPHEN 650MG ER TAB (TYLENOL ARTHRITIS) PO SCH ×3 (05:14→22:19)
[2022-03-29 08:14] VITALS: BP 97/56
[2022-03-29] MEDS: TORSEMIDE 20 MG TAB PO SCH (08:18)
[2022-03-29] MEDS ORDERED: MIDODRINE 5 MG TAB PO PRN (08:55)
[2022-03-29] MEDS: MIRALAX *UNIT DOSE* 17GM PACKET PO SCH (09:00)
[2022-03-29] MEDS: MOM 30ML SUSPENSION UDC PO SCH ×2 (09:00→17:46)
[2022-03-29] MEDS: INSULIN LISPRO (NovoLOG) PER UNIT SC SCH ×4 (09:12→21:00)
[2022-03-29] MEDS: ENOXAPARIN 60MG/0.6ML SYRINGE (J1650 PER 10MG) SC SCH ×2 (09:12→23:00)
[2022-03-29] MEDS: SENNA 8.6 MG TAB (SENOKOT) PO SCH (09:13)
[2022-03-29] MEDS: POTASSIUM CHLORIDE 10MEQ SR TABLET PO SCH (09:13)
[2022-03-29] MEDS: VITAMIN D 1,000 INTERNATIONAL UNITS TABLET PO SCH (09:13)
[2022-03-29] MEDS: MAGNESIUM OXIDE 400MG TAB (MAG-OX) PO SCH ×2 (09:14→21:00)
[2022-03-29] MEDS: FINASTERIDE 5MG TAB PO SCH (09:14)
[2022-03-29] MEDS: DOCUSATE SODIUM 100MG CAPSULE PO SCH (09:14)
[2022-03-29] MEDS: PANTOPRAZOLE 40MG TAB (PROTONIX) PO SCH (09:14)
[2022-03-29] MEDS: traMADol 50 MG TAB PO PRN ×2 (09:14→22:20)
[2022-03-29 09:26] VITALS: BP 104/70
[2022-03-29] MEDS: MAG SULF 1GM/100ML (MAG RUN) 1 GM in IV 1 EA IV SCH ×2 (11:32→12:57)
[2022-03-29 20:10] VITALS: BP 144/69
[2022-03-30] MEDS: ACETAMINOPHEN 650MG ER TAB (TYLENOL ARTHRITIS) PO SCH ×3 (05:28→20:45)
[2022-03-30 06:00] VITALS: BP 151/72
[2022-03-30] MEDS: DOCUSATE SODIUM 100MG CAPSULE PO SCH (08:27)
[2022-03-30] MEDS: SENNA 8.6 MG TAB (SENOKOT) PO SCH (08:27)
[2022-03-30] MEDS: INSULIN LISPRO (NovoLOG) PER UNIT SC SCH ×4 (08:28→21:00)
[2022-03-30] MEDS: FINASTERIDE 5MG TAB PO SCH (08:28)
[2022-03-30] MEDS: ENOXAPARIN 60MG/0.6ML SYRINGE (J1650 PER 10MG) SC SCH ×2 (08:28→20:46)
[2022-03-30] MEDS: PANTOPRAZOLE 40MG TAB (PROTONIX) PO SCH (08:28)
[2022-03-30] MEDS: MOM 30ML SUSPENSION UDC PO SCH (08:29)
[2022-03-30] MEDS: POTASSIUM CHLORIDE 10MEQ SR TABLET PO SCH (08:29)
[2022-03-30] MEDS: VITAMIN D 1,000 INTERNATIONAL UNITS TABLET PO SCH (08:29)
[2022-03-30] MEDS: MAGNESIUM OXIDE 400MG TAB (MAG-OX) PO SCH ×2 (08:29→20:46)
[2022-03-30] MEDS: TORSEMIDE 20 MG TAB PO SCH (08:30)
[2022-03-30] MEDS: MIRALAX *UNIT DOSE* 17GM PACKET PO SCH (08:30)
[2022-03-30] MEDS: traMADol 50 MG TAB PO PRN ×2 (10:09→20:45)
[2022-03-31 05:40] VITALS: BP 136/75
[2022-03-31 06:38] LABS: MAGNESIUM LEVEL 1.7 MG/DL (1.8-2.4)
[2022-03-31] MEDS: ACETAMINOPHEN 650MG ER TAB (TYLENOL ARTHRITIS) PO SCH ×3 (06:38→20:51)
[2022-03-31 06:40] LABS: BLOOD UREA NITROGEN 12 MG/DL (9-23); CALCIUM LEVEL 8.6 MG/DL (8.3-10.6); CARBON DIOXIDE LEVEL 36 MMOL/L (20-31); CHLORIDE LEVEL 105 MMOL/L (98-107); CREATININE FOR GFR 0.57 MG/DL (0.70-1.30); GLOMERULAR FILTRATION RATE > 60.0 (>42); GLUCOSE, FASTING 114 MG/DL (74-106); POTASSIUM SERUM 3.9 MMOL/L (3.5-5.1); SODIUM LEVEL 144 MMOL/L (136-145)
[2022-03-31] MEDS: MOM 30ML SUSPENSION UDC PO SCH (08:07)
[2022-03-31] MEDS: INSULIN LISPRO (NovoLOG) PER UNIT SC SCH ×4 (08:08→21:00)
[2022-03-31] MEDS: ENOXAPARIN 60MG/0.6ML SYRINGE (J1650 PER 10MG) SC SCH ×2 (08:08→20:49)
[2022-03-31] MEDS: VITAMIN D 1,000 INTERNATIONAL UNITS TABLET PO SCH (08:09)
[2022-03-31] MEDS: PANTOPRAZOLE 40MG TAB (PROTONIX) PO SCH (08:09)
[2022-03-31] MEDS: SENNA 8.6 MG TAB (SENOKOT) PO SCH (08:09)
[2022-03-31] MEDS: FINASTERIDE 5MG TAB PO SCH (08:09)
[2022-03-31] MEDS: TORSEMIDE 20 MG TAB PO SCH (08:09)
[2022-03-31] MEDS: POTASSIUM CHLORIDE 10MEQ SR TABLET PO SCH (08:09)
[2022-03-31] MEDS: DOCUSATE SODIUM 100MG CAPSULE PO SCH (08:09)
[2022-03-31] MEDS: MAGNESIUM OXIDE 400MG TAB (MAG-OX) PO SCH ×2 (08:10→20:49)
[2022-03-31] MEDS: MIRALAX *UNIT DOSE* 17GM PACKET PO SCH (08:10)
[2022-03-31] MEDS: traMADol 50 MG TAB PO PRN ×2 (12:57→20:50)
[2022-04-01 05:35] VITALS: BP 123/63
[2022-04-01] MEDS: ACETAMINOPHEN 650MG ER TAB (TYLENOL ARTHRITIS) PO SCH ×3 (05:46→22:33)
[2022-04-01] MEDS: MIRALAX *UNIT DOSE* 17GM PACKET PO SCH (09:00)
[2022-04-01] MEDS: INSULIN LISPRO (NovoLOG) PER UNIT SC SCH ×4 (10:26→22:30)
[2022-04-01] MEDS: MOM 30ML SUSPENSION UDC PO SCH (10:27)
[2022-04-01] MEDS: ENOXAPARIN 60MG/0.6ML SYRINGE (J1650 PER 10MG) SC SCH ×2 (10:27→22:32)
[2022-04-01] MEDS: SENNA 8.6 MG TAB (SENOKOT) PO SCH (10:28)
[2022-04-01] MEDS: FINASTERIDE 5MG TAB PO SCH (10:28)
[2022-04-01] MEDS: POTASSIUM CHLORIDE 10MEQ SR TABLET PO SCH (10:28)
[2022-04-01] MEDS: TORSEMIDE 20 MG TAB PO SCH (10:28)
[2022-04-01] MEDS: DOCUSATE SODIUM 100MG CAPSULE PO SCH (10:28)
[2022-04-01] MEDS: PANTOPRAZOLE 40MG TAB (PROTONIX) PO SCH (10:28)
[2022-04-01] MEDS: VITAMIN D 1,000 INTERNATIONAL UNITS TABLET PO SCH (10:29)
[2022-04-01] MEDS: MAGNESIUM OXIDE 400MG TAB (MAG-OX) PO SCH ×2 (10:29→22:30)
[2022-04-01 14:00] VITALS: BP 140/63
[2022-04-01 20:00] VITALS: BP 136/68
[2022-04-02] MEDS: ACETAMINOPHEN 650MG ER TAB (TYLENOL ARTHRITIS) PO SCH ×3 (06:01→22:01)
[2022-04-02 06:38] VITALS: BP 124/63
[2022-04-02] MEDS: MIRALAX *UNIT DOSE* 17GM PACKET PO SCH (09:00)
[2022-04-02] MEDS: INSULIN LISPRO (NovoLOG) PER UNIT SC SCH ×4 (10:00→20:46)
[2022-04-02] MEDS: TORSEMIDE 20 MG TAB PO SCH (10:00)
[2022-04-02] MEDS: MOM 30ML SUSPENSION UDC PO SCH (10:00)
[2022-04-02] MEDS: POTASSIUM CHLORIDE 10MEQ SR TABLET PO SCH (10:01)
[2022-04-02] MEDS: ENOXAPARIN 60MG/0.6ML SYRINGE (J1650 PER 10MG) SC SCH ×2 (10:01→22:01)
[2022-04-02] MEDS: VITAMIN D 1,000 INTERNATIONAL UNITS TABLET PO SCH (10:01)
[2022-04-02] MEDS: SENNA 8.6 MG TAB (SENOKOT) PO SCH (10:02)
[2022-04-02] MEDS: MAGNESIUM OXIDE 400MG TAB (MAG-OX) PO SCH ×2 (10:02→22:02)
[2022-04-02] MEDS: FINASTERIDE 5MG TAB PO SCH (10:02)
[2022-04-02] MEDS: DOCUSATE SODIUM 100MG CAPSULE PO SCH (10:03)
[2022-04-02] MEDS: PANTOPRAZOLE 40MG TAB (PROTONIX) PO SCH (10:03)
[2022-04-02 20:59] VITALS: BP 124/61
[2022-04-03] MEDS: ACETAMINOPHEN 650MG ER TAB (TYLENOL ARTHRITIS) PO SCH ×3 (05:53→21:54)
[2022-04-03 06:50] VITALS: BP 137/66
[2022-04-03] MEDS: MAGNESIUM OXIDE 400MG TAB (MAG-OX) PO SCH ×2 (08:11→20:37)
[2022-04-03] MEDS: VITAMIN D 1,000 INTERNATIONAL UNITS TABLET PO SCH (08:11)
[2022-04-03] MEDS: DOCUSATE SODIUM 100MG CAPSULE PO SCH (08:11)
[2022-04-03] MEDS: POTASSIUM CHLORIDE 10MEQ SR TABLET PO SCH (08:14)
[2022-04-03] MEDS: MIRALAX *UNIT DOSE* 17GM PACKET PO SCH (08:14)
[2022-04-03] MEDS: SENNA 8.6 MG TAB (SENOKOT) PO SCH (08:14)
[2022-04-03] MEDS: PANTOPRAZOLE 40MG TAB (PROTONIX) PO SCH (08:14)
[2022-04-03] MEDS: INSULIN LISPRO (NovoLOG) PER UNIT SC SCH ×4 (08:14→20:36)
[2022-04-03] MEDS: MOM 30ML SUSPENSION UDC PO SCH (08:14)
[2022-04-03] MEDS: FINASTERIDE 5MG TAB PO SCH (08:14)
[2022-04-03] MEDS: ENOXAPARIN 60MG/0.6ML SYRINGE (J1650 PER 10MG) SC SCH ×2 (08:15→20:37)
[2022-04-03 08:17] VITALS: BP 137/65
[2022-04-03] MEDS: TORSEMIDE 20 MG TAB PO SCH (08:17)
[2022-04-03] MEDS ORDERED: MAGNESIUM OXIDE 400MG TAB (MAG-OX) PO ONE (09:00)
[2022-04-03 14:00] VITALS: BP 134/69
[2022-04-03] MEDS: traMADol 50 MG TAB PO PRN (20:37)
[2022-04-04 06:00] VITALS: BP 143/75
[2022-04-04] MEDS: ACETAMINOPHEN 650MG ER TAB (TYLENOL ARTHRITIS) PO SCH ×3 (06:05→22:00)
[2022-04-04] MEDS: INSULIN LISPRO (NovoLOG) PER UNIT SC SCH ×4 (08:38→21:00)
[2022-04-04] MEDS: ENOXAPARIN 60MG/0.6ML SYRINGE (J1650 PER 10MG) SC SCH ×2 (08:40→21:17)
[2022-04-04] MEDS: MOM 30ML SUSPENSION UDC PO SCH (08:41)
[2022-04-04] MEDS: DOCUSATE SODIUM 100MG CAPSULE PO SCH (08:42)
[2022-04-04] MEDS: SENNA 8.6 MG TAB (SENOKOT) PO SCH (08:42)
[2022-04-04] MEDS: FINASTERIDE 5MG TAB PO SCH (08:43)
[2022-04-04] MEDS: VITAMIN D 1,000 INTERNATIONAL UNITS TABLET PO SCH (08:43)
[2022-04-04] MEDS: MAGNESIUM OXIDE 400MG TAB (MAG-OX) PO SCH ×2 (08:43→21:16)
[2022-04-04] MEDS: PANTOPRAZOLE 40MG TAB (PROTONIX) PO SCH (08:44)
[2022-04-04] MEDS: TORSEMIDE 20 MG TAB PO SCH (08:45)
[2022-04-04] MEDS: POTASSIUM CHLORIDE 10MEQ SR TABLET PO SCH (08:45)
[2022-04-04] MEDS: MIRALAX *UNIT DOSE* 17GM PACKET PO SCH (09:00)
[2022-04-04] MEDS: traMADol 50 MG TAB PO PRN (21:17)
[2022-04-05] MEDS: ACETAMINOPHEN 650MG ER TAB (TYLENOL ARTHRITIS) PO SCH ×3 (05:30→21:26)
[2022-04-05 06:00] VITALS: BP 134/67
[2022-04-05] MEDS: MOM 30ML SUSPENSION UDC PO SCH (08:47)
[2022-04-05] MEDS: ENOXAPARIN 60MG/0.6ML SYRINGE (J1650 PER 10MG) SC SCH ×2 (08:47→21:26)
[2022-04-05] MEDS: INSULIN LISPRO (NovoLOG) PER UNIT SC SCH ×4 (08:47→21:00)
[2022-04-05] MEDS: TORSEMIDE 20 MG TAB PO SCH (08:48)
[2022-04-05] MEDS: DOCUSATE SODIUM 100MG CAPSULE PO SCH (08:48)
[2022-04-05] MEDS: POTASSIUM CHLORIDE 10MEQ SR TABLET PO SCH (08:49)
[2022-04-05] MEDS: MAGNESIUM OXIDE 400MG TAB (MAG-OX) PO SCH ×2 (08:50→21:26)
[2022-04-05] MEDS: PANTOPRAZOLE 40MG TAB (PROTONIX) PO SCH (08:51)
[2022-04-05] MEDS: SENNA 8.6 MG TAB (SENOKOT) PO SCH (08:51)
[2022-04-05] MEDS: FINASTERIDE 5MG TAB PO SCH (08:52)
[2022-04-05] MEDS: VITAMIN D 1,000 INTERNATIONAL UNITS TABLET PO SCH (08:52)
[2022-04-05] MEDS: MIRALAX *UNIT DOSE* 17GM PACKET PO SCH (08:53)
[2022-04-05] MEDS: traMADol 50 MG TAB PO PRN (21:26)
[2022-04-06 05:05] VITALS: BP 141/69
[2022-04-06] MEDS: ACETAMINOPHEN 650MG ER TAB (TYLENOL ARTHRITIS) PO SCH ×3 (05:38→21:11)
[2022-04-06 06:12] LABS: BASO # 0.1 10^3/uL (0.0-0.2); BASO % 0.9 % (0.0-1.0); EOS # 0.5 10^3/uL (0.0-0.5); EOS % 7.9 % (0.0-3.0); HEMATOCRIT 37.4 % (42.0-52.0); HEMOGLOBIN 11.2 g/dl (13.5-17.5); LYMPH # 1.9 10^3/uL (1.5-5.0); LYMPH % 32.7 % (24.0-44.0); MEAN CORPUSCULAR HEMOGLOBIN 24.9 pg (27.0-33.0); MEAN CORPUSCULAR HGB CONC 29.9 g/dl (32.0-36.5); MEAN CORPUSCULAR VOLUME 83.3 fl (80.0-96.0); MONO # 0.5 10^3/uL (0.0-0.8); MONO % 8.9 % (2.0-8.0); NEUTROPHILS # 2.8 10^3/uL (1.5-8.5); NEUTROPHILS % 49.4 % (36.0-66.0); PLATELET COUNT, AUTOMATED 261 10^3/uL (150-450); RED BLOOD COUNT 4.49 10^6/uL (4.30-6.10); WHITE BLOOD COUNT 5.7 10^3/uL (4.0-10.0)
[2022-04-06 06:29] LABS: MAGNESIUM LEVEL 1.7 MG/DL (1.8-2.4)
[2022-04-06 06:30] LABS: BLOOD UREA NITROGEN 16 MG/DL (9-23); CALCIUM LEVEL 8.7 MG/DL (8.3-10.6); CARBON DIOXIDE LEVEL 33 MMOL/L (20-31); CHLORIDE LEVEL 102 MMOL/L (98-107); GLOMERULAR FILTRATION RATE > 60.0 (>42); GLUCOSE, FASTING 123 MG/DL (74-106); POTASSIUM SERUM 3.8 MMOL/L (3.5-5.1); SODIUM LEVEL 140 MMOL/L (136-145)
[2022-04-06] MEDS: INSULIN LISPRO (NovoLOG) PER UNIT SC SCH ×4 (08:22→21:00)
[2022-04-06] MEDS: SENNA 8.6 MG TAB (SENOKOT) PO SCH (08:23)
[2022-04-06] MEDS: POTASSIUM CHLORIDE 10MEQ SR TABLET PO SCH (08:23)
[2022-04-06] MEDS: MAGNESIUM OXIDE 400MG TAB (MAG-OX) PO SCH ×2 (08:23→21:11)
[2022-04-06] MEDS: PANTOPRAZOLE 40MG TAB (PROTONIX) PO SCH (08:23)
[2022-04-06] MEDS: TORSEMIDE 20 MG TAB PO SCH (08:23)
[2022-04-06] MEDS: DOCUSATE SODIUM 100MG CAPSULE PO SCH (08:23)
[2022-04-06] MEDS: VITAMIN D 1,000 INTERNATIONAL UNITS TABLET PO SCH (08:24)
[2022-04-06] MEDS: FINASTERIDE 5MG TAB PO SCH (08:24)
[2022-04-06] MEDS: MIRALAX *UNIT DOSE* 17GM PACKET PO SCH (08:24)
[2022-04-06] MEDS: MOM 30ML SUSPENSION UDC PO SCH (08:24)
[2022-04-06] MEDS: ENOXAPARIN 60MG/0.6ML SYRINGE (J1650 PER 10MG) SC SCH ×2 (08:24→21:12)
[2022-04-07] MEDS: ACETAMINOPHEN 650MG ER TAB (TYLENOL ARTHRITIS) PO SCH (05:08)
[2022-04-07 05:34] VITALS: BP 123/65
[2022-04-07] MEDS: PANTOPRAZOLE 40MG TAB (PROTONIX) PO SCH (08:28)
[2022-04-07] MEDS: INSULIN LISPRO (NovoLOG) PER UNIT SC SCH ×2 (08:28→12:00)
[2022-04-07] MEDS: VITAMIN D 1,000 INTERNATIONAL UNITS TABLET PO SCH (08:29)
[2022-04-07] MEDS: MAGNESIUM OXIDE 400MG TAB (MAG-OX) PO SCH (08:29)
[2022-04-07] MEDS: POTASSIUM CHLORIDE 10MEQ SR TABLET PO SCH (08:29)
[2022-04-07] MEDS: TORSEMIDE 20 MG TAB PO SCH (08:30)
[2022-04-07] MEDS: SENNA 8.6 MG TAB (SENOKOT) PO SCH (08:30)
[2022-04-07] MEDS: FINASTERIDE 5MG TAB PO SCH (08:30)
[2022-04-07] MEDS: MOM 30ML SUSPENSION UDC PO SCH (08:30)
[2022-04-07] MEDS: ENOXAPARIN 60MG/0.6ML SYRINGE (J1650 PER 10MG) SC SCH (08:30)
[2022-04-07] MEDS: MIRALAX *UNIT DOSE* 17GM PACKET PO SCH (08:30)
[2022-04-07] MEDS: DOCUSATE SODIUM 100MG CAPSULE PO SCH (08:30)
== END 2022-04-07 12:30 | disposition home health service (06) | DRG 698 ==
LOC: M ED 09:40 → EDBD 09:40 → M ED INP 12:58 → M ICU 14:20 → M PCU 03-18 20:13 → M MS5PR 03-29 20:04
PROVIDERS: ADMIT Internal Medicine Critical Care Medicine; ATTEND Internal Medicine
DX: T83.511A Infection and inflammatory reaction due to indwelling urethral catheter, initial encounter (principal); G93.41 Metabolic encephalopathy; A41.9 Sepsis, unspecified organism; I50.33 Acute on chronic diastolic (congestive) heart failure; J96.01 Acute respiratory failure with hypoxia; J96.02 Acute respiratory failure with hypercapnia; E66.2 Morbid (severe) obesity with alveolar hypoventilation; Z68.43 Body mass index [BMI] 50.0-59.9, adult; R41.82 Altered mental status, unspecified; E11.9 Type 2 diabetes mellitus without complications; N40.1 Benign prostatic hyperplasia with lower urinary tract symptoms; R33.9 Retention of urine, unspecified; E83.42 Hypomagnesemia; D64.9 Anemia, unspecified; E55.9 Vitamin D deficiency, unspecified; E87.6 Hypokalemia; L30.4 Erythema intertrigo; N48.83 Acquired buried penis; D69.6 Thrombocytopenia, unspecified; K59.03 Drug induced constipation; T40.2X5A Adverse effect of other opioids, initial encounter; G89.29 Other chronic pain; Z79.84 Long term (current) use of oral hypoglycemic drugs; Z79.899 Other long term (current) drug therapy; Z88.7 Allergy status to serum and vaccine

== ENCOUNTER → 2022-04-17 | Outpatient (REF) | payer MEDICARE ==
[~2022-04-17] MED LIST changes: +ADVI200T PO; -FUROSEMIDE 20MG/2ML VIAL IV SCH; +POTA1TAB14 PO; +SIME125C4 PO; +ZINC220CA PO
[2022-04-17 15:36] LABS: MAGNESIUM LEVEL 1.6 MG/DL (1.8-2.4)
[2022-04-17 15:37] LABS: BLOOD UREA NITROGEN 11 MG/DL (9-23); CALCIUM LEVEL 9.2 MG/DL (8.3-10.6); CARBON DIOXIDE LEVEL 33 MMOL/L (20-31); CHLORIDE LEVEL 101 MMOL/L (98-107); CREATININE FOR GFR 0.54 MG/DL (0.70-1.30); GLOMERULAR FILTRATION RATE > 60.0 (>42); GLUCOSE, FASTING 83 MG/DL (74-106); POTASSIUM SERUM 4.4 MMOL/L (3.5-5.1); SODIUM LEVEL 144 MMOL/L (136-145)
== END ==
LOC: M LAB REF 14:16
PROVIDERS: ATTEND Physician Assistant
DX: E83.42 Hypomagnesemia (principal)

== ENCOUNTER → 2022-07-01 | Outpatient (CLI) | payer MEDICARE ==
[~2022-07-01] MED LIST changes: +SENN-186 PO; -SENN-80 PO
== END ==
LOC: M ADAMS 11:42
PROVIDERS: ATTEND Urology
DX: N20.0 Calculus of kidney (principal)

== ENCOUNTER → 2022-07-01 | Outpatient (REF) | payer MEDICARE ==
[2022-07-01 17:22] LABS: BASO # 0.1 10^3/uL (0.0-0.2); BASO % 0.8 % (0.0-1.0); EOS # 0.3 10^3/uL (0.0-0.5); EOS % 2.8 % (0.0-3.0); HEMATOCRIT 46.5 % (42.0-52.0); HEMOGLOBIN 13.3 g/dl (13.5-17.5); LYMPH # 1.7 10^3/uL (1.5-5.0); LYMPH % 19.1 % (24.0-44.0); MEAN CORPUSCULAR HEMOGLOBIN 24.9 pg (27.0-33.0); MEAN CORPUSCULAR HGB CONC 28.6 g/dl (32.0-36.5); MEAN CORPUSCULAR VOLUME 87.1 fl (80.0-96.0); MONO # 0.7 10^3/uL (0.0-0.8); MONO % 8.2 % (2.0-8.0); NEUTROPHILS # 6.2 10^3/uL (1.5-8.5); NEUTROPHILS % 68.9 % (36.0-66.0); PLATELET COUNT, AUTOMATED 251 10^3/uL (150-450); RED BLOOD COUNT 5.34 10^6/uL (4.30-6.10)
[2022-07-01 17:45] LABS: HEMOGLOBIN A1c 6.7 % (4.0-6.0)
[2022-07-01 17:59] LABS: ALBUMIN 2.9 G/DL (3.2-5.2); ALKALINE PHOSPHATASE 91 U/L (46-116); ALT/SGPT 14 U/L (7.0-40); AST/SGOT 17 U/L (<34); BILIRUBIN,TOTAL 0.5 MG/DL (0.3-1.2); BLOOD UREA NITROGEN 12 MG/DL (9-23); CALCIUM LEVEL 9.6 MG/DL (8.3-10.6); CARBON DIOXIDE LEVEL 36 MMOL/L (20-31); CHLORIDE LEVEL 101 MMOL/L (98-107); GLOMERULAR FILTRATION RATE > 60.0 (>42); GLUCOSE, FASTING 119 MG/DL (74-106); POTASSIUM SERUM 4.4 MMOL/L (3.5-5.1); SODIUM LEVEL 142 MMOL/L (136-145); TOTAL PROTEIN 7.4 G/DL (5.7-8.2)
[2022-07-01 18:01] LABS: THYROID STIMULATING HORMONE 1.794 uIU/ML (0.55-4.78)
[2022-07-01 18:02] LABS: FREE T4 0.77 NG/DL (0.89-1.76); VITAMIN B12 LEVEL 490 PG/ML (211-911)
== END ==
LOC: M SFHCADAM 11:18
PROVIDERS: ATTEND Physician Assistant
DX: E11.65 Type 2 diabetes mellitus with hyperglycemia (principal); I10 Essential (primary) hypertension; E53.8 Deficiency of other specified B group vitamins; E83.42 Hypomagnesemia

== ENCOUNTER → 2022-09-02 | Outpatient (REF) | payer MEDICARE ==
[~2022-09-02] MED LIST changes: +POTA-298 PO; -POTA1TAB14 PO
[2022-09-02 13:20] LABS: BASO # 0.1 10^3/uL (0.0-0.2); BASO % 1.1 % (0.0-1.0); EOS # 0.3 10^3/uL (0.0-0.5); EOS % 3.1 % (0.0-3.0); HEMATOCRIT 45.4 % (42.0-52.0); LYMPH # 1.7 10^3/uL (1.5-5.0); MEAN CORPUSCULAR HEMOGLOBIN 26.3 pg (27.0-33.0); MEAN CORPUSCULAR HGB CONC 30.8 g/dl (32.0-36.5); MEAN CORPUSCULAR VOLUME 85.3 fl (80.0-96.0); MONO # 0.7 10^3/uL (0.0-0.8); MONO % 7.8 % (2.0-8.0); NEUTROPHILS # 5.8 10^3/uL (1.5-8.5); NEUTROPHILS % 67.8 % (36.0-66.0); PLATELET COUNT, AUTOMATED 272 10^3/uL (150-450); RED BLOOD COUNT 5.32 10^6/uL (4.30-6.10); WHITE BLOOD COUNT 8.5 10^3/uL (4.0-10.0)
[2022-09-02 13:42] LABS: BLOOD UREA NITROGEN 11 MG/DL (9-23); CALCIUM LEVEL 9.5 MG/DL (8.3-10.6); CARBON DIOXIDE LEVEL 33 MMOL/L (20-31); CHLORIDE LEVEL 101 MMOL/L (98-107); CREATININE FOR GFR 0.63 MG/DL (0.70-1.30); GLOMERULAR FILTRATION RATE > 60.0 (>42); GLUCOSE, FASTING 105 MG/DL (74-106); POTASSIUM SERUM 4.1 MMOL/L (3.5-5.1); SODIUM LEVEL 140 MMOL/L (136-145)
== END ==
LOC: M SFHCADAM 10:31
PROVIDERS: ATTEND Physician Assistant
DX: J36 Peritonsillar abscess (principal)

== ENCOUNTER → 2022-09-17 | Outpatient (CLI) | payer MEDICARE ==
[~2022-09-17] MED LIST changes: +SENN-111 PO; -SENN18TA PO
== END ==
LOC: M RAD 11:06
PROVIDERS: ATTEND Urology
DX: M51.36 Other intervertebral disc degeneration, lumbar region (principal); N20.0 Calculus of kidney

== ENCOUNTER → 2022-09-17 | Outpatient (CLI) | payer MEDICARE ==
[~2022-09-17] MED LIST changes: +ISOVUE-370 76% 100ML VIAL As Ordered ONE
== END ==
LOC: M RAD 10:59
PROVIDERS: ATTEND Physician Assistant
DX: J36 Peritonsillar abscess (principal); M51.36 Other intervertebral disc degeneration, lumbar region; N20.0 Calculus of kidney
CPT/HCPCS: 70491; 74018; Q9967

== ENCOUNTER → 2022-09-25 | Outpatient (REF) | payer MEDICARE ==
[~2022-09-25] MED LIST changes: -ISOVUE-370 76% 100ML VIAL As Ordered ONE
== END ==
LOC: M LAB REF 08:18
PROVIDERS: ATTEND Otolaryngology
DX: C10.8 Malignant neoplasm of overlapping sites of oropharynx (principal)

== ENCOUNTER → 2022-10-13 | Outpatient (CLI) | payer MEDICARE ==
[~2022-10-13] MED LIST changes: +IBUP200C25 PO; +ISOVUE-370 76% 100ML VIAL As Ordered ONE
== END ==
LOC: M RAD 09:20
PROVIDERS: ATTEND Physician Assistant Medical
DX: C77.0 Secondary and unspecified malignant neoplasm of lymph nodes of head, face and neck (principal); C10.8 Malignant neoplasm of overlapping sites of oropharynx; R91.8 Other nonspecific abnormal finding of lung field; K74.60 Unspecified cirrhosis of liver

== ENCOUNTER → 2022-10-15 | Outpatient (CLI) | payer MEDICARE ==
[~2022-10-15] MED LIST changes: -ISOVUE-370 76% 100ML VIAL As Ordered ONE
== END ==
LOC: M ONCR 09:31
PROVIDERS: ATTEND General Practice
DX: C09.0 Malignant neoplasm of tonsillar fossa (principal); R91.8 Other nonspecific abnormal finding of lung field; E11.9 Type 2 diabetes mellitus without complications; N40.0 Benign prostatic hyperplasia without lower urinary tract symptoms; Z59.82 Transportation insecurity; Z71.2 Person consulting for explanation of examination or test findings; Z79.84 Long term (current) use of oral hypoglycemic drugs; Z79.899 Other long term (current) drug therapy; Z80.8 Family history of malignant neoplasm of other organs or systems; Z88.7 Allergy status to serum and vaccine
CPT/HCPCS: 31575; G0463

== ENCOUNTER 2022-11-05 09:24 | Outpatient (RCR) | payer MEDICARE ==
[2022-11-12] MEDS ORDERED: ONDA8TAB8 PO (12:12)
== END 2022-11-19 ==
LOC: M ONCR 09:24
PROVIDERS: ATTEND General Practice
DX: Z51.0 Encounter for antineoplastic radiation therapy (principal); C09.0 Malignant neoplasm of tonsillar fossa

== ENCOUNTER 2022-12-31 04:11 | Emergency (ER) | payer MEDICARE ==
[~2022-12-31] VITALS: Ht 170.2 cm; Wt 145.4 kg
[~2022-12-31 04:11] MED LIST changes: +ONDA8TAB8 PO; +POTA-298
[2022-12-31 05:00] LABS: HEMATOCRIT 43.5 % (42.0-52.0); HEMOGLOBIN 14.1 g/dl (13.5-17.5); MEAN CORPUSCULAR HEMOGLOBIN 27.4 pg (27.0-33.0); MEAN CORPUSCULAR HGB CONC 32.4 g/dl (32.0-36.5); MEAN CORPUSCULAR VOLUME 84.6 fl (80.0-96.0); PLATELET COUNT, AUTOMATED 248 10^3/uL (150-450); RED BLOOD COUNT 5.14 10^6/uL (4.30-6.10); WHITE BLOOD COUNT 8.1 10^3/uL (4.0-10.0)
[2022-12-31 05:21] LABS: ALBUMIN 2.5 G/DL (3.2-5.2); ALKALINE PHOSPHATASE 91 U/L (46-116); ALT/SGPT 20 U/L (7.0-40); AST/SGOT 31 U/L (<34); BILIRUBIN,TOTAL 0.9 MG/DL (0.3-1.2); BLOOD UREA NITROGEN 11 MG/DL (9-23); CALCIUM LEVEL 9.2 MG/DL (8.3-10.6); CARBON DIOXIDE LEVEL 30 MMOL/L (20-31); CHLORIDE LEVEL 104 MMOL/L (98-107); CREATININE FOR GFR 0.67 MG/DL (0.70-1.30); GLOMERULAR FILTRATION RATE > 60.0 (>42); GLUCOSE, FASTING 138 MG/DL (74-106); POTASSIUM SERUM 4.5 MMOL/L (3.5-5.1); SODIUM LEVEL 139 MMOL/L (136-145); TOTAL PROTEIN 7.7 G/DL (5.7-8.2)
[2022-12-31] MEDS ORDERED: DALBAVANCIN 1,500 MG in D5W 250 ML IV ONE (06:30)
[2022-12-31 08:54] VITALS: BP 120/57; TEMP 97.1; O2SAT 92
== END 2022-12-31 09:24 | disposition home or self-care (01) ==
LOC: M ED 04:11
DX: S90.821A Blister (nonthermal), right foot, initial encounter (principal); L03.115 Cellulitis of right lower limb; I87.2 Venous insufficiency (chronic) (peripheral); C02.9 Malignant neoplasm of tongue, unspecified; E11.9 Type 2 diabetes mellitus without complications; Z79.84 Long term (current) use of oral hypoglycemic drugs; Z79.899 Other long term (current) drug therapy; Z88.7 Allergy status to serum and vaccine
CPT/HCPCS: 80053; 85027; 96365; 99284; J0875

== ENCOUNTER 2023-01-06 08:41 | Outpatient (RCR) | payer MEDICARE | END 2023-01-19 | LOC: M ONCR 08:41 | PROVIDERS: ATTEND General Practice | DX: Z51.0 Encounter for antineoplastic radiation therapy (principal); C09.0 Malignant neoplasm of tonsillar fossa ==

== ENCOUNTER → 2023-01-25 | Outpatient (REF) | payer MEDICARE ==
[~2023-01-25] MED LIST changes: +MAGICMW PO
[2023-01-25 15:13] LABS: BASO # 0.1 10^3/uL (0.0-0.2); BASO % 1.6 % (0.0-1.0); EOS # 0.2 10^3/uL (0.0-0.5); HEMATOCRIT 42.6 % (42.0-52.0); HEMOGLOBIN 13.5 g/dl (13.5-17.5); LYMPH # 1.2 10^3/uL (1.5-5.0); MEAN CORPUSCULAR HEMOGLOBIN 26.7 pg (27.0-33.0); MEAN CORPUSCULAR HGB CONC 31.7 g/dl (32.0-36.5); MEAN CORPUSCULAR VOLUME 84.4 fl (80.0-96.0); MONO # 0.7 10^3/uL (0.0-0.8); MONO % 9.3 % (2.0-8.0); NEUTROPHILS # 5.1 10^3/uL (1.5-8.5); PLATELET COUNT, AUTOMATED 235 10^3/uL (150-450); RED BLOOD COUNT 5.05 10^6/uL (4.30-6.10); WHITE BLOOD COUNT 7.3 10^3/uL (4.0-10.0)
[2023-01-25 15:41] LABS: ALBUMIN 2.2 G/DL (3.2-5.2); ALKALINE PHOSPHATASE 83 U/L (46-116); ALT/SGPT 12 U/L (7.0-40); AST/SGOT 25 U/L (<34); BILIRUBIN,TOTAL 0.5 MG/DL (0.3-1.2); BLOOD UREA NITROGEN 10 MG/DL (9-23); CALCIUM LEVEL 8.4 MG/DL (8.3-10.6); CARBON DIOXIDE LEVEL 32 MMOL/L (20-31); CHLORIDE LEVEL 100 MMOL/L (98-107); CREATININE FOR GFR 0.58 MG/DL (0.70-1.30); GLOMERULAR FILTRATION RATE > 60.0 (>42); GLUCOSE, FASTING 86 MG/DL (74-106); POTASSIUM SERUM 3.1 MMOL/L (3.5-5.1); SODIUM LEVEL 138 MMOL/L (136-145); TOTAL PROTEIN 7.1 G/DL (5.7-8.2)
[2023-01-25 15:43] LABS: FREE T4 0.81 NG/DL (0.89-1.76); THYROID STIMULATING HORMONE 1.251 uIU/ML (0.55-4.78)
[2023-01-25 16:22] LABS: HEPATITIS B CORE ANTIBODY IGM NEGATIVE (NEGATIVE); HEPATITIS C VIRUS ABY INDEX 0.25 INDEX (<0.8)
== END ==
LOC: M SHH 14:51
PROVIDERS: ATTEND Internal Medicine Medical Oncology
DX: C10.9 Malignant neoplasm of oropharynx, unspecified (principal)

== ENCOUNTER → 2023-01-26 | Outpatient (CLI) | payer MEDICARE | LOC: M ONCR 10:32 | PROVIDERS: ATTEND General Practice | DX: C09.0 Malignant neoplasm of tonsillar fossa (principal); Z79.620 Long term (current) use of immunosuppressive biologic; Z92.3 Personal history of irradiation ==

== ENCOUNTER 2023-04-02 02:52 | Inpatient (IN) | payer MEDICARE ==
[2023-04-02] VITALS (8 sets, daily range): BP systolic 100–110; BP diastolic 50–57; TEMP 97.5–98.1; O2SAT 87–94
[~2023-04-02] VITALS: Ht 167.6 cm; Wt 121.0 kg
[~2023-04-02 02:52] MED LIST changes: +JANU100T PO
[2023-04-02] MEDS ORDERED: KEYT1INJ IV (03:13)
[2023-04-02 04:05] LABS: APPEARANCE, URINE CLOUDY (CLEAR); BACTERIA, URINE AUTO NEGATIVE (NEGATIVE); BILIRUBIN, URINE AUTO NEGATIVE (NEGATIVE); BLOOD, URINE BLOOD 3+ (NEGATIVE); CALCIUM OXALATE CRYSTALS SMALL; COLOR, URINE AMBER (YELLOW); GLUCOSE, URINE (UA) AUTO NEGATIVE (NEGATIVE); GRANULAR CAST, URINE AUTO 5 /LPF; KETONE, URINE AUTO NEGATIVE (NEGATIVE); LEUKOCYTE ESTERASE, URINE AUTO 3+ (NEGATIVE); MUCUS, URINE SMALL (NEGATIVE); NITRITE, URINE AUTO NEGATIVE (NEGATIVE); PROTEIN, URINE AUTO 2+ mg/dL (NEGATIVE); RBC, URINE AUTO TNTC /HPF (0-3); SPECIFIC GRAVITY URINE AUTO 1.012 (1.002-1.035); SQUAMOUS EPITHELIAL CELL UR AU 3 /HPF (0-6); UROBILINOGEN, URINE AUTO 0.2 mg/dL (0.0-2.0); WBC, URINE AUTO TNTC /HPF (0-3)
[2023-04-02 05:31] LABS: BASO # 0.1 10^3/uL (0.0-0.2); BASO % 0.4 % (0.0-1.0); HEMATOCRIT 44.2 % (42.0-52.0); HEMOGLOBIN 14.5 g/dl (13.5-17.5); LYMPH # 0.5 10^3/uL (1.5-5.0); LYMPH % 2.1 % (24.0-44.0); MEAN CORPUSCULAR HEMOGLOBIN 27.7 pg (27.0-33.0); MEAN CORPUSCULAR HGB CONC 32.8 g/dl (32.0-36.5); MEAN CORPUSCULAR VOLUME 84.5 fl (80.0-96.0); MONO # 1.4 10^3/uL (0.0-0.8); MONO % 5.5 % (2.0-8.0); NEUTROPHILS # 22.4 10^3/uL (1.5-8.5); NEUTROPHILS % 91.5 % (36.0-66.0); PLATELET COUNT, AUTOMATED 216 10^3/uL (150-450); RED BLOOD COUNT 5.23 10^6/uL (4.30-6.10); WHITE BLOOD COUNT 24.4 10^3/uL (4.0-10.0)
[2023-04-02] MEDS ORDERED: NS 1,000 ML IV ONE (05:50)
[2023-04-02 06:03] LABS: C REACTIVE PROTEIN QUANTITATIV 14.6 MG/DL (<1.0)
[2023-04-02 06:04] LABS: CALCIUM LEVEL 9.3 MG/DL (8.3-10.6); CREATININE FOR GFR 1.46 MG/DL (0.70-1.30); GLOMERULAR FILTRATION RATE 50.7 (>42); POTASSIUM SERUM 3.3 MMOL/L (3.5-5.1)
[2023-04-02] MEDS ORDERED: PIPERACILLIN/TAZOBACTAM SOD 4.5 GM in D5W MINI-BAG PLUS 50 ML IV ONE (06:35)
[2023-04-02 07:34] LABS: RSV AMPLIFICATION NEGATIVE (NEGATIVE)
[2023-04-02] MEDS ORDERED: ONDA8TAB8 SL (07:51)
[2023-04-02] MEDS ORDERED: MAGICMW PO (07:51)
[2023-04-02] MEDS ORDERED: POTA-298 PO (07:51)
[2023-04-02] MEDS ORDERED: HOME MED LIST COMPLETE! XX SCH (08:00)
[2023-04-02] MEDS: DOCUSATE SODIUM 100MG CAPSULE PO SCH ×2 (09:00→21:00)
[2023-04-02] MEDS ORDERED: PIPERACILLIN/TAZOBACTAM SOD 3.375 GM in D5W MINI-BAG PLUS 50 ML IV SCH (10:05)
[2023-04-02] MEDS ORDERED: MORPHINE 2 MG/ML 1ML VIAL IV PRN (10:05)
[2023-04-02] MEDS ORDERED: MOM 30ML SUSPENSION UDC PO PRN (10:05)
[2023-04-02] MEDS ORDERED: MAGIC MOUTHWASH SUSPENSION BTL PO PRN (10:10)
[2023-04-02] MEDS: LR 1,000 ML IV SCH ×2 (10:39→18:52)
[2023-04-02 11:25] LABS: INR 1.64; PROTHROMBIN TIME 18.9 SECONDS (12.5-14.5)
[2023-04-02] MEDS ORDERED: MEROPENEM INJ 2 GM in NS 100 ML IV SCH (11:50)
[2023-04-02] MEDS ORDERED: GLUCAGON INJ 1MG VIAL SC PRN (11:55)
[2023-04-02] MEDS ORDERED: GLUCOSE 4GM CHEW TABLET PO PRN (11:55)
[2023-04-02] MEDS ORDERED: DEXTROSE 50% 50ML SYRINGE IV PRN (11:55)
[2023-04-02] MEDS: INSULIN LISPRO (NovoLOG) PER UNIT SC SCH ×2 (12:00→18:00)
[2023-04-02] MEDS ORDERED: PIPERACILLIN/TAZOBACTAM SOD 4.5 GM in D5W MINI-BAG PLUS 50 ML IV SCH (14:00)
[2023-04-02] MEDS: MEROPENEM INJ 1 GM in IV 1 EA IV SCH ×2 (14:03→21:12)
[2023-04-02] MEDS: MORPHINE 4 MG/ML 1ML VIAL IV PRN (14:29)
[2023-04-02] MEDS ORDERED: ISOVUE-300 61% 100ML VIAL As Ordered ONE (15:12)
[2023-04-02] MEDS ORDERED: MIDAZOLAM INJ 2MG/2ML VIAL As Ordered ONE (15:23)
[2023-04-02] MEDS ORDERED: LIDOCAINE 2% 100MG/5ML SDV (FOR ANES.) As Ordered ONE (15:24)
[2023-04-02] MEDS ORDERED: propofoL 200 MG/20 ML VIAL As Ordered ONE (15:24)
[2023-04-02] MEDS ORDERED: fentaNYL 100 MCG/2 ML INJECTION As Ordered ONE (15:24)
[2023-04-02] MEDS ORDERED: ONDANSETRON 4MG 2ML VIAL As Ordered ONE (15:24)
[2023-04-02] MEDS ORDERED: LIDOCAINE 2% 5ML JELLY UROJET As Ordered ONE (15:35)
[2023-04-03] VITALS (13 sets, daily range): BP systolic 98–122; BP diastolic 53–60; TEMP 97.6–98.1; O2SAT 90–96
[2023-04-03] MEDS: INSULIN LISPRO (NovoLOG) PER UNIT SC SCH ×5 (05:55→23:44)
[2023-04-03] MEDS: MEROPENEM INJ 1 GM in IV 1 EA IV SCH ×3 (05:55→21:01)
[2023-04-03 06:01] LABS: BASO # 0.1 10^3/uL (0.0-0.2); BASO % 0.5 % (0.0-1.0); EOS % 0.1 % (0.0-3.0); HEMATOCRIT 36.1 % (42.0-52.0); LYMPH # 0.5 10^3/uL (1.5-5.0); MEAN CORPUSCULAR HEMOGLOBIN 27.9 pg (27.0-33.0); MEAN CORPUSCULAR VOLUME 84.7 fl (80.0-96.0); MONO # 1.2 10^3/uL (0.0-0.8); MONO % 8.8 % (2.0-8.0); NEUTROPHILS # 11.5 10^3/uL (1.5-8.5); NEUTROPHILS % 85.9 % (36.0-66.0); PLATELET COUNT, AUTOMATED 158 10^3/uL (150-450); RED BLOOD COUNT 4.26 10^6/uL (4.30-6.10); WHITE BLOOD COUNT 13.4 10^3/uL (4.0-10.0)
[2023-04-03 06:06] LABS: HEMOGLOBIN 11.9 g/dl (13.5-17.5)
[2023-04-03 06:08] LABS: CALCIUM LEVEL 8.2 MG/DL (8.3-10.6); CREATININE FOR GFR 1.27 MG/DL (0.70-1.30); GLOMERULAR FILTRATION RATE 59.5 (>42); POTASSIUM SERUM 3.5 MMOL/L (3.5-5.1)
[2023-04-03 07:34] LABS: PROCALCITONIN 1.62 ng/ml
[2023-04-03] MEDS: MORPHINE 4 MG/ML 1ML VIAL IV PRN (07:54)
[2023-04-03] MEDS: NYSTATIN 500,000U/5ML SUSP UDC SS SCH ×4 (08:00→23:44)
[2023-04-03] MEDS: DOCUSATE SODIUM 100MG CAPSULE PO SCH ×2 (09:00→20:57)
[2023-04-03] MEDS: IPRATROPIUM 0.5MG/ALBUTEROL 2.5MG INH SOL UD 3ML (DUONEB) NEB SCH ×3 (11:54→20:00)
[2023-04-03] MEDS: FUROSEMIDE 40MG/4ML VIAL IV SCH (13:04)
[2023-04-03] MEDS: HEPARIN SOD (PORCINE) 5000UNITS/ML 1ML VIAL/SYRINGE SQ SCH ×2 (13:04→21:02)
[2023-04-04] VITALS (25 sets, daily range): BP systolic 99–120; BP diastolic 53–60; TEMP 97–98.3; O2SAT 84–97
[2023-04-04 05:07] LABS: BASO # 0.1 10^3/uL (0.0-0.2); BASO % 0.6 % (0.0-1.0); EOS # 0.1 10^3/uL (0.0-0.5); EOS % 0.6 % (0.0-3.0); HEMATOCRIT 36.1 % (42.0-52.0); HEMOGLOBIN 11.8 g/dl (13.5-17.5); LYMPH # 0.7 10^3/uL (1.5-5.0); LYMPH % 6.7 % (24.0-44.0); MEAN CORPUSCULAR HEMOGLOBIN 27.5 pg (27.0-33.0); MEAN CORPUSCULAR HGB CONC 32.7 g/dl (32.0-36.5); MEAN CORPUSCULAR VOLUME 84.1 fl (80.0-96.0); MONO # 1.1 10^3/uL (0.0-0.8); MONO % 11.3 % (2.0-8.0); NEUTROPHILS # 7.7 10^3/uL (1.5-8.5); NEUTROPHILS % 80.3 % (36.0-66.0); PLATELET COUNT, AUTOMATED 190 10^3/uL (150-450); RED BLOOD COUNT 4.29 10^6/uL (4.30-6.10); WHITE BLOOD COUNT 9.6 10^3/uL (4.0-10.0)
[2023-04-04 05:31] LABS: BLOOD UREA NITROGEN 32 MG/DL (9-23); CALCIUM LEVEL 8.6 MG/DL (8.3-10.6); CARBON DIOXIDE LEVEL 30 MMOL/L (20-31); CHLORIDE LEVEL 107 MMOL/L (98-107); CREATININE FOR GFR 0.91 MG/DL (0.70-1.30); GLOMERULAR FILTRATION RATE > 60.0 (>42); GLUCOSE, FASTING 118 MG/DL (74-106); POTASSIUM SERUM 3.2 MMOL/L (3.5-5.1); SODIUM LEVEL 144 MMOL/L (136-145)
[2023-04-04] MEDS: INSULIN LISPRO (NovoLOG) PER UNIT SC SCH ×4 (06:00→23:31)
[2023-04-04] MEDS: NYSTATIN 500,000U/5ML SUSP UDC SS SCH ×4 (06:00→23:31)
[2023-04-04] MEDS: MEROPENEM INJ 1 GM in IV 1 EA IV SCH ×3 (06:13→21:17)
[2023-04-04] MEDS: HEPARIN SOD (PORCINE) 5000UNITS/ML 1ML VIAL/SYRINGE SQ SCH ×3 (06:13→21:18)
[2023-04-04] MEDS: IPRATROPIUM 0.5MG/ALBUTEROL 2.5MG INH SOL UD 3ML (DUONEB) NEB SCH ×4 (08:44→20:34)
[2023-04-04] MEDS: DOCUSATE SODIUM 100MG CAPSULE PO SCH ×2 (09:45→20:36)
[2023-04-04] MEDS: POTASSIUM CHLORIDE 10MEQ SR TABLET PO SCH ×2 (09:45→21:18)
[2023-04-04] MEDS: FUROSEMIDE 40MG/4ML VIAL IV SCH (12:42)
[2023-04-04] MEDS: ACETAMINOPHEN TAB 650MG DOSE (2X325MG) PO PRN (17:25)
[2023-04-05] VITALS (9 sets, daily range): BP systolic 100–118; BP diastolic 57–62; TEMP 97.2–98.4; O2SAT 90–96
[2023-04-05] MEDS: NYSTATIN 100,000 UNITS/GM TOPICAL PWD 15GM TOP SCH ×3 (00:43→20:19)
[2023-04-05] MEDS: NYSTATIN 500,000U/5ML SUSP UDC SS SCH ×4 (05:35→23:54)
[2023-04-05] MEDS: HEPARIN SOD (PORCINE) 5000UNITS/ML 1ML VIAL/SYRINGE SQ SCH ×3 (05:49→21:56)
[2023-04-05] MEDS: MEROPENEM INJ 1 GM in IV 1 EA IV SCH ×2 (05:49→13:50)
[2023-04-05 07:31] LABS: BASO # 0.1 10^3/uL (0.0-0.2); BASO % 0.7 % (0.0-1.0); EOS # 0.2 10^3/uL (0.0-0.5); EOS % 2.1 % (0.0-3.0); HEMATOCRIT 37.2 % (42.0-52.0); HEMOGLOBIN 12.3 g/dl (13.5-17.5); LYMPH # 0.8 10^3/uL (1.5-5.0); LYMPH % 11.5 % (24.0-44.0); MEAN CORPUSCULAR HEMOGLOBIN 27.9 pg (27.0-33.0); MEAN CORPUSCULAR HGB CONC 33.1 g/dl (32.0-36.5); MEAN CORPUSCULAR VOLUME 84.4 fl (80.0-96.0); MONO # 0.8 10^3/uL (0.0-0.8); MONO % 11.5 % (2.0-8.0); NEUTROPHILS # 5.3 10^3/uL (1.5-8.5); NEUTROPHILS % 73.9 % (36.0-66.0); PLATELET COUNT, AUTOMATED 190 10^3/uL (150-450); RED BLOOD COUNT 4.41 10^6/uL (4.30-6.10); WHITE BLOOD COUNT 7.2 10^3/uL (4.0-10.0)
[2023-04-05 07:56] LABS: BLOOD UREA NITROGEN 23 MG/DL (9-23); CALCIUM LEVEL 8.4 MG/DL (8.3-10.6); CARBON DIOXIDE LEVEL 33 MMOL/L (20-31); CHLORIDE LEVEL 107 MMOL/L (98-107); CREATININE FOR GFR 0.76 MG/DL (0.70-1.30); GLOMERULAR FILTRATION RATE > 60.0 (>42); GLUCOSE, FASTING 110 MG/DL (74-106); POTASSIUM SERUM 3.3 MMOL/L (3.5-5.1); SODIUM LEVEL 145 MMOL/L (136-145)
[2023-04-05] MEDS: IPRATROPIUM 0.5MG/ALBUTEROL 2.5MG INH SOL UD 3ML (DUONEB) NEB SCH ×4 (08:36→20:30)
[2023-04-05] MEDS: DOCUSATE SODIUM 100MG CAPSULE PO SCH ×2 (09:06→20:18)
[2023-04-05] MEDS: POTASSIUM CHLORIDE 10MEQ SR TABLET PO SCH ×2 (09:06→20:18)
[2023-04-05] MEDS: SITagliptin 50 MG TAB (JANUVIA) PO SCH (09:07)
[2023-04-05] MEDS: ACETAMINOPHEN TAB 650MG DOSE (2X325MG) PO PRN (09:07)
[2023-04-05] MEDS: FUROSEMIDE 40MG/4ML VIAL IV SCH (11:45)
[2023-04-05] MEDS: KETOROLAC 30 MG/ML 1ML VIAL IV PRN ×2 (11:56→23:55)
[2023-04-05] MEDS ORDERED: LevoFLOXacin IV 750 MG in IV 1 EA IV SCH (20:00)
[2023-04-06 03:29] VITALS: BP 125/69; TEMP 98; O2SAT 92
[2023-04-06] MEDS: HEPARIN SOD (PORCINE) 5000UNITS/ML 1ML VIAL/SYRINGE SQ SCH (06:15)
[2023-04-06] MEDS: NYSTATIN 500,000U/5ML SUSP UDC SS SCH ×2 (06:16→11:21)
[2023-04-06 07:09] LABS: BASO # 0.1 10^3/uL (0.0-0.2); EOS # 0.2 10^3/uL (0.0-0.5); EOS % 2.9 % (0.0-3.0); HEMATOCRIT 37.5 % (42.0-52.0); HEMOGLOBIN 12.5 g/dl (13.5-17.5); LYMPH # 0.9 10^3/uL (1.5-5.0); LYMPH % 13.3 % (24.0-44.0); MEAN CORPUSCULAR HEMOGLOBIN 27.8 pg (27.0-33.0); MEAN CORPUSCULAR HGB CONC 33.3 g/dl (32.0-36.5); MEAN CORPUSCULAR VOLUME 83.3 fl (80.0-96.0); MONO # 0.9 10^3/uL (0.0-0.8); MONO % 12.3 % (2.0-8.0); NEUTROPHILS # 4.9 10^3/uL (1.5-8.5); NEUTROPHILS % 70.2 % (36.0-66.0); PLATELET COUNT, AUTOMATED 194 10^3/uL (150-450)
[2023-04-06 07:41] LABS: BLOOD UREA NITROGEN 21 MG/DL (9-23); CALCIUM LEVEL 8.2 MG/DL (8.3-10.6); CARBON DIOXIDE LEVEL 32 MMOL/L (20-31); CHLORIDE LEVEL 105 MMOL/L (98-107); GLOMERULAR FILTRATION RATE > 60.0 (>42); GLUCOSE, FASTING 112 MG/DL (74-106); POTASSIUM SERUM 3.4 MMOL/L (3.5-5.1); SODIUM LEVEL 141 MMOL/L (136-145)
[2023-04-06 07:46] VITALS: BP 106/58; TEMP 98.6; O2SAT 93
[2023-04-06] MEDS: IPRATROPIUM 0.5MG/ALBUTEROL 2.5MG INH SOL UD 3ML (DUONEB) NEB SCH ×2 (08:06→12:00)
[2023-04-06] MEDS: SITagliptin 50 MG TAB (JANUVIA) PO SCH (09:31)
[2023-04-06] MEDS: POTASSIUM CHLORIDE 10MEQ SR TABLET PO SCH (09:31)
[2023-04-06] MEDS: DOCUSATE SODIUM 100MG CAPSULE PO SCH (09:31)
[2023-04-06] MEDS: ACETAMINOPHEN TAB 650MG DOSE (2X325MG) PO PRN (09:32)
[2023-04-06] MEDS: NYSTATIN 100,000 UNITS/GM TOPICAL PWD 15GM TOP SCH (09:41)
[2023-04-06] MEDS: FUROSEMIDE 40MG/4ML VIAL IV SCH (11:21)
[2023-04-06] MEDS ORDERED: TORS20TA2 PO (11:29)
[2023-04-06] MEDS ORDERED: LEVO1TAB40 PO (11:29)
[2023-04-06] MEDS ORDERED: SPIR-10 PO (11:29)
== END 2023-04-06 14:10 | disposition home or self-care (01) | DRG 659 ==
LOC: M ED 02:52 → M ED INP 10:05 → M PCU 17:58
PROVIDERS: ADMIT Student in an Organized Health Care Education/Training Program; ATTEND Internal Medicine Nephrology
PROC: 0T778DZ Dilation of Left Ureter with Intraluminal Device, Via Natural or Artificial Opening Endoscopic (ICD-10-PCS; principal; 2023-04-02 15:30)
PROC: 0TCB8ZZ Extirpation of Matter from Bladder, Via Natural or Artificial Opening Endoscopic (ICD-10-PCS; 2023-04-05)
PROC: B246ZZZ Ultrasonography of Right and Left Heart (ICD-10-PCS; 2023-04-05)
DX: T83.511A Infection and inflammatory reaction due to indwelling urethral catheter, initial encounter (principal); A41.51 Sepsis due to Escherichia coli [E. coli]; J96.01 Acute respiratory failure with hypoxia; I50.33 Acute on chronic diastolic (congestive) heart failure; N17.9 Acute kidney failure, unspecified; N13.6 Pyonephrosis; E87.20 Acidosis, unspecified; Z68.41 Body mass index [BMI] 40.0-44.9, adult; N40.1 Benign prostatic hyperplasia with lower urinary tract symptoms; I27.20 Pulmonary hypertension, unspecified; I35.8 Other nonrheumatic aortic valve disorders; I11.0 Hypertensive heart disease with heart failure; R33.9 Retention of urine, unspecified; I50.812 Chronic right heart failure; E66.01 Morbid (severe) obesity due to excess calories; I48.0 Paroxysmal atrial fibrillation; C10.9 Malignant neoplasm of oropharynx, unspecified; K42.9 Umbilical hernia without obstruction or gangrene; B96.20 Unspecified Escherichia coli [E. coli] as the cause of diseases classified elsewhere; E11.9 Type 2 diabetes mellitus without complications; I89.0 Lymphedema, not elsewhere classified; E87.6 Hypokalemia; I87.2 Venous insufficiency (chronic) (peripheral); B96.5 Pseudomonas (aeruginosa) (mallei) (pseudomallei) as the cause of diseases classified elsewhere; L40.8 Other psoriasis; Z87.442 Personal history of urinary calculi; Z79.84 Long term (current) use of oral hypoglycemic drugs; Z79.899 Other long term (current) drug therapy; Z88.7 Allergy status to serum and vaccine; Z79.69 Long term (current) use of other immunomodulators and immunosuppressants

== ENCOUNTER → 2023-04-21 | Outpatient (REF) | payer MEDICARE ==
[~2023-04-21] MED LIST changes: +KEYT1INJ IV; +LEVO1TAB40 PO; +ONDA8TAB8 SL; +SPIR-10 PO
[2023-04-21 13:41] LABS: HEMATOCRIT 42.2 % (42.0-52.0); HEMOGLOBIN 13.7 g/dl (13.5-17.5); MEAN CORPUSCULAR HEMOGLOBIN 27.5 pg (27.0-33.0); MEAN CORPUSCULAR HGB CONC 32.5 g/dl (32.0-36.5); MEAN CORPUSCULAR VOLUME 84.6 fl (80.0-96.0); PLATELET COUNT, AUTOMATED 267 10^3/uL (150-450); RED BLOOD COUNT 4.99 10^6/uL (4.30-6.10); WHITE BLOOD COUNT 8.6 10^3/uL (4.0-10.0)
[2023-04-21 13:52] LABS: HEMOGLOBIN A1c 5.5 % (4.0-6.0)
[2023-04-21 13:56] LABS: INR 1.35; PROTHROMBIN TIME 16.2 SECONDS (12.5-14.5)
[2023-04-21 14:00] LABS: THYROID STIMULATING HORMONE 1.013 uIU/ML (0.55-4.78)
[2023-04-21 14:13] LABS: ALBUMIN 2.3 G/DL (3.2-5.2); ALKALINE PHOSPHATASE 96 U/L (46-116); ALT/SGPT 18 U/L (7.0-40); AST/SGOT 29 U/L (<34); BILIRUBIN,TOTAL 0.8 MG/DL (0.3-1.2); BLOOD UREA NITROGEN 13 MG/DL (9-23); CALCIUM LEVEL 9.5 MG/DL (8.3-10.6); CARBON DIOXIDE LEVEL 32 MMOL/L (20-31); CHLORIDE LEVEL 104 MMOL/L (98-107); CREATININE FOR GFR 0.79 MG/DL (0.70-1.30); GLOMERULAR FILTRATION RATE > 60.0 (>42); GLUCOSE, FASTING 89 MG/DL (74-106); POTASSIUM SERUM 2.9 MMOL/L (3.5-5.1); SODIUM LEVEL 139 MMOL/L (136-145)
== END ==
LOC: M SFHCADAM 10:54
PROVIDERS: ATTEND Family Medicine
DX: I48.0 Paroxysmal atrial fibrillation (principal); A49.9 Bacterial infection, unspecified; Z16.12 Extended spectrum beta lactamase (ESBL) resistance; K74.60 Unspecified cirrhosis of liver; E11.65 Type 2 diabetes mellitus with hyperglycemia

== ENCOUNTER → 2023-04-29 | Outpatient (REF) | payer MEDICARE ==
[2023-04-29 14:39] LABS: BLOOD UREA NITROGEN 10 MG/DL (9-23); CALCIUM LEVEL 8.6 MG/DL (8.3-10.6); CARBON DIOXIDE LEVEL 33 MMOL/L (20-31); CHLORIDE LEVEL 104 MMOL/L (98-107); CREATININE FOR GFR 0.77 MG/DL (0.70-1.30); GLOMERULAR FILTRATION RATE > 60.0 (>42); GLUCOSE, FASTING 103 MG/DL (74-106); MAGNESIUM LEVEL 1.4 MG/DL (1.8-2.4); POTASSIUM SERUM 3.7 MMOL/L (3.5-5.1); SODIUM LEVEL 141 MMOL/L (136-145)
== END ==
LOC: M SFHCADAM 10:24
PROVIDERS: ATTEND Family Medicine
DX: E87.6 Hypokalemia (principal)

== ENCOUNTER → 2023-05-18 | Outpatient (REF) | payer MEDICARE ==
[~2023-05-18] MED LIST changes: -MIRA1POW3 PO; +MIRA33506 PO
[2023-05-18 16:16] LABS: HEMATOCRIT 41.8 % (42.0-52.0); HEMOGLOBIN 13.4 g/dl (13.5-17.5); MEAN CORPUSCULAR HEMOGLOBIN 28.2 pg (27.0-33.0); MEAN CORPUSCULAR HGB CONC 32.1 g/dl (32.0-36.5); PLATELET COUNT, AUTOMATED 306 10^3/uL (150-450); RED BLOOD COUNT 4.75 10^6/uL (4.30-6.10); WHITE BLOOD COUNT 7.1 10^3/uL (4.0-10.0)
[2023-05-18 16:22] LABS: ALBUMIN 2.2 G/DL (3.2-5.2); ALKALINE PHOSPHATASE 94 U/L (46-116); ALT/SGPT < 9 U/L (7.0-40); AST/SGOT 22 U/L (<34); BILIRUBIN,TOTAL 0.6 MG/DL (0.3-1.2); BLOOD UREA NITROGEN 10 MG/DL (9-23); CALCIUM LEVEL 9.5 MG/DL (8.3-10.6); CARBON DIOXIDE LEVEL 31 MMOL/L (20-31); CHLORIDE LEVEL 105 MMOL/L (98-107); CREATININE FOR GFR 0.89 MG/DL (0.70-1.30); GLOMERULAR FILTRATION RATE > 60.0 (>42); GLUCOSE, FASTING 104 MG/DL (74-106); MAGNESIUM LEVEL 1.7 MG/DL (1.8-2.4); POTASSIUM SERUM 3.8 MMOL/L (3.5-5.1); SODIUM LEVEL 140 MMOL/L (136-145); TOTAL PROTEIN 7.3 G/DL (5.7-8.2)
[2023-05-18 16:55] LABS: HEMOGLOBIN A1c 5.2 % (4.0-6.0)
== END ==
LOC: M SFHCADAM 11:42
PROVIDERS: ATTEND Family Medicine
DX: E87.6 Hypokalemia (principal); E11.65 Type 2 diabetes mellitus with hyperglycemia; L89.301 Pressure ulcer of unspecified buttock, stage 1; E83.42 Hypomagnesemia

== ENCOUNTER → 2023-05-25 | Outpatient (REF) | payer MEDICARE ==
[2023-05-25 13:45] LABS: APPEARANCE, URINE CLOUDY (CLEAR); BACTERIA, URINE AUTO 2+ (NEGATIVE); BILIRUBIN, URINE AUTO NEGATIVE (NEGATIVE); BLOOD, URINE BLOOD 2+ (NEGATIVE); COLOR, URINE YELLOW (YELLOW); GLUCOSE, URINE (UA) AUTO NEGATIVE (NEGATIVE); KETONE, URINE AUTO NEGATIVE (NEGATIVE); LEUKOCYTE ESTERASE, URINE AUTO 3+ (NEGATIVE); MUCUS, URINE SMALL (NEGATIVE); NITRITE, URINE AUTO NEGATIVE (NEGATIVE); PROTEIN, URINE AUTO 1+ mg/dL (NEGATIVE); RBC, URINE AUTO 161 /HPF (0-3); SPECIFIC GRAVITY URINE AUTO 1.011 (1.002-1.035); SQUAMOUS EPITHELIAL CELL UR AU 2 /HPF (0-6); UROBILINOGEN, URINE AUTO 0.2 mg/dL (0.0-2.0); WBC, URINE AUTO TNTC /HPF (0-3)
== END ==
LOC: M SMT 13:20
PROVIDERS: ATTEND Nurse Practitioner Family
DX: Z01.818 Encounter for other preprocedural examination (principal); Z79.899 Other long term (current) drug therapy

== ENCOUNTER 2023-06-11 08:25 | Day surgery (SDC) | payer MEDICARE ==
[~2023-06-11] VITALS: Ht 170.2 cm; Wt 118.8 kg
[~2023-06-11 08:25] MED LIST changes: +MAGN400T2 PO; +MUPI2OI TOP; +PROBCAP14 PO; +THERTAB52 PO; +VITA-183 PO
[2023-06-11] MEDS ORDERED: LR 1,000 ML IV SCH ×2 (08:40→11:25)
[2023-06-11] MEDS ORDERED: ONDANSETRON 4MG 2ML VIAL As Ordered ONE (09:45)
[2023-06-11] MEDS ORDERED: KETOROLAC 60MG 2ML VIAL As Ordered ONE (09:45)
[2023-06-11] MEDS ORDERED: ACETAMINOPHEN 1000MG 100ML IV BAG As Ordered ONE (09:45)
[2023-06-11] MEDS ORDERED: ROCURONIUM BROMIDE 50MG/5ML VIAL As Ordered ONE (09:46)
[2023-06-11] MEDS ORDERED: SUGAMMADEX SODIUM 500 MG/5 ML VIAL (BRIDION) As Ordered ONE (09:46)
[2023-06-11] MEDS ORDERED: LIDOCAINE 2% 100MG/5ML SDV (FOR ANES.) As Ordered ONE (09:46)
[2023-06-11] MEDS ORDERED: propofoL 200 MG/20 ML VIAL As Ordered ONE (09:46)
[2023-06-11] MEDS ORDERED: ISOVUE-300 61% 100ML VIAL As Ordered ONE (10:11)
[2023-06-11] MEDS ORDERED: fentaNYL 100 MCG/2 ML INJECTION As Ordered ONE (10:13)
[2023-06-11] MEDS ORDERED: MIDAZOLAM INJ 2MG/2ML VIAL As Ordered ONE (10:13)
[2023-06-11] MEDS: LevoFLOXacin IV 500 MG in IV 1 EA IV ONE (10:19)
[2023-06-11] MEDS ORDERED: SUCCINYLCHOLINE 100MG/5ML SYRINGE As Ordered ONE (10:38)
[2023-06-11] MEDS ORDERED: LABETALOL 100MG/20ML VIAL As Ordered ONE (11:06)
[2023-06-11] MEDS ORDERED: oxyCODONE 5MG TAB PO PRN (11:25)
[2023-06-11] MEDS ORDERED: fentaNYL 100 MCG/2 ML INJECTION IV PRN (11:25)
[2023-06-11] MEDS ORDERED: ONDANSETRON 4MG 2ML VIAL IV PRN (11:25)
[2023-06-11] MEDS ORDERED: HYDROMORPHONE HCL 0.5 MG/ 0.5 ML SYRINGE IV PRN (11:25)
[2023-06-11 12:55] VITALS: BP 112/61; TEMP 97.4; O2SAT 97
== END 2023-06-11 13:04 | disposition home or self-care (01) ==
LOC: M SDC 08:25
PROVIDERS: ATTEND Urology
DX: N20.2 Calculus of kidney with calculus of ureter (principal); Z53.09 Procedure and treatment not carried out because of other contraindication
CPT/HCPCS: 52356; C1894; C2617; J0131; J0330; J1100; J1920; J1956; J2250; J2405; J3010; Q9967

== ENCOUNTER → 2023-06-29 | Outpatient (REF) | payer MEDICARE ==
[2023-06-29 11:55] LABS: APPEARANCE, URINE CLOUDY (CLEAR); BACTERIA, URINE AUTO 1+ (NEGATIVE); BILIRUBIN, URINE AUTO NEGATIVE (NEGATIVE); BLOOD, URINE BLOOD 3+ (NEGATIVE); COLOR, URINE YELLOW (YELLOW); GLUCOSE, URINE (UA) AUTO NEGATIVE (NEGATIVE); KETONE, URINE AUTO NEGATIVE (NEGATIVE); LEUKOCYTE ESTERASE, URINE AUTO 3+ (NEGATIVE); NITRITE, URINE AUTO NEGATIVE (NEGATIVE); PROTEIN, URINE AUTO 1+ mg/dL (NEGATIVE); RBC, URINE AUTO 1 /HPF (0-3); SPECIFIC GRAVITY URINE AUTO 1.001 (1.002-1.035); SQUAMOUS EPITHELIAL CELL UR AU 0 /HPF (0-6); UROBILINOGEN, URINE AUTO 0.2 mg/dL (0.0-2.0); WBC, URINE AUTO 4 /HPF (0-3)
== END ==
LOC: M SMT 10:02
PROVIDERS: ATTEND Urology
DX: Z01.818 Encounter for other preprocedural examination (principal); N20.0 Calculus of kidney; N39.0 Urinary tract infection, site not specified

== ENCOUNTER 2023-07-04 08:10 | Inpatient (IN) | payer MEDICARE ==
[~2023-07-04] VITALS: Ht 170.2 cm; Wt 100.6 kg
[2023-07-04 08:56] LABS: VENOUS BASE EXCESS 10.8 (-2.0-2.0); VENOUS HCO3 37.8 MMOL/L (23.0-27.0); VENOUS O2 SATURATION 37.1 % (60.0-80.0); VENOUS PARTIAL PRESSURE CO2 58.2 mmHg (38.0-50.0); VENOUS PARTIAL PRESSURE O2 23.1 mmHg (30.0-50.0); VENOUS STANDARD HCO3 32.8 MMOL/L; VENOUS TOTAL CO2 39.5 MMOL/L (24.0-28.0)
[2023-07-04 09:02] LABS: BASO # 0.1 10^3/uL (0.0-0.2); BASO % 0.7 % (0.0-1.0); EOS # 0.2 10^3/uL (0.0-0.5); EOS % 1.5 % (0.0-3.0); HEMOGLOBIN 15.1 g/dl (13.5-17.5); LYMPH # 1.1 10^3/uL (1.5-5.0); LYMPH % 11.2 % (24.0-44.0); MEAN CORPUSCULAR HEMOGLOBIN 28.7 pg (27.0-33.0); MEAN CORPUSCULAR HGB CONC 32.1 g/dl (32.0-36.5); MEAN CORPUSCULAR VOLUME 89.2 fl (80.0-96.0); MONO # 0.7 10^3/uL (0.0-0.8); MONO % 7.4 % (2.0-8.0); NEUTROPHILS # 7.9 10^3/uL (1.5-8.5); NEUTROPHILS % 78.9 % (36.0-66.0); PLATELET COUNT, AUTOMATED 238 10^3/uL (150-450); RED BLOOD COUNT 5.27 10^6/uL (4.30-6.10)
[2023-07-04 09:42] LABS: ALBUMIN 2.2 G/DL (3.2-5.2); ALKALINE PHOSPHATASE 109 U/L (46-116); ALT/SGPT < 9 U/L (7.0-40); AST/SGOT 34 U/L (<34); BILIRUBIN,DIRECT 0.7 MG/DL (<0.4); BILIRUBIN,TOTAL 1.6 MG/DL (0.3-1.2); BLOOD UREA NITROGEN 21 MG/DL (9-23); CALCIUM LEVEL 13.2 MG/DL (8.3-10.6); CARBON DIOXIDE LEVEL > 40.0 MMOL/L (20-31); CHLORIDE LEVEL 96 MMOL/L (98-107); CREATININE FOR GFR 0.88 MG/DL (0.70-1.30); GLOMERULAR FILTRATION RATE > 60.0 (>42); GLUCOSE, FASTING 122 MG/DL (74-106); POTASSIUM SERUM 2.6 MMOL/L (3.5-5.1); SODIUM LEVEL 141 MMOL/L (136-145); TOTAL PROTEIN 7.1 G/DL (5.7-8.2)
[2023-07-04] MEDS: KCL 10MEQ/100ML SWI (KRUN) 10 MEQ in IV 1 EA IV ONE (09:52)
[2023-07-04] MEDS ORDERED: ISOVUE-370 76% 100ML VIAL As Ordered ONE (10:44)
[2023-07-04 10:55] LABS: CK-MB VALUE MASS < 1.0 NG/ML (<3.6)
[2023-07-04 10:59] LABS: CPK CREATINE PHOSPHOKINASE 41 U/L (46-171); MB/CK RELATIVE INDEX 2.43 (< OR =4)
[2023-07-04] MEDS ORDERED: HOME MED LIST COMPLETE! XX SCH (11:10)
[2023-07-04] MEDS: cefTRIAXone SOD 1 GM in D5W MINI-BAG PLUS 50 ML IV ONE (11:52)
[2023-07-04] MEDS: AZITHROMYCIN INJ 500 MG, VIAL MATE ADAPTER 1 EACH in D5W 250 ML IV ONE (15:30)
[2023-07-04 17:57] LABS: MAGNESIUM LEVEL 1.6 MG/DL (1.8-2.4)
[2023-07-04] MEDS: NS 1,000 ML IV SCH (18:12)
[2023-07-04] MEDS: POTASSIUM CHLORIDE 10% LIQ 20MEQ/15ML UDC PO ONE (18:18)
[2023-07-04] MEDS: KCL 10MEQ/100ML SWI (KRUN) 10 MEQ in IV 1 EA IV SCH (18:25)
[2023-07-04] MEDS: NYSTATIN 500,000U/5ML SUSP UDC SS SCH (18:26)
[2023-07-04] MEDS: PANTOPRAZOLE 40MG VIAL IV SCH (18:52)
[2023-07-04] MEDS: LEVALBUTEROL 1.25MG 0.5ML CONCENTRATE NEB NEB SCH (20:18)
[2023-07-04] MEDS: LevoFLOXacin IV 750 MG in IV 1 EA IV SCH (20:27)
[2023-07-04 20:35] LABS: HEMATOCRIT 44.7 % (42.0-52.0); HEMOGLOBIN 14.8 g/dl (13.5-17.5); MEAN CORPUSCULAR HEMOGLOBIN 29.2 pg (27.0-33.0); MEAN CORPUSCULAR HGB CONC 33.1 g/dl (32.0-36.5); MEAN CORPUSCULAR VOLUME 88.3 fl (80.0-96.0); PLATELET COUNT, AUTOMATED 234 10^3/uL (150-450); RED BLOOD COUNT 5.06 10^6/uL (4.30-6.10); WHITE BLOOD COUNT 11.3 10^3/uL (4.0-10.0)
[2023-07-04 21:04] LABS: ALBUMIN 2.2 G/DL (3.2-5.2); ALKALINE PHOSPHATASE 110 U/L (46-116); ALT/SGPT 9 U/L (7.0-40); AST/SGOT 39 U/L (<34); BILIRUBIN,TOTAL 1.2 MG/DL (0.3-1.2); BLOOD UREA NITROGEN 18 MG/DL (9-23); CARBON DIOXIDE LEVEL 39 MMOL/L (20-31); CHLORIDE LEVEL 98 MMOL/L (98-107); CREATININE FOR GFR 0.79 MG/DL (0.70-1.30); GLOMERULAR FILTRATION RATE > 60.0 (>42); GLUCOSE, FASTING 119 MG/DL (74-106); MAGNESIUM LEVEL 1.6 MG/DL (1.8-2.4); POTASSIUM SERUM 2.9 MMOL/L (3.5-5.1); SODIUM LEVEL 142 MMOL/L (136-145); TOTAL PROTEIN 7.1 G/DL (5.7-8.2)
[2023-07-04 21:26] VITALS: BP 106/56; TEMP 98.6; O2SAT 92
[2023-07-04] MEDS: HEPARIN SOD (PORCINE) 5000UNITS/ML 1ML VIAL/SYRINGE SC SCH (22:02)
[2023-07-04] MEDS: CALCITONIN SALMON (MIACALCIN) 400INTERNATIONAL UNITS/2ML VIAL SC SCH (22:03)
[2023-07-04] MEDS: ZOLEDRONIC ACID 4 MG in IV 1 EA IV ONE (22:43)
[2023-07-04] MEDS: metroNIDAZOLE 500 MG in IV 1 EA IV SCH (23:57)
[2023-07-05] VITALS (13 sets, daily range): BP systolic 102–115; BP diastolic 56–63; TEMP 97.1–99.3; O2SAT 92–98
[2023-07-05] MEDS: KCL 10MEQ/100ML SWI (KRUN) 10 MEQ in IV 1 EA IV SCH ×2 (00:30→04:25)
[2023-07-05] MEDS: MAG SULF 1GM/100ML (MAG RUN) 1 GM in IV 1 EA IV SCH (01:11)
[2023-07-05 03:24] LABS: ALBUMIN 2.1 G/DL (3.2-5.2); ALKALINE PHOSPHATASE 126 U/L (46-116); ALT/SGPT 10 U/L (7.0-40); AST/SGOT 36 U/L (<34); BILIRUBIN,TOTAL 1.4 MG/DL (0.3-1.2); BLOOD UREA NITROGEN 16 MG/DL (9-23); CALCIUM LEVEL 11.9 MG/DL (8.3-10.6); CARBON DIOXIDE LEVEL 36 MMOL/L (20-31); CHLORIDE LEVEL 101 MMOL/L (98-107); CREATININE FOR GFR 0.78 MG/DL (0.70-1.30); GLOMERULAR FILTRATION RATE > 60.0 (>42); GLUCOSE, FASTING 158 MG/DL (74-106); POTASSIUM SERUM 2.9 MMOL/L (3.5-5.1); SODIUM LEVEL 140 MMOL/L (136-145); TOTAL PROTEIN 6.7 G/DL (5.7-8.2)
[2023-07-05] MEDS: KCL 40MEQ in NS 1000ML 1,000 ML IV SCH (04:25)
[2023-07-05 05:51] LABS: HEMATOCRIT 42.2 % (42.0-52.0); MEAN CORPUSCULAR HEMOGLOBIN 29.4 pg (27.0-33.0); MEAN CORPUSCULAR HGB CONC 33.2 g/dl (32.0-36.5); MEAN CORPUSCULAR VOLUME 88.5 fl (80.0-96.0); PLATELET COUNT, AUTOMATED 242 10^3/uL (150-450); RED BLOOD COUNT 4.77 10^6/uL (4.30-6.10); WHITE BLOOD COUNT 13.3 10^3/uL (4.0-10.0)
[2023-07-05 06:15] LABS: ALBUMIN 1.9 G/DL (3.2-5.2); ALKALINE PHOSPHATASE 118 U/L (46-116); ALT/SGPT 10 U/L (7.0-40); AST/SGOT 30 U/L (<34); BILIRUBIN,TOTAL 1.2 MG/DL (0.3-1.2); BLOOD UREA NITROGEN 16 MG/DL (9-23); CALCIUM LEVEL 11.8 MG/DL (8.3-10.6); CARBON DIOXIDE LEVEL 36 MMOL/L (20-31); CHLORIDE LEVEL 102 MMOL/L (98-107); CREATININE FOR GFR 0.77 MG/DL (0.70-1.30); GLOMERULAR FILTRATION RATE > 60.0 (>42); GLUCOSE, FASTING 135 MG/DL (74-106); MAGNESIUM LEVEL 1.9 MG/DL (1.8-2.4); SODIUM LEVEL 143 MMOL/L (136-145); TOTAL PROTEIN 6.4 G/DL (5.7-8.2)
[2023-07-05] MEDS ORDERED: DEXTROSE 50% 50ML SYRINGE IV PRN (10:25)
[2023-07-05] MEDS ORDERED: GLUCOSE 4GM CHEW TABLET PO PRN (10:25)
[2023-07-05] MEDS ORDERED: GLUCAGON INJ 1MG VIAL SC PRN (10:25)
[2023-07-05] MEDS: INSULIN LISPRO (NovoLOG) PER UNIT SC SCH (11:56)
[2023-07-05] MEDS: MORPHINE 2 MG/ML 1ML VIAL IV PRN (12:22)
[2023-07-05] MEDS: KETOROLAC 30 MG/ML 1ML VIAL IV ONE (17:15)
[2023-07-05] MEDS: METOCLOPRAMIDE INJ 10MG/2ML VIAL IV ONE (17:39)
[2023-07-05] MEDS: MUPIROCIN 2% OINT 22 GM TUBE TOP SCH (18:47)
[2023-07-06] VITALS (17 sets, daily range): BP systolic 111–123; BP diastolic 60–66; TEMP 97–97.8; O2SAT 86–99
[2023-07-06] MEDS: KETOROLAC 30 MG/ML 1ML VIAL IV ONE (05:27)
[2023-07-06 05:40] LABS: BASO % 0.4 % (0.0-1.0); EOS # 0.1 10^3/uL (0.0-0.5); EOS % 0.5 % (0.0-3.0); HEMATOCRIT 40.2 % (42.0-52.0); HEMOGLOBIN 13.1 g/dl (13.5-17.5); LYMPH % 9.9 % (24.0-44.0); MEAN CORPUSCULAR HEMOGLOBIN 29.4 pg (27.0-33.0); MEAN CORPUSCULAR HGB CONC 32.6 g/dl (32.0-36.5); MEAN CORPUSCULAR VOLUME 90.3 fl (80.0-96.0); MONO # 0.8 10^3/uL (0.0-0.8); MONO % 8.5 % (2.0-8.0); NEUTROPHILS # 7.7 10^3/uL (1.5-8.5); NEUTROPHILS % 80.4 % (36.0-66.0); PLATELET COUNT, AUTOMATED 214 10^3/uL (150-450); RED BLOOD COUNT 4.45 10^6/uL (4.30-6.10); WHITE BLOOD COUNT 9.6 10^3/uL (4.0-10.0)
[2023-07-06 06:27] LABS: ALBUMIN 1.8 G/DL (3.2-5.2); ALKALINE PHOSPHATASE 101 U/L (46-116); ALT/SGPT < 9 U/L (7.0-40); AST/SGOT 30 U/L (<34); BILIRUBIN,TOTAL 0.7 MG/DL (0.3-1.2); BLOOD UREA NITROGEN 17 MG/DL (9-23); CALCIUM LEVEL 10.3 MG/DL (8.3-10.6); CARBON DIOXIDE LEVEL 33 MMOL/L (20-31); CHLORIDE LEVEL 110 MMOL/L (98-107); CREATININE FOR GFR 0.73 MG/DL (0.70-1.30); GLOMERULAR FILTRATION RATE > 60.0 (>42); GLUCOSE, FASTING 122 MG/DL (74-106); MAGNESIUM LEVEL 1.6 MG/DL (1.8-2.4); POTASSIUM SERUM 3.8 MMOL/L (3.5-5.1); SODIUM LEVEL 147 MMOL/L (136-145); TOTAL PROTEIN 6.1 G/DL (5.7-8.2)
[2023-07-06] MEDS: MAG SULF 1GM/100ML (MAG RUN) 1 GM in IV 1 EA IV SCH (08:42)
[2023-07-06] MEDS ORDERED: VARIBAR PUDDING 40% w/v 230ML TUBE As Ordered ONE (11:03)
[2023-07-06] MEDS ORDERED: E-Z-PAQUE 96% w/w SUSP 176GM BTL As Ordered ONE (11:03)
[2023-07-06] MEDS ORDERED: BARIUM SULFATE 700 MG TABLET (E-Z-DISK) As Ordered ONE (11:03)
[2023-07-06] MEDS ORDERED: VARIBAR NECTAR 40% w/v 240ML SUSP BTL As Ordered ONE (11:03)
[2023-07-06] MEDS ORDERED: LEVALBUTEROL 1.25MG 0.5ML CONCENTRATE NEB NEB PRN (11:10)
[2023-07-06] MEDS: KETOROLAC 30 MG/ML 1ML VIAL IV PRN (12:27)
[2023-07-06] MEDS ORDERED: SCOPOLAMINE 1MG TRANSDERMAL PATCH TOP PRN (16:00)
[2023-07-06] MEDS: LIDOCAINE 5% (LIDODERM) PATCH TD ONE (23:59)
[2023-07-07] MEDS: MAGIC MOUTHWASH SUSPENSION BTL SS PRN (13:31)
[2023-07-08] MEDS: ONDANSETRON 4MG 2ML VIAL IV PRN (01:38)
[2023-07-08] MEDS: NS 1,000 ML IV SCH (10:11)
[2023-07-09] MEDS: LIDOCAINE 5% (LIDODERM) PATCH TD SCH (09:15)
[2023-07-09] MEDS: LIDOCAINE 5% (LIDODERM) PATCH TD ONE (17:13)
[2023-07-10] MEDS ORDERED: ACETAMINOPHEN 325MG/10.15ML UDC PO ONE (06:00)
[2023-07-10] MEDS: LIDOCAINE 5% (LIDODERM) PATCH TD SCH (15:59)
[2023-07-10] MEDS: LORazepam 2 MG/ML 1ML VIAL IV PRN (16:05)
[2023-07-10] MEDS: MORPHINE 2 MG/ML 1ML VIAL IV PRN (17:20)
== END 2023-07-11 10:44 | disposition expired | DRG 698 ==
LOC: EDBD 08:10 → M ED 08:10 → M ED INP 16:44 → ENRESERV 19:52 → M PCU 21:16 → M MS5PR 07-07 09:46
PROVIDERS: ADMIT Internal Medicine; ATTEND Internal Medicine Nephrology
DX: T83.511A Infection and inflammatory reaction due to indwelling urethral catheter, initial encounter (principal); J96.01 Acute respiratory failure with hypoxia; J69.0 Pneumonitis due to inhalation of food and vomit; R65.21 Severe sepsis with septic shock; A41.9 Sepsis, unspecified organism; I50.32 Chronic diastolic (congestive) heart failure; C78.00 Secondary malignant neoplasm of unspecified lung; C79.89 Secondary malignant neoplasm of other specified sites; B37.0 Candidal stomatitis; L97.909 Non-pressure chronic ulcer of unspecified part of unspecified lower leg with unspecified severity; R57.1 Hypovolemic shock; N40.1 Benign prostatic hyperplasia with lower urinary tract symptoms; E11.9 Type 2 diabetes mellitus without complications; I48.0 Paroxysmal atrial fibrillation; C02.9 Malignant neoplasm of tongue, unspecified; I27.20 Pulmonary hypertension, unspecified; Z66 Do not resuscitate; E87.6 Hypokalemia; E83.52 Hypercalcemia; R13.12 Dysphagia, oropharyngeal phase; N39.0 Urinary tract infection, site not specified; K74.60 Unspecified cirrhosis of liver; I87.2 Venous insufficiency (chronic) (peripheral); Z85.819 Personal history of malignant neoplasm of unspecified site of lip, oral cavity, and pharynx; Z92.3 Personal history of irradiation; Z79.899 Other long term (current) drug therapy; Z88.7 Allergy status to serum and vaccine

== ENCOUNTER 2023-07-09 11:01 | Outpatient (RCR) | payer MEDICARE ==
[~2023-07-09 11:01] MED LIST changes: -GARL500C2 PO; +GARL500C6 PO
== END 2023-07-11 ==
LOC: M ONCR 11:01
PROVIDERS: ATTEND General Practice
DX: Z51.0 Encounter for antineoplastic radiation therapy (principal); C09.0 Malignant neoplasm of tonsillar fossa